=== PATIENT | female | born 1935 | race Hispanic/Latino ===

== ENCOUNTER 2017-04-07 12:11 | Emergency (ER) | payer MEDICARE, OTHER ==
[~2017-04-07] VITALS: Ht 149.9 cm; Wt 95.3 kg
[~2017-04-07 12:11] MED LIST: AMBIEN10 MG PO; ASPIR 8181 MG PO; Bumetanide PO; CALCIUM 500+D1 EACH PO; CATAPRES0.1 MG PO; CETIRIZINE HCL10 M1; CLONIDINE HCL0.1 MG PO; FAMOTIDINE20 MG PO; FEXOFENADINE H180 MG PO; FUROSEMIDE40 MG PO; GABAPENTIN100 MG PO; HYDRALAZINE HCL25 MG PO; LORATADINE10 MG PO; LOSARTAN POTAS100 MG PO; METOPROLOL TART50 MG PO; PANTOPRAZOLE SO40 MG PO; PLAVIX75 MG PO; PREDNISONE10 MG PO; SIMVASTATIN20 MG PO; TRAMADOL-ACETAMI1 EA PO; Torsemide PO; XOPENEX0.63 MG/3 INH
[2017-04-07] MEDS ORDERED: TETANUS/DIPHTHERIA TOX ADULT 0.5 ML SYR IM ONE (12:30)
[2017-04-07] MEDS ORDERED: BACITRACIN ZINC 0.9GM TP ONE (12:45)
== END 2017-04-07 13:05 | disposition home or self-care (01) ==
LOC: ER 12:11
DX: S81.811A Laceration without foreign body, right lower leg, initial encounter (principal); W22.09XA Striking against other stationary object, initial encounter; Y92.008 Other place in unspecified non-institutional (private) residence as the place of occurrence of the external cause; I10 Essential (primary) hypertension; I50.9 Heart failure, unspecified; Z86.73 Personal history of transient ischemic attack (TIA), and cerebral infarction without residual deficits; Z96.653 Presence of artificial knee joint, bilateral
CPT/HCPCS: 90471; 90714; 99283

== ENCOUNTER 2018-01-26 10:45 | Emergency (ER) | payer OTHER, MEDICARE ==
[~2018-01-26] VITALS: Ht 149.9 cm; Wt 78.9 kg
--- NOTE | 2018-01-26 12:06 | Diagnostic Imaging Report ---
EXAMINATION: CHEST SINGLE (PORTABLE) INDICATION: \S\shortness of breath \[id number] \S\1105 \S\Y COMPARISON: CT chest 03/06/2015 FINDINGS: AP view TUBES and LINES: None. LUNGS: Lungs are well inflated. Bilateral interstitial lung disease with worsening groundglass opacities in both lung bases. Unchanged bilateral hilar traction bronchiectasis. Rightward deviation of the trachea likely due to a tortuous thoracic aorta. PLEURA: No pleural effusion or pneumothorax. HEART AND MEDIASTINUM: The cardiac silhouette is within normal limits. Moderate calcifications of the aortic arch.. BONES AND SOFT TISSUES: Partially visualized intramedullary herman in the right humerus. Soft tissues are unremarkable. UPPER ABDOMEN: No free air under the diaphragm. IMPRESSION: Stable bronchiectasis and interstitial lung disease with worsening groundglass opacities in both lung bases may be due to new interstitial edema or atypical infection. Recommend follow-up chest radiograph in 4 weeks if patient becomes ambulatory. Signed by: Dr. Kat Babin M.D. on 01/26/2018 12:03 PM
[2018-01-26 12:13] LABS: INR 0.95; PROTHROMBIN TIME 13.5 seconds (11.9-14.5)
[2018-01-26 12:14] LABS: PARTIAL THROMBOPLASTIN TIME 33.3 seconds (23.8-35.5)
--- NOTE | 2018-01-26 12:19 | Diagnostic Imaging Report ---
EXAMINATION: Head CT HISTORY: Hand numbness COMPARISON: Head CT on 03/16/2015 TECHNIQUE: Multidetector axial images were obtained without contrast from the foramen magnum to the vertex . The images were reconstructed using brain and bone algorithms. Thin section brain images were reformatted into coronal and sagittal planes. Intravenous contrast: None. Image quality: Motion/streaking artifact limits the evaluation of the skull base and posterior cranial fossa. Dose modulation, iterative reconstruction, and/or weight based adjustment of the mA/kV was utilized to reduce the radiation dose to as low as reasonably achievable. FINDINGS: Parenchyma: 1. No mass, hemorrhage or acute cortical vascular insult. 2. 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 4. Hypodensities within the deep but predominantly subcortical white matter are nonspecific but are compatible with chronic small vessel ischemic changes. Subcortical distribution of chronic small vessel ischemic changes, such as that within the anterior temporal poles bilaterally are nonspecific but can be seen in CADASIL (cerebral autosomal dominant arteriopathy with subcortical infarcts and leukoencephalopathy). Extra-axial spaces:No abnormal density. No extra-axial fluid collections Brain volume: Normal for age. Ventricles: No hydrocephalus or displacement. Arteries: No density suggestive of thrombus. Dural sinuses: No abnormal density. Extra-axial spaces: No abnormal density. Foramen magnum: No mass, Chiari malformation, or basilar invagination. Sella: No obvious mass. Paranasal/mastoid sinuses: Imaged portions unremarkable. Skull/Scalp: No lytic or blastic lesions. No fractures. IMPRESSION: 1. No acute intracranial abnormalities. 2. Unchanged moderate nonspecific white matter changes as detailed above. 3. 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 Signed by: Dr. Elaine Parker M.D. on 01/26/2018 12:15 PM
[2018-01-26 12:23] LABS: BASOPHILS % 0.7 % (0.0-1.0); EOSINOPHILS # (AUTO) 0.3 (0.0-0.4); EOSINOPHILS % 5.8 % (0.0-6.0); HEMOGLOBIN 11.5 g/dL (12.0-16.0); LYMPHOCYTES # (AUTO) 2.4 (1.0-3.2); MEAN CORPUSCULAR HEMOGLOBIN 51.3 pg (28-32); MEAN CORPUSCULAR HGB CONC 52.8 g/dL (31-35); MEAN CORPUSCULAR VOLUME 97.3 fL (81-99); MONOCYTES # (AUTO) 0.7 (0.2-0.8); MONOCYTES % 11.6 % (4.4-11.3); NEUTROPHILS # (AUTO) 2.5 (2.1-6.9); NEUTROPHILS % 41.7 % (38.7-80.0); PLATELET COUNT 149 x10e3/uL (140-360); RED BLOOD COUNT 2.24 x10e6/uL (3.6-5.1); RED CELL DISTRIBUTION WIDTH 13.4 % (11.7-14.4)
[2018-01-26 12:39] LABS: CLARITY,URINE CLEAR (CLEAR); COLOR,URINE STRAW (YELLOW); LEUKOCYTE ESTERASE ,URINE NEGATIVE (NEGATIVE)
[2018-01-26 12:40] LABS: BILIRUBIN,URINE NEGATIVE (NEGATIVE); HEMATOCRIT 21.8 % (34.2-44.1); KETONES,URINE NEGATIVE (NEGATIVE); NITRITE,URINE NEGATIVE (NEGATIVE); PROTEIN,URINE DIPSTICK NEGATIVE (NEGATIVE); URINE UROBILINOGEN 0.2 mg/dL (0.2 - 1)
[2018-01-26 12:43] LABS: EPITHELIAL CELLS,URINE RARE /LPF
[2018-01-26 12:52] LABS: CREATINE KINASE MB 1.2 ng/mL (0-5.0)
[2018-01-26 14:32] LABS: ALBUMIN/GLOBULIN RATIO 1.4 (0.8-2.0); ANION GAP 17.4 mmol/L (8-16); CALCIUM 9.7 mg/dL (8.4-10.2); CREATININE, SERUM 1.07 mg/dL (0.57-1.11); MAGNESIUM 1.8 MG/DL (1.3-2.1); POTASSIUM 4.4 mmol/L (3.5-5.1)
[2018-01-26 14:42] LABS: B-TYPE NATRIURETIC PEPTIDE2 68.5 pg/mL (0-100)
[2018-01-26 17:25] VITALS: BP 161/68
== END 2018-01-26 16:55 | disposition home or self-care (01) ==
LOC: ER 10:45
DX: G62.9 Polyneuropathy, unspecified (principal); Z86.73 Personal history of transient ischemic attack (TIA), and cerebral infarction without residual deficits; M19.90 Unspecified osteoarthritis, unspecified site; I10 Essential (primary) hypertension; J84.10 Pulmonary fibrosis, unspecified; Z96.653 Presence of artificial knee joint, bilateral; Z96.622 Presence of left artificial elbow joint; Z96.621 Presence of right artificial elbow joint
CPT/HCPCS: 36415; 70450; 71045; 80053; 81001; 82550; 82553; 83605; 83735; 83880; 84484; 85025; 85610; 85730; 93005; 99284

== ENCOUNTER 2018-04-15 08:48 | Outpatient (RCR) | payer MEDICARE, OTHER | END 2018-04-19 | LOC: WCC 08:48 | PROVIDERS: ATTEND Family Medicine | DX: L97.429 Non-pressure chronic ulcer of left heel and midfoot with unspecified severity (principal); R60.9 Edema, unspecified; I87.2 Venous insufficiency (chronic) (peripheral); I63.9 Cerebral infarction, unspecified; I89.0 Lymphedema, not elsewhere classified; D75.82 Heparin induced thrombocytopenia (HIT); N18.3 Chronic kidney disease, stage 3 (moderate); I10 Essential (primary) hypertension; I50.9 Heart failure, unspecified; J44.9 Chronic obstructive pulmonary disease, unspecified; K57.92 Diverticulitis of intestine, part unspecified, without perforation or abscess without bleeding; M06.871 Other specified rheumatoid arthritis, right ankle and foot; M81.0 Age-related osteoporosis without current pathological fracture | CPT/HCPCS: 87071; 87075; 87186; 87205 ==

== ENCOUNTER 2018-04-28 15:12 | Outpatient (RCR) | payer MEDICARE, OTHER ==
[~2018-04-28 15:12] MED LIST changes: +LIDOCAINE VISC 2% SOLN 15 ML UDC ONE; +MUPIROCIN 2% OINT 22 GM TUBE ONE
[2018-05-18] MEDS ORDERED: CLOPIDOGREL75 MG PO (07:08)
[2018-05-18] MEDS ORDERED: RESTASIS1 EACH (07:08)
[2018-05-18] MEDS ORDERED: FIBER-TABS625 MG PO (07:08)
[2018-05-25] MEDS ORDERED: FERROUS SULFAT325 MG PO (09:39)
[2018-05-25] MEDS ORDERED: MELATONIN5 M2 PO (09:39)
== END 2018-05-20 ==
LOC: WCC 15:12
PROVIDERS: ATTEND Family Medicine
DX: L97.429 Non-pressure chronic ulcer of left heel and midfoot with unspecified severity (principal); B96.20 Unspecified Escherichia coli [E. coli] as the cause of diseases classified elsewhere; B96.89 Other specified bacterial agents as the cause of diseases classified elsewhere; R60.9 Edema, unspecified; I89.0 Lymphedema, not elsewhere classified; I87.2 Venous insufficiency (chronic) (peripheral); N18.3 Chronic kidney disease, stage 3 (moderate); I10 Essential (primary) hypertension; I63.9 Cerebral infarction, unspecified; D75.82 Heparin induced thrombocytopenia (HIT); I50.9 Heart failure, unspecified; J44.9 Chronic obstructive pulmonary disease, unspecified; K57.92 Diverticulitis of intestine, part unspecified, without perforation or abscess without bleeding; M06.871 Other specified rheumatoid arthritis, right ankle and foot; M81.0 Age-related osteoporosis without current pathological fracture

== ENCOUNTER 2018-05-17 14:51 | Inpatient (IN) | payer OTHER, MEDICARE ==
[~2018-05-17] VITALS: Ht 144.8 cm; Wt 87.5 kg
[~2018-05-17 14:51] MED LIST changes: -LIDOCAINE VISC 2% SOLN 15 ML UDC ONE; -MUPIROCIN 2% OINT 22 GM TUBE ONE
--- OUTSIDE RECORDS SUMMARY | 2018-05-17 14:54 | XMS REPORT ---
[facility] Address Unknown Phone Unavailable Care Team Providers Care Saw Boss Name Role Phone Shay VANESSA Unavailable Unavailable Problems This patient has no known problems. Allergies, Adverse Reactions, Alerts This patient has no known allergies or adverse reactions. Medications This patient has no known medications. Results Test Description Test Time Test Comments Text Results Atomic Results Result Comments CT BRAIN WO 2018-01-26 12:07:00 [facility] [address] [address] Patient Name: CARLOZ EDOUARD MR #: [id number] : 1935 Age/Sex: 83/F Req #: [id number] Adm Physician: Ordered by: ZULEMA BAÑUELOS SERVER SOFTWARE ENGINEER Report #: [id number] Location: ER Room/Bed: Procedure: [id number] CT/CT BRAIN WO Exam Date: 01/26/18 Exam Time: 1140 REPORT STATUS: Signed EXAMINATION: Head CT HISTORY: Hand numbness COMPARISON: Head CT on 03/16/2015 TECHNIQUE: Multidetector axial images were obtained without contrast from the foramen magnum to the vertex . The images were reconstructed using brain and bone algorithms. Thin section brain images were reformatted into coronal and sagittal planes. Intravenous contrast: None. Image quality: Motion/streaking artifact limits the evaluation of the skull base and posterior cranial fossa. Dose modulation, iterative reconstruction, and/or weight based adjustment of the mA/kV was utilized to reduce the radiation dose to as low as reasonably achievable. FINDINGS: Parenchyma: 1. No mass, hemorrhage or acute cortical vascular insult. 2. 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 4. Hypodensities within the deep but predominantly subcortical white matter are nonspecific but are compatible with chronic small vessel ischemic changes. Subcortical distribution of chronic small vessel ischemic changes, such as that within the anterior temporal poles bilaterally are nonspecific but can be seen in CADASIL (cerebral autosomal dominant arteriopathy with subcortical infarcts and leukoencephalopathy). Extra-axial spaces:No abnormal density. No extra-axial fluid collections Brain volume: Normal for age. Ventricles: No hydrocephalus or displacement. Arteries: No density suggestive of thrombus. Dural sinuses: No abnormal density. Extra-axial spaces: No abnormal density. Foramen magnum: No mass, Chiari malformation, or basilar invagination. Sella: No obvious mass. Paranasal/mastoid sinu ses: Imaged portions unremarkable. Skull/Scalp: No lytic or blastic lesions. No fractures. IMPRESSION: 1. No acute intracranial abnormalities. 2. Unchanged moderate nonspecific white matter changes as detailed above. 3. 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 Signed by: Dr. Gladys Parker M.D. on 01/26/2018 12:15 PM Dictated By: GLADYS PARKER MD 1215 Transcribed By: JAIME on 01/26/18 1215 COPY TO: ZULEMA BAÑUELOS NP CHEST SINGLE (PORTABLE) 2018-01-26 12:00:00 [address] [address] Patient Name: CARLOZ EDOUARD MR #: [id number] : 1935 Age/Sex: 83/F Req #: [id number] Adm Physician: Ordered by: ZULEMA BAÑUELOS NP Report #: [id number] Location: ER Room/Bed: Procedure: [id number] DX/CHEST SINGLE (PORTABLE) Exam Date: 01/26/18 Exam Time: 1105 REPORT STATUS: Signed EXAMINATION: CHEST SINGLE (PORTABLE) INDICATION: COMPARISON: CT chest 03/06/2015 FINDINGS: AP view TUBES and LINES: None. LUNGS: Lungs are well inflated. Bilateral interstitial lung disease with worsening groundglass opacities in both lung bases. Unchanged bilateral hilar traction bronchiectasis. Rightward deviation of the trachea likely due to a tortuous thoracic aorta. PLEURA: No pleural effusion or pneumothorax. HEART AND MEDIASTINUM: The cardiac silhouette is within normal limits. Moderate calcifications of the aortic arch.. BONES AND SOFT TISSUES: Partially visualized intramedullary herman in the right humerus. Soft tissues are unremarkable. UPPER ABDOMEN: No free air under the diaphragm. IMPRESSION: Stable bronchiectasis and interstitial lung disease with worsening groundglass opacities in both lung bases may be due to new interstitial edema or atypical infection. Recommend follow-up chest radiograph in 4 weeks if patient becomes ambulatory. Signed by: Dr. Mk Santos M.D. on 01/26/2018 12:03 PM Dictated By: MK SANTOS MD 1203 Transcribed By: JAIME on 01/26/18 1203 COPY TO: ZULEMA BAÑULEOS NP
--- OUTSIDE RECORDS SUMMARY | 2018-05-17 14:54 | XMS REPORT | Summary of Care ---
Author Author Wendi Muñoz M.A. Organization Unknown Address [facility] Phone Unavailable Care Team Providers Care Lpta Name Role Phone ERIK Turner, JENA Unavailable Unavailable RIA Ferguson, LAMAR Unavailable Unavailable DAVID Ferguson, JAQUELIN Unavailable Unavailable SASHA Ferguson, VALENTINO Unavailable Unavailable RIA CAMARILLO [place], LAMAR [place] Unavailable Unavailable DAVID CAMAR[place]O [place], JAQUELIN Unavailable Unavailable Sasha CAMARILLO, Valentino Unavailable Unavailable Unavailable Unavailable Functional Status Name Dates Details Functional status health issues are not documented Status: Name Dates Details Cognitive status health issues are not documented Status: Problems Name Dates Details Reaction, drug, adverse (E947.9, T50.905A) Status: Active Chronic depression (311, F32.9) Status: Active Urine incontinence (788.30, R32) Status: Active Arteritis (447.6, I77.6) Status: Active Heart failure (428.9, I50.9) Status: Active Chronic left shoulder pain (719.41, M25.512) Status: Active PMR (polymyalgia rheumatica) (725, M35.3) Status: Active On corticosteroid therapy (V58.65, Z79.52) Status: Active Diverticulitis of colon (562.11, K57.32) Status: Active Asymptomatic hyperuricemia (790.6, E79.0) Status: Active Encounter for coordination of complex care (V65.49, Z71.89) Status: Active Poor tolerance for ambulation (V49.89, Z78.9) Status: Active Lichen simplex chronicus (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.3, L28.0) Status: Active Prerenal azotemia (790.6, R79.89) Status: Active Bradycardia (427.89, R00.1) Status: Active Arteriosclerosis of carotid artery (433.10, I65.29) Status: Active Need for pneumococcal vaccine (V03.82, Z23) Status: Active Obesity, Class III, BMI 40-49.9 (morbid obesity) (278.01, E66.01) Status: Active 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, M19.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) Status: Active COPD with acute exacerbation (491.21, J44.1) Status: Active Constipation (564.00, K59.00) Status: Active Allergic rhinitis (477.9, J30.9) Status: Active Traumatic ulcer of right lower extremity, limited to breakdown of skin with infection (707.10, L97.911) Status: Active Glossitis (529.0, K14.0) Status: Active 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, K11.7) Status: Active Adverse drug effect (E947.9, T50.905A) Status: Active Dry eyes, bilateral (375.15, H04.123) Status: Active Nausea and vomiting, intractability of vomiting not specified, unspecified vomiting type (787.01, R11.2) Status: Active Right ankle pain (719.47, M25.571) Status: Active Right ankle swelling (719.07, M25.471) Status: Active Synovitis of right ankle (727.06, M65.9) Status: Active Thrombocytopenia (287.5, D69.6) Status: Active History of stroke (V12.54, Z86.73) Status: Active Chronic pain (338.29, G89.29) Status: Active Olecranon bursitis (726.33, M70.20) Status: Active Edema (782.3, R60.9) Status: Active Dysuria (788.1, R30.0) Status: Active MCI (mild cognitive impairment) (331.83, G31.84) Status: Active GCA (giant cell arteritis) (446.5, M31.6) Status: Active Carotid stenosis (433.10, I65.29) Status: Active NSIP (nonspecific interstitial pneumonia) (516.8, J84.89) Status: Active Flu vaccine need (V04.81, Z23) Status: Active Encounter for Medicare annual wellness exam (V70.0, Z00.00) Status: Active Chronic obstructive pulmonary disease (496, J44.9) Status: Active Lymphedema (457.1, I89.0) Status: Active Congestive heart failure (428.0, I50.9) Status: Active Advance directive discussed with patient (V65.49, Z71.89) Status: Active Acid reflux (530.81, K21.9) Status: Active BMI 39.0-39.9,adult (V85.39, Z68.39) Status: Active Rash of groin (782.1, R21) Status: Active Infection of toe (686.9, L08.9) Status: Active Hypercholesterolemia (272.0, E78.00) Status: Active 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, 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, 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), w CHF (404.11, I13.0) Status: Active Vitamin D deficiency (268.9, E55.9) Status: Active Onychomycosis of toenail (110.1, B35.1) Status: Active 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 (714.0, M05.771) Status: Active Osteoporosis (733.00, M81.0) Status: Active Visit for monitoring Actemra therapy (V58.83, Z51.81) Status: Active Encounter for monitoring denosumab therapy (V58.83, Z51.81) Status: Active Heel ulcer (707.14, L97.409) Status: Active Essential hypertension, benign (401.1, I10) Status: Active Heel ulceration, left, with unspecified severity (707.14, L97.429) Status: Active Counseling regarding advanced directives (V65.49, Z71.89) Status: Active Candidal intertrigo (112.3, B37.2) Status: Active Acute diverticulitis (562.11, K57.92) Status: Active Rheumatoid arthritis (714.0, M06.9) Status: Active Immunosuppressed status (279.9, D89.9) Status: Active Medications Name Dates Details Metoprolol Tartrate 50 MG Oral Tablet TAKE ONE-HALF (1/2) TABLET TWICE A DAY Quantity: 90 LAMAR ROLLINS M.D. * Start : 18-Jan-2018 Active Pantoprazole Sodium 40 MG Oral Tablet Delayed Release TAKE 1 TABLET DAILY * Quantity: 90 Refills: 1 LAMAR ROLLINS M.D. * Start : 05-Apr-2018 Active Tylenol Arthritis Ext Relief 650 MG TBCR take one tablet as needed * Refills: 0 Active HydrALAZINE HCl - 50 MG Oral Tablet TAKE ONE TABLET BY MOUTH THREE TIMES A DAY * Quantity: 90 Refills: 2 LAMAR ROLLINS M.D. * Start : 03-Mar-2018 Active Clopidogrel Bisulfate 75 MG Oral Tablet TAKE ONE TABLET BY MOUTH DAILY * Quantity: 30 Refills: 4 LAMAR ROLLINS M.D. * Start : 16-Apr-2018 Active Losartan Potassium 100 MG Oral Tablet TAKE ONE-HALF (1/2) TABLET DAILY * Quantity: 45 Refills: 1 JENA VALENCIA N.P. * Start : 10-May-2018 Active Bumetanide 1 MG Oral Tablet TAKE ONE TABLET BY MOUTH ON THURSDAY, THURSDAY, AND THURSDAY * Quantity: 15 Refills: 2 LAMAR ROLLINS M.D. * Start : 15-Mar-2018 Active CloNIDine HCl - 0.1 MG Oral Tablet TAKE ONE TABLET BY MOUTH TWICE A DAY * Quantity: 60 Refills: 4 LAMAR ROLLINS M.D. * Start : 15-Mar-2018 Active Actemra 400 MG/20ML Intravenous Solution Infuse 800mg IV monthly for rheumatoid arthritis (pt weight ~80kg, administering max dose) * Quantity: 2 Refills: 6 MIRA HERNANDEZ M.D.NHRachel * Start : 01-Jun-2015 Active 20 ML Vial Prolia 60 MG/ML Subcutaneous Solution INJECT SUBCUTANEOUSLY 60 MG / 1 ML EVERY 6 MONTHS * Quantity: 1 Refills: 4 JAQUELIN HERNANDEZ M.D. * Start : 10-Jul-2015 Active Milliliter Simvastatin 20 MG Oral Tablet TAKE ONE TABLET BY MOUTH EVERY NIGHT AT BEDTIME * Quantity: 30 Refills: 3 VALENTINO BAEZ M.D. * Start : 08-Jan-2018 Active DME [facility] B[facility] * Quantity: 1 Refills: 0 LAMAR ROLLINS M.D. * Start : 28-Sep-2015 Active Famotidine 40 MG Oral Tablet TAKE ONE TABLET BY MOUTH DAILY * Quantity: 30 Refills: 3 LAMAR ROLLINS M.D. * Start : 08-Jan-2018 Active Gelocast Unnas Boot External USE EXTERNALLY DIRECTED * Quantity: 10 Refills: 0 JENA VALENCIA N.P. * Start : 26-Dec-2015 Active Cetirizine HCl - 10 MG Oral Tablet TAKE ONE TABLET BY MOUTH DAILY EVERY NIGHT AT BEDTIME * Quantity: 30 Refills: 2 LAMAR ROLLINS M.D. * Start : 16-Mar-2018 Active Fiber CAPS TAKE 1 CAPSULE DAILY * Refills: 0 Active Multivitamins CAPS TAKE 1 CAPSULE DAILY * Refills: 0 Active Restasis 0.05 % Ophthalmic Emulsion Instill 1 drop into both eyes daily * Refills: 0 Active Vitamin D (Ergocalciferol) 16830 UNIT Oral Capsule TAKE 1 CAPSULE WEEKLY. * Quantity: 12 Refills: 0 JAQUELIN HERNANDEZ M.D. * Start : 18-Dec-2017 Active Mupirocin 2 % External Ointment APPLY A SMALL AMOUNT 3 TIMES DAILYTO ERODED AREAS OF SKIN. * Quantity: 1 Refills: 11 LAMAR ROLLINS M.D. * Start : 06-Apr-2018 End : 29-Jun-2018 Active 22 GM Tube Allergies and Adverse Reactions Name Dates Details Codeine Derivatives (Allergy) Status: Active Gabapentin TABS (Allergy) Reaction: Hallucinations Status: Active Hydrocodone-Acetaminophen TABS (Allergy) Status: Active Morphine Derivatives (Allergy) Status: Active TraMADol HCl TABS (Allergy) Reaction: Hallucinations Status: Active Past Medical History Name Dates Details History of Acute rhinosinusitis (461.9, J01.90) Status: Resolved History of Acute right hip pain (719.45, M25.551) Status: Resolved History of Ankle deformity, right (736.79, M21.961) Status: Resolved History of Arthralgia of left hand (719.44, M25.542) Status: Resolved History of Arthralgia of right hand (719.44, M25.541) Status: Resolved History of Bilateral shoulder pain (719.41, M25.511) Status: Resolved History of blurred vision (V12.49, Z86.69) Status: Resolved History of Bruising (924.9, T14.8XXA) Status: Resolved History of candidiasis (V12.09, Z86.19) Status: Resolved History of candidiasis of mouth (V12.09, Z86.19) Status: Resolved History of cellulitis (V13.3, Z87.2) Status: Resolved History of cerebral atherosclerosis (V12.59, Z86.79) Status: Resolved History of Chronic pain (338.29, G89.29) Status: Resolved History of Coccygeal pain (724.79, M53.3) Status: Resolved History of cough Status: Resolved History of Decubitus ulcer of right buttock, stage 1 (707.05, L89.311) Status: Resolved History of Difficulty eating (783.3, R63.8) Status: Resolved History of dyspnea (V12.69, Z87.09) Status: Resolved History of Elbow pain, chronic, right (719.42, M25.521) Status: Resolved History of Encounter for Medicare annual wellness exam (V70.0, Z00.00) Status: Resolved History of essential hypertension (V12.59, Z86.79) Status: Resolved History of Extremity pain (729.5, M79.609) Status: Resolved History of Fall at home (E888.9, W19.XXXA) Status: Resolved History of fracture of humerus (V15.51, Z87.81) Status: Resolved History of fracture with nonunion (V13.59, Z87.39) Status: Resolved History of History of removal of [place] (V49.89, Z92.89) Status: Resolved History of Iliopsoas bursitis of right hip (726.5, M70.71) Status: Resolved History of Leg pain, lateral, left (729.5, M79.605) Status: Resolved History of Mucous retention cyst of skin (706.2, L72.8) Status: Resolved History of Multiparity (V61.5, Z64.1) Status: Resolved History of Multiple bruises (924.8, T07.XXXA) Status: Resolved History of Olecranon bursitis (726.33, M70.20) Status: Resolved History of Open wound of lower extremity, left, initial encounter (891.0, S81.802A) Status: Resolved History of osteopenia (V13.59, Z87.39) Status: Resolved History of Pain in both feet (729.5, M79.671) Status: Resolved History of Paronychia of toe (681.11, L03.039) Status: Resolved History of peripheral edema (V13.89, Z87.898) Status: Resolved History of pneumococcal vaccination (V49.89, Z92.29) Status: Resolved History of Pneumonia, primary atypical (486, J18.9) Status: Resolved History of Posterior pain of right hip (719.45, M25.551) Status: Resolved History of scabies (V12.09, Z86.19) Status: Resolved History of Scratches (919.0, T14.8XXA) Status: Resolved History of Skin lesion (709.9, L98.9) Status: Resolved History of Tenderness of hip, left (719.45, M25.552) Status: Resolved History of Tightness in chest (786.59, R07.89) Status: Resolved History of Upper respiratory infection, acute (465.9, J06.9) Status: Resolved Personal history of urinary tract infection (V13.02, Z87.440) Status: Resolved Procedures Procedure Dates Details History of Hysterectomy Completed History of Knee Replacement Completed History of Elbow Arthroplasty Total Elbow Replacement Completed Immunization Name Dates Details Pneumococcal polysaccharide vaccine, 23 valent on: 19-Aug-2008 Influenza on: 06-Jan-2012 Fluzone INJ Lot #: [id number] on: 04-Mar-2013 Influenza Lot #: [id number] on: 24-Mar-2014 Fluvirin INJ Lot #: [id number] on: 29-Dec-2014 Prevnar 13 Intramuscular Suspension Lot #: [id number] on: 26-Jan-2015 PPD on: 30-Apr-2015 Fluzone INJ Lot #: [id number] on: 18-Jan-2016 PPD, tuberculin skin test; purified protein derivative solution, intradermal on: 13-Jun-2016 Pneumovax 23 25 MCG/0.5ML Injection Injectable Lot #: [id number] on: 13-Nov-2016 Fluzone High-Dose 0.5 ML Intramuscular Suspension Prefilled Syringe Lot #: [id number] on: 12-Jan-2017 Fluzone High-Dose 0.5 ML Intramuscular Suspension Prefilled Syringe Lot #: [id number] on: 23-Dec-2017 PPD, tuberculin skin test; purified protein derivative solution, intradermal on: 18-Mar-2018 Family History Name Dates Details Family history of Hypertension (V17.49) Status: Active Family history of Rheumatoid Arthritis Status: Active Family history of Coronary artery disease (414.00, I25.10) Status: Active Name Dates Details Family history of Ischemic Stroke (V17.1) Status: Active Family history of Rheumatoid Arthritis Status: Active Social History Name Dates Details - Status: Name Dates Details Former smoker Vital Signs Date Test Result Details [id number] BP Systolic 143 mm[Hg] Status: Comments: Location: LUE; Position: Sitting BP Diastolic 87 mm[Hg] Status: Comments: Location: LUE; Position: Sitting Physical Findings 10 Status: Comments: Pain Scale Height 56 in Status: Temperature 98.2 f Status: Comments: Method: Oral Heart Rate 76 /min Status: Respiration Rate 16 /min Status: Results Date Description Value Details Results not documented Plan of Care Name Dates Details Planned Observations Planned Goals not documented Planned Encounters Appointment; TRUDY TORRES On: 18-May-2018 11:00 Appointment; VALENTINO BAEZ M.D. On: 18-May-2018 12:00 Appointment; LAMAR ROLLINS M.D. On: 25-May-2018 13:30 Appointment; JAQUELIN HERNANDEZ M.D. On: 17-Jun-2018 10:30 Interventions Provided Plan* Needs evaluation of possible acute abdomen. Refer to ED at [facility]. Instructions Name Dates Details Instructions not documented Encounters Appointment; JAQUELIN HERNANDEZ M.D. Encounter Diagnosis: Problem not documented On: 23-May-2016 10:30 Appointment; LAMAR ROLLINS M.D. Encounter Diagnosis: Problem not documented On: 30-Jun-2016 13:30 Appointment; LAMAR ROLLINS M.D. Encounter Diagnosis: Problem not documented On: 15-Jul-2016 14:45 Appointment; VALENTINO BAEZ M.D. Encounter Diagnosis: Problem not documented On: 06-Aug-2016 18:40 Appointment; JAQUELIN HERNANDEZ M.D. Encounter Diagnosis: Problem not documented On: 22-Aug-2016 10:00 Appointment; LAMAR ROLLINS M.D. Encounter Diagnosis: Problem not documented On: 26-Aug-2016 15:00 Appointment; LAMAR ROLLINS M.D. Encounter Diagnosis: Problem not documented On: 05-Sep-2016 15:00 Appointment; LAMAR ROLLINS M.D. Encounter Diagnosis: Problem not documented On: 30-Sep-2016 13:30 Appointment; KENZIE ORNELAS P.A. Encounter Diagnosis: Problem not documented On: 14-Oct-2016 9:00 Appointment; LAMAR ROLLINS M.D. Encounter Diagnosis: Problem not documented On: 28-Oct-2016 14:15 Appointment; LAMAR ROLLINS M.D. Encounter Diagnosis: Problem not documented On: 11-Nov-2016 14:15 Appointment; JENA VALENCIA NP Encounter Diagnosis: Problem not documented On: 13-Nov-2016 9:30 Appointment; JAQUELIN HERNANDEZ M.D. Encounter Diagnosis: Problem not documented On: 25-Nov-2016 10:30 Appointment; JAQUELIN HERNANDEZ M.D. Encounter Diagnosis: Problem not documented On: 04-Dec-2016 11:00 Appointment; LAMAR ROLLINS M.D. Encounter Diagnosis: Problem not documented On: 30-Dec-2016 15:15 Appointment; LAMAR ROLLINS M.D. Encounter Diagnosis: Problem not documented On: 12-Jan-2017 13:15 Appointment; TRUDY TORRES Encounter Diagnosis: Problem not documented On: 05-Feb-2017 14:00 Appointment; VALENTINO BAEZ M.D. Encounter Diagnosis: Problem not documented On: 10-Feb-2017 14:00 Appointment; JAQUELIN HERNANDEZ M.D. Encounter Diagnosis: Problem not documented On: 10-Mar-2017 14:00 Appointment; LAMAR ROLLINS M.D. Encounter Diagnosis: Problem not documented On: 17-Mar-2017 13:15 Appointment; LAMAR ROLLINS M.D. Encounter Diagnosis: Problem not documented On: 14-Apr-2017 11:15 Appointment; LAMAR ROLLINS M.D. Encounter Diagnosis: Problem not documented On: 19-May-2017 14:15 Appointment; LAMAR ROLLINS M.D. Encounter Diagnosis: Problem not documented On: 26-May-2017 15:15 Appointment; LAMAR ROLLINS M.D. Encounter Diagnosis: Problem not documented On: 05-Jun-2017 13:30 Appointment; JAQUELIN HERNANDEZ M.D. Encounter Diagnosis: Problem not documented On: 11-Jun-2017 10:30 Appointment; JAQUELIN HERNANDEZ M.D. Encounter Diagnosis: Problem not documented On: 15-Jun-2017 10:30 Appointment; LAMAR ROLLINS M.D. Encounter Diagnosis: Problem not documented On: 19-Jun-2017 13:30 Appointment; JAQUELIN HERNANDEZ M.D. Encounter Diagnosis: Problem not documented On: 29-Jun-2017 15:00 Appointment; LAMAR ROLLINS M.D. Encounter Diagnosis: Problem not documented On: 20-Jul-2017 14:15 Appointment; JAQUELIN HERNANDEZ M.D. Encounter Diagnosis: Problem not documented On: 10-Aug-2017 14:30 Appointment; LAMAR ROLLINS M.D. Encounter Diagnosis: Problem not documented On: 24-Aug-2017 14:15 Appointment; JAQUELIN HERNANDEZ M.D. Encounter Diagnosis: Problem not documented On: 08-Sep-2017 11:00 Appointment; JAQUELIN HERNANDEZ M.D. Encounter Diagnosis: Problem not documented On: 15-Sep-2017 9:30 Appointment; CAM LLANOS M.D. Encounter Diagnosis: Problem not documented On: 18-Sep-2017 8:30 Appointment; LAMAR ROLLINS M.D. Encounter Diagnosis: Problem not documented On: 07-Oct-2017 13:30 Appointment; LAMAR ROLLINS M.D. Encounter Diagnosis: Problem not documented On: 19-Oct-2017 13:45 Appointment; LAMAR ROLLINS M.D. Encounter Diagnosis: Problem not documented On: 10-Nov-2017 11:00 Appointment; VALENTINO BAEZ M.D. Encounter Diagnosis: Problem not documented On: 15-Dec-2017 14:00 Appointment; JAQUELIN HERNANDEZ M.D. Encounter Diagnosis: Problem not documented On: 17-Dec-2017 10:00 Appointment; LAMAR ROLLINS M.D. Encounter Diagnosis: Problem not documented On: 23-Dec-2017 13:15 Appointment; JENA VALENCIA NP Encounter Diagnosis: Problem not documented On: 31-Dec-2017 13:00 Appointment; KOLE BARRETO M.D. Encounter Diagnosis: Problem not documented On: 08-Jan-2018 9:15 Appointment; LAMAR ROLLINS M.D. Encounter Diagnosis: Problem not documented On: 02-Feb-2018 13:45 Appointment; LAMAR ROLLINS M.D. Encounter Diagnosis: Problem not documented On: 23-Feb-2018 13:15 Appointment; JAQUELIN HERNANDEZ M.D. Encounter Diagnosis: Problem not documented On: 18-Mar-2018 10:30 Appointment; LAMAR ROLLINS M.D. Encounter Diagnosis: Problem not documented On: 06-Apr-2018 14:00 Appointment; VALENTINO BAEZ M.D. Encounter Diagnosis: Problem not documented On: 09-Apr-2018 14:00 Appointment; LAMAR ROLLINS M.D. Encounter Diagnosis: Problem not documented On: 17-May-2018 13:30
[2018-05-17] MEDS ORDERED: DIATRIZOATE MEGL/DIATRIZOA SOD 30 ML BTL PO ONE (15:32)
[2018-05-17 16:03] LABS: BASOPHILS # (AUTO) 0.1 (0.0-0.1); BASOPHILS % 0.9 % (0.0-1.0); EOSINOPHILS # (AUTO) 0.2 (0.0-0.4); EOSINOPHILS % 3.5 % (0.0-6.0); HEMATOCRIT 24.1 % (34.2-44.1); HEMOGLOBIN 8.7 g/dL (12.0-16.0); LYMPHOCYTES # (AUTO) 2.2 (1.0-3.2); LYMPHOCYTES % 38.7 % (18.0-39.1); MEAN CORPUSCULAR HEMOGLOBIN 36.4 pg (28-32); MEAN CORPUSCULAR HGB CONC 36.1 g/dL (31-35); MEAN CORPUSCULAR VOLUME 100.8 fL (81-99); MONOCYTES # (AUTO) 0.8 (0.2-0.8); MONOCYTES % 13.7 % (4.4-11.3); NEUTROPHILS # (AUTO) 2.5 (2.1-6.9); PLATELET COUNT 156 x10e3/uL (140-360); RED BLOOD COUNT 2.39 x10e6/uL (3.6-5.1); RED CELL DISTRIBUTION WIDTH 13.2 % (11.7-14.4)
[2018-05-17 16:20] LABS: ALBUMIN 3.9 g/dL (3.5-5.0); ALBUMIN/GLOBULIN RATIO 1.6 (0.8-2.0); ANION GAP 14.8 mmol/L (8-16); CALCIUM 8.7 mg/dL (8.4-10.2); CREATININE, SERUM 1.6 mg/dL (0.57-1.11); POTASSIUM 4.8 mmol/L (3.5-5.1)
--- NOTE | 2018-05-17 16:35 | NUR ---
AT BEDSIDE TO PLACE PUREWICK EXTERNAL URINARY CATHETER FOR PT AT THIS TIME; PT STATES TO HAVE HAD EPISODES OF INCONTINENCE; DIAPER CHANGED, WOLF CARE PROVIDED, SHEETS CHANGED AND ADJUSTED WITH INCONTINENCE PAD AND DIAPER, PT REPOSITIONED IN BED AT THIS TIME; PUREWICK EXTERNAL URINARY CATH PLACED @40 mmHg TO CONTINUOUS WALL SUCTION; PT AND DAUGHTER INSTRUCTED ON PURPOSE OF INTERVENTION, VERBALIZED UNDERSTANDING AND TOLERATING WELL AT THIS TIME.
[2018-05-17] MEDS: ACETAMINOPHEN 325 MG TAB PO PRN (17:12)
[2018-05-17] MEDS ORDERED: SODIUM CHLORIDE 0.9% 1000ML 1,000 ML IV ONE (18:00)
--- NOTE | 2018-05-17 18:40 | NUR ---
Pt noted to have large liquid brown malodorous stool. Marj-care performed, new linens & diaper applied. Repositioned to comfort.
--- NOTE | 2018-05-17 19:00 | NUR ---
Report to Luis Fernando Flores RN.
[2018-05-17 19:03] LABS: BILIRUBIN,URINE NEGATIVE (NEGATIVE); CLARITY,URINE CLEAR (CLEAR); COLOR,URINE YELLOW (YELLOW); KETONES,URINE NEGATIVE (NEGATIVE); LEUKOCYTE ESTERASE ,URINE NEGATIVE (NEGATIVE); NITRITE,URINE NEGATIVE (NEGATIVE); PROTEIN,URINE DIPSTICK NEGATIVE (NEGATIVE); URINE UROBILINOGEN 0.2 mg/dL (0.2 - 1)
[2018-05-17 19:15] LABS: RBC,URINE 0-5 /HPF (0-5); WBC,URINE (MAN) 0-5 /HPF (0-5)
[2018-05-17 19:16] LABS: BACTERIA,URINE RARE /HPF; EPITHELIAL CELLS,URINE FEW /LPF
[2018-05-17 19:54] LABS: OCCULT BLOOD STOOL NEGATIVE (NEGATIVE)
--- NOTE | 2018-05-17 20:02 | Diagnostic Imaging Report ---
EXAM: CT Abdomen and Pelvis WITHOUT contrast INDICATION: pain COMPARISON: 03/06/2015 CT, no report available TECHNIQUE: Abdomen and Pelvis was scanned utilizing a multidetector helical scanner without the use of IV contrast. Coronal and sagittal reformations were obtained. IV CONTRAST: None COMPLICATIONS: None RADIATION DOSE: Total DLP: 693 mGy*cm Estimated effective dose: (DLP x 0.015 x size factor) mSv CTDIvol has been reviewed. It is below the limits set by the Radiation Protocol Committee (RPC). Appropriate CT dose reduction techniques were utilized. FINDINGS: Abdomen: Lung Bases: Patchy basilar opacities. Solid Organs: Cholecystectomy clips. Nonenhanced images liver, adrenals, spleen, and pancreas unremarkable. Mildly atrophic kidneys, stable. Upper GI Tract: No small bowel obstructive changes. Oral contrast present in the colon. Vascularity: Moderate aortic vascular calcifications with no aneurysm. Lymph Nodes: No suspicious adenopathy. Other: Postsurgical changes along the ventral abdominal wall asymmetric to the right with small fat-containing umbilical hernia. There is asymmetry of the inferior left rectus musculature with subcutaneous stranding. Ill-defined soft tissue density and stranding extends into the left paracolic gutter. Pelvis: Bladder: Poorly evaluated due to spray artifact from bilateral hip postsurgical changes. Other: Patulous left inguinal canal. Ill-defined stranding/soft tissue density in the perirectal region poorly evaluated due to spray artifact. Colon: Enteric contrast. No acute colonic findings. Bones: Severe degenerative changes with S-shaped curvature and areas of height loss, unchanged. IMPRESSION: 1. Asymmetric thickening of the left rectus musculature, subcutaneous stranding on the left, ill-defined stranding and soft tissue densities extending into the left paracolic gutter and perirectal regions. Findings likely represent blood products/hematoma. Infectious process not excluded. Correlation with history. 2. Patchy opacities lung bases could represent atelectasis or pneumonia. 3. No distinct diverticulitis. Ill-defined stranding about the sigmoid colon and rectum likely related to above described process. Signed by: Dr. Singh Snow MD on 05/17/2018 7:58 PM
[2018-05-17] MEDS ORDERED: LEVOFLOXACIN 500MG/D5W 100ML IV SCH (20:30)
[2018-05-17] MEDS ORDERED: METRONIDAZOLE 500MG/NS 100ML IV SCH (20:30)
[2018-05-17] MEDS ORDERED: HYDROMORPHONE 1MG/1ML INJ IV PRN (20:30)
[2018-05-17] MEDS ORDERED: LEVOFLOXACIN 500MG/D5W 100ML 100 ML IV SCH (20:45)
[2018-05-17] MEDS: SODIUM CHLORIDE 0.9% 1000ML 1,000 ML IV SCH (21:14)
--- NOTE | 2018-05-17 21:25 | NUR ---
Received report from ER nurse. Nurse states Pt BP at 153/104. Requested treatment of high blood pressure. Nurse states will get meds ordered from ER MD.
[2018-05-17] MEDS: METRONIDAZOLE 500MG/NS 100ML 100 ML IV SCH (21:30)
--- NOTE | 2018-05-17 21:30 | NUR ---
ER nurse states patient BP at 160/76. Will f/u on elevated BP.
[2018-05-17 21:51] VITALS: BP 192/86
--- NOTE | 2018-05-17 21:52 | NUR ---
Patient arrived to floor via stretcher from ER.
[2018-05-18] VITALS (8 sets, daily range): BP systolic 134–190; BP diastolic 62–79
--- NOTE | 2018-05-18 01:00 | NUR ---
Patient Admit and assessment completed. Patient c/o pain to left lower abd. Patient given meds as ordered by MD. Bp elevated due to increase pain. Continue monitor. Patient positioned in bed for comfort. Patient weeping from lower extremities. Dressing intake to legs. Per patient left heel debrided 2weeks ago. Right heel dark.
[2018-05-18] MEDS: METRONIDAZOLE 500MG/NS 100ML 100 ML IV SCH ×4 (03:00→20:28)
[2018-05-18] MEDS: HYDRALAZINE HCL 20 MG/ML VIAL IV PRN (03:59)
[2018-05-18] MEDS: HYDROMORPHONE 2MG/ML 2 MG/ML ML IV PRN ×3 (03:59→17:05)
[2018-05-18] MEDS: ONDANSETRON HCL INJ 2MG/ML 2ML 2 MG/ML VIAL IV PRN (04:00)
[2018-05-18 05:37] LABS: BASOPHILS % 0.5 % (0.0-1.0); EOSINOPHILS # (AUTO) 0.2 (0.0-0.4); EOSINOPHILS % 3.3 % (0.0-6.0); HEMATOCRIT 23.2 % (34.2-44.1); HEMOGLOBIN 9.1 g/dL (12.0-16.0); LYMPHOCYTES # (AUTO) 2.4 (1.0-3.2); MEAN CORPUSCULAR HEMOGLOBIN 38.4 pg (28-32); MEAN CORPUSCULAR HGB CONC 39.2 g/dL (31-35); MEAN CORPUSCULAR VOLUME 97.9 fL (81-99); MONOCYTES # (AUTO) 0.8 (0.2-0.8); MONOCYTES % 12.7 % (4.4-11.3); NEUTROPHILS # (AUTO) 2.9 (2.1-6.9); NEUTROPHILS % 45.2 % (38.7-80.0); PLATELET COUNT 169 x10e3/uL (140-360); RED BLOOD COUNT 2.37 x10e6/uL (3.6-5.1); RED CELL DISTRIBUTION WIDTH 12.8 % (11.7-14.4)
[2018-05-18 05:42] LABS: ALBUMIN 3.6 g/dL (3.5-5.0); ALBUMIN/GLOBULIN RATIO 1.7 (0.8-2.0); ANION GAP 14.9 mmol/L (8-16); CALCIUM 8.3 mg/dL (8.4-10.2); CREATININE, SERUM 1.18 mg/dL (0.57-1.11); POTASSIUM 3.9 mmol/L (3.5-5.1)
--- NOTE | 2018-05-18 06:08 | NUR ---
Patient BP elevate at 190/79. Meds given for BP. Patient also has pain. Recheck BP.
[2018-05-18] MEDS ORDERED: CLOPIDOGREL75 MG PO (07:08)
[2018-05-18] MEDS ORDERED: FIBER-TABS625 MG PO (07:08)
[2018-05-18] MEDS ORDERED: RESTASIS1 EACH (07:08)
[2018-05-18 07:28] LABS: ANISOCYTOSIS SLIGHT; HYPOCHROMASIA SLIGHT; PLATELET ESTIMATE ADEQUATE; PLATELET MORPHOLOGY COMMENT NORMAL; RBC MORPHOLOGY COMMENT NORMAL
--- NOTE | 2018-05-18 09:10 | NUR ---
Pt received resting in bed with daughter at bedside. Alert and oriented x2 but forgetful. Pt with IV infusing via right AC. Pt is NPO due to diagnosis of diverticulitis. Pt with skin tear to right upper arm, and lymphedema to both lower extremities. Lower extremities wrapped in [employer]. Oriented to staff and surroundings. Encouraged to press call ken if help needed. All meds given as ordered. Emotional support given. Will monitor
[2018-05-18 10:16] LABS: C DIFFICILE TOXIN A&B AMP PROB NEGATIVE (NEGATIVE)
[2018-05-18] MEDS ORDERED: CEFEPIME HCL 1 GM VIAL IV SCH (12:15)
[2018-05-18] MEDS: SODIUM CHLORIDE 0.9% 1000ML 1,000 ML IV SCH ×2 (12:41→21:00)
[2018-05-18] MEDS: VANCOMYCIN 1GM/NS 250 ML 250 ML IV SCH ×2 (13:09→23:55)
[2018-05-18] MEDS: CEFEPIME 1GM/NS 0.9% 50 ML 50 ML IV SCH (14:18)
--- NOTE | 2018-05-18 15:20 | NUR ---
Visit made by the Spiritual Care Department Pastoral Visitor, Roya Yu. PV provided pastoral presence, prayer, hospitality, and supportive listening. Pastoral Visitor informed pt/family of the scope of [employer] and availability. CHINMAY THURMAN Harness Worker Spiritual Care Department O: [phone] Pager: [phone] ([phone] number calling from)
--- NOTE | 2018-05-18 15:20 | NUR ---
Nutrition Screen Note RD Recommendation for Physician: -Advance to GI soft diet as medically appropriate Plan of Care: RD following, monitoring for tolerance and adequacy Nutrition reason for involvement: Nutrition Risk Trigger MST Primary Diagnose(s): abdominal pain PMH: no H&P in chart Ht: 59in Wt: 198lb BMI: 40kg/m2 IBW:95lb RD Assessment: (05/18) Chart reviewed. Labs and meds reviewed. 83yo F, who is admitted for LLQ abdominal pain. Currently on IV abx, IVF, and pain meds. CT abd/pel showed possible blood products/hematoma in rectum; patchy opacities lung bases could represent atelectasis or pneumonia. Visited pt in the room. Pt reports poor appetite with decreased food intake x 5 days due to the pain. Pain persisted but pt denied nausea or vomiting. No chewing or swallowing difficulty noted. LBM 05/14. Pt reported of UBW at ~185lbs. Currently NPO. Will continue to monitor and follow. Consult as needed. Current Diet: NPO Malnutrition Evaluation (05/18/18) The patient does not meet criteria for a specified degree of malnutrition at this time. Will re-evaluate at follow-up as appropriate. Energy intake: <50% of estimated energy requirements for >5 days Weight loss: None No fat or muscle loss noted. Diet Education Needs Assessment: Diet education not indicated. Nutrition Care Level: low Signed: Rebekah Bloom, MS, RD, LD
--- NOTE | 2018-05-18 15:24 | Consultation ---
DATE OF CONSULTATION: May 18, 2018 INFECTIOUS DISEASE CONSULTATION This is a patient of Dr. Kim, currently at [facility] in [place]. This dictation is done for Dr. Jersey Cardona of infectious disease. Ms. Gege Bueno is a pleasant, 83-year-old lady who came to the hospital with complaint of left lower quadrant abdominal pain. She has not had a bowel movement for 3 days per my discussion with the patient. C. diff came back negative. She has no nausea, vomiting, fever or chills. White blood cells were 6.32, hemoglobin 9.1, platelet count 169. Imaging suggested asymmetric thickening of the left rectus musculature, subcutaneous stranding on the left, ill-defined stranding and soft-tissue densities extending into the left paracolic gutter and perirectal region. Findings likely represent blood products/hematoma, infectious process not excluded. Also, she had patchy opacities of the lung bases which could be atelectasis versus pneumonia. The patient is asymptomatic currently. Also, on the CAT scan, it was not indicative of a distinct diverticulitis. However, there is ill-defined stranding of bladder, sigmoid colon and rectum likely related to what was described above on the CAT scan. The patient has been afebrile, and pain remains the main complaint. PAST MEDICAL HISTORY: Includes superobesity and hypertension. ALLERGIES: ALLERGIC TO CORTISONE, HYDROCODONE, CODEINE AND MORPHINE. REVIEW OF SYSTEMS: Left lower quadrant abdominal pain and no bowel movement. LABORATORY STUDIES: CBC and BMP as mentioned above. C. diff came back negative. Urine culture was sent which showed white count 0-5 with no nitrites and no leukocyte esterase. PHYSICAL EXAMINATION GENERAL: Alert and oriented in bed. VITALS: Temperature is 97.6, pulse 97, respirations 18, blood pressure 136/62 CVS: S1 and S2. CHEST: Equal expansion and clear to auscultation. No acute distress. ABDOMEN: Superobese. Left lower quadrant tenderness, mostly discomfort towards tenderness. No open wounds noted. Patient was seen with staff assistance. No opening through the cutaneous was noted through the left groin or around the rectum or buttock area. No erythema. EXTREMITIES: Bilateral lower extremity lymphedema, currently dressed with Bakari wraps. No acute distress. ASSESSMENT AND PLAN: This is an 83-year-old lady with left lower quadrant abdominal discomfort. CAT scan is as above. General surgery input is pending. Antibiotics noted. Patient currently on Levaquin and Flagyl. We will change the antibiotics to vancomycin, cefepime and Flagyl. Wait for surgical evaluation and recommendation. Case was discussed with Dr. Cardona in detail. I want to thank you for this kind consult. Dictated by TEREZA Jacinto JERSEY CARDONA MD Job#: [id number]
--- NOTE | 2018-05-18 16:58 | Consultation ---
DATE OF CONSULTATION: May 18, 2018 SURGICAL CONSULTATION REFERRING PHYSICIAN: Dr. Cristino Kim. HISTORY OF PRESENT ILLNESS: Patient is an 83-year-old female with history of rheumatoid arthritis, who says she had constipation a few days ago with straining. She had a bowel movement which she says was black and she also developed left lower quadrant abdominal pain. This persisted and she came to the emergency room where she was evaluated with a CT scan of the abdomen and pelvis, which revealed an area of inflammation in the abdominal wall which was involving the left rectus abdominis muscle as well as the left flank and paracolic gutter. The evaluation with the CT scan suggests this may be blood. The patient has not had any fever. She says her pain has persisted unchanged. She denies any nausea or vomiting, still has some constipation. PAST MEDICAL HISTORY: Significant for rheumatoid arthritis, hypertension, chronic kidney disease. She has had previous hip replacement surgery and knee replacement surgery. ALLERGIES: SHE HAS AN ALLERGY TO CODEINE, CORTISONE, HYDROCODONE AND MORPHINE. MEDICATIONS PRIOR TO ADMISSION: Aspirin, calcium, Zyrtec, clonidine, Plavix, cyclosporin for her eyes, Pepcid, gabapentin, hydralazine, Xopenex, losartan, metoprolol, pantoprazole, simvastatin, Ultracet and bumetanide. FAMILY HISTORY: Noncontributory. SOCIAL HISTORY: The patient does not smoke cigarettes or drink alcohol. REVIEW OF SYSTEMS: There has been a feeling of malaise. She has not had any fever. No weight loss. PHYSICAL EXAMINATION: GENERAL: The patient is awake and alert. VITALS: Normal. She is afebrile. Heart rate is in the 90s. HEENT: There is no scleral icterus. NECK: Has no masses. LUNGS: Equal breath sounds are clear bilaterally. CARDIAC: Regular rate and rhythm with no murmur. ABDOMEN: Soft. There is mild left flank, left abdominal tenderness. There are no signs of peritonitis. There is no mass. There was no organomegaly. EXTREMITIES: There is slight ecchymosis in the left upper thigh. There is deformity of the fingers. There is no edema. NEUROLOGIC: Grossly intact. LABORATORY DATA: White blood cell count is normal with a normal differential. Hemoglobin today is 9.1, hematocrit 23.2. Chemistries revealed bicarbonate level of 17, otherwise essentially normal. ASSESSMENT: This is an 83-year-old female with left-sided abdominal pain. This may be primarily a problem with the abdominal wall with a rectus hematoma, possibly related to straining with her on Plavix. There are no signs of an acute surgical abdomen that requires surgical intervention at this time. Plan to monitor hemoglobin and hematocrit. Clinically does not appear to be an abscess. She has not had any fever. Her white blood cell count is normal, and there is at this time no significant tenderness, no signs of peritonitis. Thank you for asking me to see Ms. Bueno. Job#: [id number] EV
[2018-05-18] MEDS: CLONIDINE HCL 0.1 MG TAB PO SCH (17:06)
[2018-05-18] MEDS: METOPROLOL TARTRATE 50 MG TAB PO SCH (17:07)
--- NOTE | 2018-05-18 19:00 | NUR ---
patient recieved awake, alert, lying quietly in bed. vss. no c/o pain noted. ivf continue to infuse without difficulty. pm assessment complete. family noted at he bedside. patient/family instructed to call for assistance when needed.
[2018-05-18] MEDS: MELATONIN 5 MG TABLET PO SCH (20:28)
[2018-05-18] MEDS: HYDRALAZINE HCL 25 MG TAB PO SCH (20:29)
[2018-05-19] VITALS (8 sets, daily range): BP systolic 129–188; BP diastolic 59–79
[2018-05-19] MEDS: CEFEPIME 1GM/NS 0.9% 50 ML 50 ML IV SCH ×2 (02:00→15:00)
[2018-05-19] MEDS: METRONIDAZOLE 500MG/NS 100ML 100 ML IV SCH ×4 (03:00→20:35)
[2018-05-19 05:50] LABS: BASOPHILS % 0.6 % (0.0-1.0); EOSINOPHILS # (AUTO) 0.2 (0.0-0.4); EOSINOPHILS % 2.5 % (0.0-6.0); HEMATOCRIT 26.3 % (34.2-44.1); HEMOGLOBIN 8.2 g/dL (12.0-16.0); LYMPHOCYTES # (AUTO) 1.5 (1.0-3.2); LYMPHOCYTES % 23.3 % (18.0-39.1); MEAN CORPUSCULAR HEMOGLOBIN 30.9 pg (28-32); MEAN CORPUSCULAR HGB CONC 31.2 g/dL (31-35); MEAN CORPUSCULAR VOLUME 99.2 fL (81-99); MONOCYTES # (AUTO) 0.9 (0.2-0.8); NEUTROPHILS # (AUTO) 3.8 (2.1-6.9); NEUTROPHILS % 58.8 % (38.7-80.0); PLATELET COUNT 146 x10e3/uL (140-360); RED BLOOD COUNT 2.65 x10e6/uL (3.6-5.1); RED CELL DISTRIBUTION WIDTH 13.3 % (11.7-14.4)
[2018-05-19] MEDS: SODIUM CHLORIDE 0.9% 1000ML 1,000 ML IV SCH (06:00)
[2018-05-19 06:09] LABS: ANION GAP 12.2 mmol/L (8-16); CALCIUM 7.7 mg/dL (8.4-10.2); CREATININE, SERUM 0.89 mg/dL (0.57-1.11); POTASSIUM 4.2 mmol/L (3.5-5.1)
--- NOTE | 2018-05-19 07:20 | NUR ---
PATIENT IN BED RESTING WITH NO RESPIRATORY DISTRESS. ASSISTED WITH DIAPER CHANGE AND REPOSITIONING. COBAN INTACT TO LOWER EXTREMITIES WITH HEEL PROTECTORS IN PLACE. BED IN LOWER POSITION, CALL LIGHT AT REACH.
[2018-05-19] MEDS: PANTOPRAZOLE SOD 40 MG TABEC PO SCH (07:30)
[2018-05-19] MEDS: FAMOTIDINE 20 MG TAB PO SCH (07:30)
[2018-05-19] MEDS: HYDRALAZINE HCL 25 MG TAB PO SCH ×3 (09:00→20:35)
[2018-05-19] MEDS: METOPROLOL TARTRATE 50 MG TAB PO SCH ×2 (09:00→17:16)
[2018-05-19] MEDS: CLONIDINE HCL 0.1 MG TAB PO SCH ×2 (09:00→17:16)
--- NOTE | 2018-05-19 12:02 | NUR ---
PATIENT ASSISTED WITH DIAPER CHANGE. ALL PERSONAL ITEMS CLOSE TO PATIENT. BED IN LOWER POSITION, CALL LIGHT AT REACH.
[2018-05-19] MEDS: VANCOMYCIN 1GM/NS 250 ML 250 ML IV SCH (13:45)
--- NOTE | 2018-05-19 14:00 | NUR ---
IN TO SEE PATIENT. ON FULL LIQUID DIET AT THIS TIME. ICE WATER PROVIDED. IN BED WITH CALL LIGHT AT REACH.
--- NOTE | 2018-05-19 14:45 | NUR ---
CASE MANAGEMENT INITIAL ASSESSMENT Internal Recruiter to bedside to discuss plan of care with patient/family. CM/SW role and care transitions discussed. Anticipated discharge plan discussed along with duration of care. CM/SW discussed patients right to make decisions in care. CM/SW work hours given. Patient lives: DAUGHTER MARCIAL [place] Admit/Transfer: ER Hospital/ER visits since last admit:NONE POA/Emergency contact: MARCIAL [place] DTR [phone] Current/Previous Home Health: [facility] PCP/Follow-up Care: DR LAMAR ROLLINS Current/Previous DME: [facility]CHAIR, WALKER, HOSPITAL BED, NEBULIZER, 3 IN 1 AND HOME OXYGEN Medications (referring to index hospitalization or the first time you were in the hospital) a. Were changes made in your medications when you were in the hospital on [date of index hospitalization]? NO Note: If no or not sure, please skip to question d b. Did you understand the changes? Yes No Explain: c. Were you able to obtain your new medications right away? Yes No n/a SNF only Explain: d. Were you able to take your medications like the doctor wanted you to? Yes No Explain: e. Did the hospital give you an accurate, easy to understand list of medications when you left? Yes No n/a SNF only Explain: Scale of 1-10 how comfortable does patient feel with disease management in outpatient settin Other Services: PROVIDER 5 HRS A DAY 7 DAYS A WEEK Employment Status: RETIRED Areas of Concerns: NONE Referral Needs: NONE Education Needs: TO BE DETERMINED IMM/MOHR given and signed (if applicable): N/A Goal for discharge:TO RETURN HOME WITH DTR MARCIAL CM/SW left business card at the bedside with contact information. Name and number was also written on the patients whiteboard. Patient verbalized understanding of discussion. CM will follow-up with ongoing discharge and transition of care needs.
[2018-05-19] MEDS: HYDROMORPHONE 2MG/ML 2 MG/ML ML IV PRN (17:10)
--- NOTE | 2018-05-19 18:29 | NUR ---
B/P IS 140/64 AT THIS TIME. DIAPER CHANGED, IN BED WITH CALL LIGHT AT REACH.
[2018-05-19] MEDS: MELATONIN 5 MG TABLET PO SCH (20:35)
[2018-05-20] VITALS (8 sets, daily range): BP systolic 137–161; BP diastolic 62–68
[2018-05-20] MEDS: VANCOMYCIN 1GM/NS 250 ML 250 ML IV SCH (00:15)
[2018-05-20] MEDS: ONDANSETRON HCL INJ 2MG/ML 2ML 2 MG/ML VIAL IV PRN (00:22)
[2018-05-20] MEDS: HYDROMORPHONE 2MG/ML 2 MG/ML ML IV PRN (00:22)
[2018-05-20] MEDS: SODIUM CHLORIDE 0.9% 1000ML 1,000 ML IV SCH ×3 (02:47→19:46)
[2018-05-20] MEDS: CEFEPIME 1GM/NS 0.9% 50 ML 50 ML IV SCH (02:47)
[2018-05-20] MEDS: METRONIDAZOLE 500MG/NS 100ML 100 ML IV SCH ×2 (04:20→08:04)
[2018-05-20 05:21] LABS: BASOPHILS % 0.4 % (0.0-1.0); EOSINOPHILS # (AUTO) 0.4 (0.0-0.4); EOSINOPHILS % 5.3 % (0.0-6.0); HEMATOCRIT 25.8 % (34.2-44.1); HEMOGLOBIN 8.5 g/dL (12.0-16.0); LYMPHOCYTES # (AUTO) 1.8 (1.0-3.2); LYMPHOCYTES % 26.6 % (18.0-39.1); MEAN CORPUSCULAR HEMOGLOBIN 32.7 pg (28-32); MEAN CORPUSCULAR HGB CONC 32.9 g/dL (31-35); MEAN CORPUSCULAR VOLUME 99.2 fL (81-99); MONOCYTES # (AUTO) 0.9 (0.2-0.8); MONOCYTES % 13.5 % (4.4-11.3); NEUTROPHILS # (AUTO) 3.6 (2.1-6.9); NEUTROPHILS % 53.5 % (38.7-80.0); PLATELET COUNT 149 x10e3/uL (140-360); RED CELL DISTRIBUTION WIDTH 13.3 % (11.7-14.4)
[2018-05-20 05:41] LABS: ANION GAP 12.4 mmol/L (8-16); BLOOD UREA NITROGEN 11 mg/dL (7-26); BUN/CREATININE RATIO 14 (6-25); CALCIUM 7.6 mg/dL (8.4-10.2); CARBON DIOXIDE 18 mmol/L (22-29); CHLORIDE 114 mmol/L (98-107); CREATININE, SERUM 0.79 mg/dL (0.57-1.11); EST GLOMERULAR FILTRATION RATE > 60 ML/MIN (60-); GLUCOSE 92 mg/dL (74-118); POTASSIUM 4.4 mmol/L (3.5-5.1); SODIUM 140 mmol/L (136-145)
[2018-05-20] MEDS: FAMOTIDINE 20 MG TAB PO SCH (07:39)
[2018-05-20] MEDS: PANTOPRAZOLE SOD 40 MG TABEC PO SCH (07:39)
[2018-05-20] MEDS: CLONIDINE HCL 0.1 MG TAB PO SCH ×2 (08:04→16:40)
[2018-05-20] MEDS: HYDRALAZINE HCL 25 MG TAB PO SCH ×3 (08:04→20:55)
[2018-05-20] MEDS: METOPROLOL TARTRATE 50 MG TAB PO SCH ×2 (08:04→16:40)
--- NOTE | 2018-05-20 12:26 | NUR ---
ROUNDS WITH I.D. TODAY CUTTING BACK ON IV ABX PROBABLE RECTUS HEMATOMA ADVANCE DIET TODAY PLAN DC HOME TOMORROW
[2018-05-20] MEDS ORDERED: CEFAZOLIN SOD 1 GM VIAL IV SCH (14:00)
[2018-05-20] MEDS ORDERED: CEFAZOLIN SOD 2 GM in SODIUM CHLORIDE 0.9% 100 ML 100 ML IV SCH (14:00)
[2018-05-20] MEDS: CEFAZOLIN SOD 2 GM/D5W 50ML 50 ML IV SCH ×2 (15:04→21:38)
[2018-05-20] MEDS: MELATONIN 5 MG TABLET PO SCH (20:55)
[2018-05-21] VITALS (8 sets, daily range): BP systolic 118–189; BP diastolic 47–83
[2018-05-21] MEDS: CEFAZOLIN SOD 2 GM/D5W 50ML 50 ML IV SCH ×3 (05:35→22:46)
[2018-05-21] MEDS: HYDRALAZINE HCL 20 MG/ML VIAL IV PRN (05:35)
[2018-05-21 06:19] LABS: BASOPHILS % 0.7 % (0.0-1.0); EOSINOPHILS # (AUTO) 0.3 (0.0-0.4); HEMATOCRIT 25.9 % (34.2-44.1); HEMOGLOBIN 8.6 g/dL (12.0-16.0); LYMPHOCYTES # (AUTO) 1.4 (1.0-3.2); MEAN CORPUSCULAR HEMOGLOBIN 31.4 pg (28-32); MEAN CORPUSCULAR HGB CONC 33.2 g/dL (31-35); MEAN CORPUSCULAR VOLUME 94.5 fL (81-99); MONOCYTES # (AUTO) 0.8 (0.2-0.8); MONOCYTES % 14.4 % (4.4-11.3); NEUTROPHILS # (AUTO) 2.9 (2.1-6.9); NEUTROPHILS % 54.2 % (38.7-80.0); PLATELET COUNT 140 x10e3/uL (140-360); RED BLOOD COUNT 2.74 x10e6/uL (3.6-5.1); RED CELL DISTRIBUTION WIDTH 13.4 % (11.7-14.4)
[2018-05-21 06:41] LABS: ANION GAP 14.4 mmol/L (8-16); BLOOD UREA NITROGEN 8 mg/dL (7-26); BUN/CREATININE RATIO 10 (6-25); CALCIUM 7.6 mg/dL (8.4-10.2); CARBON DIOXIDE 16 mmol/L (22-29); CHLORIDE 114 mmol/L (98-107); EST GLOMERULAR FILTRATION RATE > 60 ML/MIN (60-); GLUCOSE 96 mg/dL (74-118); POTASSIUM 4.4 mmol/L (3.5-5.1); SODIUM 140 mmol/L (136-145)
[2018-05-21] MEDS: PANTOPRAZOLE SOD 40 MG TABEC PO SCH (09:20)
[2018-05-21] MEDS: FAMOTIDINE 20 MG TAB PO SCH (09:20)
[2018-05-21] MEDS: LOSARTAN POTASSIUM 100 MG TAB PO SCH (09:35)
[2018-05-21] MEDS: CLONIDINE HCL 0.1 MG TAB PO SCH ×2 (09:35→16:54)
[2018-05-21] MEDS: METOPROLOL TARTRATE 50 MG TAB PO SCH ×2 (09:35→16:54)
[2018-05-21] MEDS: HYDRALAZINE HCL 25 MG TAB PO SCH ×3 (09:35→21:00)
[2018-05-21] MEDS: FERROUS SULFATE 325 MG TAB PO SCH (10:45)
--- NOTE | 2018-05-21 19:00 | NUR ---
Patient visited in room during nursing rounds. Patient alert and oriented x3. Wrap of kerlix and iftikhar bandage on both legs taken off to help with circulation. Daughter (Jocelyn) at bedside visiting. IVF running (NS @75ml/hr). BLE edema (2+). Heel support in place. Bed alarm active. Call ken within reach.
[2018-05-21] MEDS: MELATONIN 5 MG TABLET PO SCH (21:00)
[2018-05-21] MEDS: SODIUM CHLORIDE 0.9% 1000ML 1,000 ML IV SCH (21:00)
[2018-05-22] VITALS (10 sets, daily range): BP systolic 117–199; BP diastolic 64–88
[2018-05-22] MEDS: HYDRALAZINE HCL 20 MG/ML VIAL IV PRN (04:40)
[2018-05-22] MEDS: SODIUM CHLORIDE 0.9% 1000ML 1,000 ML IV SCH ×2 (04:43→20:00)
[2018-05-22] MEDS: CEFAZOLIN SOD 2 GM/D5W 50ML 50 ML IV SCH ×2 (06:10→17:07)
[2018-05-22] MEDS: FAMOTIDINE 20 MG TAB PO SCH (06:11)
[2018-05-22] MEDS: PANTOPRAZOLE SOD 40 MG TABEC PO SCH (08:49)
[2018-05-22] MEDS: HYDRALAZINE HCL 25 MG TAB PO SCH ×3 (08:49→20:38)
[2018-05-22] MEDS: FERROUS SULFATE 325 MG TAB PO SCH (08:50)
[2018-05-22] MEDS: METOPROLOL TARTRATE 50 MG TAB PO SCH ×2 (08:50→17:09)
[2018-05-22] MEDS: LOSARTAN POTASSIUM 100 MG TAB PO SCH (08:50)
[2018-05-22] MEDS: CLONIDINE HCL 0.1 MG TAB PO SCH ×2 (08:50→17:00)
--- NOTE | 2018-05-22 15:12 | Progress Note ---
DATE: SUBJECTIVE: Ms. Bueno is doing better, no new complaints. PHYSICAL EXAMINATION GENERAL: She is currently alert and oriented, does not seem to be in acute distress. VITAL SIGNS: Stable, afebrile. HEENT: She does not appear icteric. NECK: Supple. CHEST: Clear. HEART: S1 and S2. No S3, S4 or murmurs. ABDOMEN: Soft. IMPRESSION AND PLAN: Left-sided abdominal pain, rectus muscle hematoma related probably to being on Plavix. Doing better from infectious disease point of view, can switch to oral Keflex. Job#: [id number] PRABHA
[2018-05-22] MEDS: LORATADINE 10 MG TAB PO SCH (17:01)
--- NOTE | 2018-05-22 19:00 | NUR ---
Patient visited in room during nursing rounds. Patient alert and oriented x3. Patient resting in bed with HOB elevated 45 degrees. IVF running (NS @75ml/hr). BLE edema (2+). Heel support in place. Bed alarm active. Call ken within reach.
[2018-05-22] MEDS: MELATONIN 5 MG TABLET PO SCH (20:38)
[2018-05-23] VITALS (8 sets, daily range): BP systolic 115–204; BP diastolic 69–98
[2018-05-23] MEDS: CEFAZOLIN SOD 2 GM/D5W 50ML 50 ML IV SCH ×3 (01:43→17:14)
[2018-05-23] MEDS: HYDRALAZINE HCL 20 MG/ML VIAL IV PRN ×2 (06:05→15:30)
[2018-05-23] MEDS: FAMOTIDINE 20 MG TAB PO SCH (08:02)
[2018-05-23] MEDS: CLONIDINE HCL 0.1 MG TAB PO SCH ×2 (08:03→17:14)
[2018-05-23] MEDS: LOSARTAN POTASSIUM 100 MG TAB PO SCH (08:03)
[2018-05-23] MEDS: LORATADINE 10 MG TAB PO SCH (08:03)
[2018-05-23] MEDS: PANTOPRAZOLE SOD 40 MG TABEC PO SCH (08:03)
[2018-05-23] MEDS: HYDRALAZINE HCL 25 MG TAB PO SCH ×3 (08:03→21:34)
[2018-05-23] MEDS: FERROUS SULFATE 325 MG TAB PO SCH (08:04)
[2018-05-23] MEDS: ACETAMINOPHEN 325 MG TAB PO PRN (08:04)
[2018-05-23] MEDS: METOPROLOL TARTRATE 50 MG TAB PO SCH ×2 (08:04→17:14)
[2018-05-23] MEDS: SODIUM CHLORIDE 0.9% 1000ML 1,000 ML IV SCH ×2 (10:00→23:21)
--- NOTE | 2018-05-23 14:42 | Progress Note ---
DATE: SUBJECTIVE: Ms. Bueno is doing well. REVIEW OF SYSTEMS: Negative. PHYSICAL EXAMINATION GENERAL: She is currently alert and oriented, does not seem to be in acute distress. VITAL SIGNS: Stable, afebrile. HEENT: Normocephalic. NECK: Supple. CHEST: Clear bilateral. HEART: S1 and S2. No murmur. ABDOMEN: Soft. IMPRESSION AND PLAN: From infectious disease point of view, patient is stable. Discharge planning per internal medicine. Left-sided abdominal pain, rectus muscle hematoma slowly getting better. Stable from infectious disease point of view. Job#: [id number] BIB
--- NOTE | 2018-05-23 16:20 | NUR ---
Visit made by the Spiritual Care Department Pastoral Visitor, Imelda Sweet. PV provided pastoral presence, hospitality, communion, and supportive listening. Pastoral Visitor informed pt/family of the scope of Director [place] [employer] and availability. CHINMAY THURMAN Interventionist Spiritual Care Department O: [phone] Pager: [phone] ([phone] number calling from)
[2018-05-23] MEDS: MELATONIN 5 MG TABLET PO SCH (21:34)
[2018-05-24] VITALS (9 sets, daily range): BP systolic 139–178; BP diastolic 62–94
[2018-05-24] MEDS: CEFAZOLIN SOD 2 GM/D5W 50ML 50 ML IV SCH ×3 (02:12→17:35)
--- NOTE | 2018-05-24 07:00 | NUR ---
PATIENT IS ALERT AND IN STABLE CONDITION WITH NO S/S OF RESPIRATORY DISTRESS. PATIENT DENIES ANY PAIN. IV FLUIDS INFUSING. BILATERAL LOWER EXTREMITIES HAVE PITTING EDEMA +1. BED ALARM ON; DAUGHTER PRESENT IN ROOM. CALL LIGHT IS WITHIN REACH, PATIENT INSTRUCTED TO CALL FOR ASSISTANCE NEEDED.
[2018-05-24] MEDS: PANTOPRAZOLE SOD 40 MG TABEC PO SCH (08:44)
[2018-05-24] MEDS: HYDRALAZINE HCL 25 MG TAB PO SCH ×3 (08:44→21:11)
[2018-05-24] MEDS: FAMOTIDINE 20 MG TAB PO SCH (08:44)
[2018-05-24] MEDS: LORATADINE 10 MG TAB PO SCH (08:45)
[2018-05-24] MEDS: METOPROLOL TARTRATE 50 MG TAB PO SCH ×2 (08:45→17:37)
[2018-05-24] MEDS: LOSARTAN POTASSIUM 100 MG TAB PO SCH (08:45)
[2018-05-24] MEDS: FERROUS SULFATE 325 MG TAB PO SCH (08:45)
[2018-05-24] MEDS: CLONIDINE HCL 0.1 MG TAB PO SCH ×2 (08:45→17:36)
[2018-05-24] MEDS ORDERED: SODIUM CHLORIDE FLUSH 10 ML SYR INJ PRN (09:45)
[2018-05-24] MEDS ORDERED: FUROSEMIDE INJ 10 MG/ML 4 ML VIAL IV ONE ×2 (09:45→10:00)
--- NOTE | 2018-05-24 09:56 | NUR ---
DR. ROLLINS ON THE UNIT- ORDER RECEIVED FOR ONE TIME IV LASIX 40MG, TO D/C FLUIDS, AND ADD GLUCERNA BID TO PATIENT'S MEALS.
[2018-05-24] MEDS: HYDRALAZINE HCL 20 MG/ML VIAL IV PRN (12:32)
--- NOTE | 2018-05-24 19:39 | NUR ---
PATIENT IS RESTING IN BED- IN STABLE CONDITION WITH NO S/S OF RESPIRATORY DISTRESS. NO PAIN VOICED. HEEL PROTECTORS APPLIED. BED ALARM ON. CALL LIGHT IS WITHIN REACH, INSTRUCTED TO CALL FOR ASSISTANCE NEEDED. REPORT GIVEN TO ONCOMING NURSE.
[2018-05-24] MEDS: MELATONIN 5 MG TABLET PO SCH (21:11)
[2018-05-25] VITALS: BP 161/68
[2018-05-25] MEDS: CEFAZOLIN SOD 2 GM/D5W 50ML 50 ML IV SCH ×2 (02:04→09:32)
[2018-05-25 04:35] VITALS: BP 170/76
[2018-05-25 06:26] LABS: BASOPHILS % 0.9 % (0.0-1.0); EOSINOPHILS # (AUTO) 0.2 (0.0-0.4); EOSINOPHILS % 4.4 % (0.0-6.0); HEMATOCRIT 26.1 % (34.2-44.1); HEMOGLOBIN 8.9 g/dL (12.0-16.0); LYMPHOCYTES # (AUTO) 1.2 (1.0-3.2); LYMPHOCYTES % 27.9 % (18.0-39.1); MEAN CORPUSCULAR HEMOGLOBIN 32.8 pg (28-32); MEAN CORPUSCULAR HGB CONC 34.1 g/dL (31-35); MEAN CORPUSCULAR VOLUME 96.3 fL (81-99); MONOCYTES # (AUTO) 0.8 (0.2-0.8); MONOCYTES % 18.8 % (4.4-11.3); NEUTROPHILS % 47.5 % (38.7-80.0); PLATELET COUNT 149 x10e3/uL (140-360); RED BLOOD COUNT 2.71 x10e6/uL (3.6-5.1); RED CELL DISTRIBUTION WIDTH 15.1 % (11.7-14.4)
[2018-05-25 06:38] LABS: ANION GAP 13.3 mmol/L (8-16); BLOOD UREA NITROGEN 9 mg/dL (7-26); BUN/CREATININE RATIO 12 (6-25); CALCIUM 7.7 mg/dL (8.4-10.2); CARBON DIOXIDE 21 mmol/L (22-29); CHLORIDE 111 mmol/L (98-107); CREATININE, SERUM 0.78 mg/dL (0.57-1.11); EST GLOMERULAR FILTRATION RATE > 60 ML/MIN (60-); GLUCOSE 93 mg/dL (74-118); POTASSIUM 3.3 mmol/L (3.5-5.1); SODIUM 142 mmol/L (136-145)
[2018-05-25 07:49] VITALS: BP 136/66
[2018-05-25] MEDS ORDERED: LOSARTAN POTASSIUM 100 MG TAB PO SCH (09:00)
[2018-05-25] MEDS: METOPROLOL TARTRATE 50 MG TAB PO SCH (09:28)
[2018-05-25] MEDS: LORATADINE 10 MG TAB PO SCH (09:28)
[2018-05-25] MEDS: FAMOTIDINE 20 MG TAB PO SCH (09:28)
[2018-05-25] MEDS: FERROUS SULFATE 325 MG TAB PO SCH (09:28)
[2018-05-25] MEDS: HYDRALAZINE HCL 25 MG TAB PO SCH (09:28)
[2018-05-25] MEDS: PANTOPRAZOLE SOD 40 MG TABEC PO SCH (09:28)
[2018-05-25] MEDS: CLONIDINE HCL 0.1 MG TAB PO SCH (09:28)
[2018-05-25] MEDS ORDERED: POTASSIUM CHLORIDE 20 MEQ TAB CR PO STA (09:37)
[2018-05-25] MEDS ORDERED: FERROUS SULFAT325 MG PO (09:39)
[2018-05-25] MEDS ORDERED: MELATONIN5 M2 PO (09:39)
[2018-05-25 11:52] VITALS: BP 184/70
[2018-05-25] MEDS: HYDRALAZINE HCL 20 MG/ML VIAL IV PRN (12:54)
[2018-05-25 14:12] VITALS: BP 184/70
[2018-05-25 14:19] VITALS: BP 159/70
--- NOTE | 2018-05-25 15:07 | NUR ---
HOME HEALTH DISCHARGE NOTE PATIENT ADDRESS WHERE SERVICE WILL BE RECEIVED: [facility] [place] [address] PATIENT CONTACT NUMBER: [phone] NAME OF HOME HEALTH COMPANY: [employer] TELEPHONE/FAX NUMBER OF [employer]: OFF: [phone] . FAXl [phone] ADDRESS OF COMPANY: SERVICES TO RECEIVE: SN RESUMPTION ANTICIPATED DATE SERVICES WILL BEGIN: 05/26/2018 Please call the company above if you have not received a call to schedule a home visit within 24 hours of discharge.
--- NOTE | 2018-05-25 17:10 | NUR ---
PATIENT DISCHARGE HOME WITH HOME HEALTH. PATIENT OFF THE UNIT AT 1518 PER WHEELCHAIR ACCOMPANIED BY RN TO THE FRONT LOBBY. PATIENT IS IN STABLE CONDITION WITH NO S/S OF RESPIRATORY DISTRESS. NO PAIN VOICED. PATIENT'S IV REMOVED WITH TIP INTACT. DISCHARGE TEACHING, INSTRUCTIONS, AND MEDICATIONS WERE GIVEN TO THE PATIENT AND HER DAUGHTER. ALL PERSONAL ITEMS WERE TAKEN WITH THE PATIENT AND HER DAUGHTER.
== END 2018-05-25 15:37 | disposition home health service (06) | DRG 394 ==
LOC: ER 14:51 → ERHOLD 20:47 → MED/SURG3 21:35
PROVIDERS: ADMIT Internal Medicine; ATTEND Internal Medicine
DX: S36.62XA Contusion of rectum, initial encounter (principal); Z68.41 Body mass index [BMI] 40.0-44.9, adult; S39.011A Strain of muscle, fascia and tendon of abdomen, initial encounter; T45.525A Adverse effect of antithrombotic drugs, initial encounter; K57.90 Diverticulosis of intestine, part unspecified, without perforation or abscess without bleeding; D64.9 Anemia, unspecified; E66.01 Morbid (severe) obesity due to excess calories; K59.00 Constipation, unspecified; X50.0XXA Overexertion from strenuous movement or load, initial encounter
CPT/HCPCS: 36415; 74176; 80048; 80053; 80202; 81001; 82270; 85025; 87493; 96361; 99284; J0360; J0690; J0692; J1940; J1956; J2405; J3370; J7030

== ENCOUNTER 2018-07-22 17:15 | Inpatient (IN) | payer MEDICARE, OTHER ==
[~2018-07-22] VITALS: Ht 162.6 cm; Wt 76.2 kg
[~2018-07-22 17:15] MED LIST changes: +CLOPIDOGREL75 MG PO; +FERROUS SULFAT325 MG PO; +FIBER-TABS625 MG PO; +MELATONIN5 M2 PO; +RESTASIS1 EACH
--- OUTSIDE RECORDS SUMMARY | 2018-07-22 17:19 | XMS REPORT | Summary of Care ---
Author Author Mundo ALEJANDRO, Rayna Perez Unknown Address Unknown Phone Unavailable Care Team Providers Care Posting Clerk Name Role Phone ERIK N.P., JENA Unavailable Unavailable RIA Ferguson, LAMAR Unavailable Unavailable DAVID Ferguson, JAQUELIN Unavailable Unavailable RIA CAMARILLO ID, LAMAR [place] Unavailable Unavailable DAVID CAMARILLO ID, JAQUELIN Unavailable Unavailable Valentino Potter MD Unavailable Unavailable Unavailable Unavailable Functional Status Name Dates Details Functional status health issues are not documented Status: Name Dates Details Cognitive status health issues are not documented Status: Problems Name Dates Details Heart failure (428.9, I50.9) Status: Active Heel ulceration, left, with unspecified severity (707.14, L97.429) Status: Active Nausea and vomiting, intractability of vomiting not specified, unspecified vomiting type (787.01, R11.2) Status: Active Hypercholesterolemia (272.0, E78.00) Status: Active Lichen simplex chronicus (698.3, 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.0) Status: Active Constipation (564.00, K59.00) Status: Active Chronic depression (311, F32.9) Status: Active Dry eyes, bilateral (375.15, H04.123) Status: Active Carotid stenosis (433.10, I65.29) Status: Active PMR (polymyalgia rheumatica) (725, M35.3) Status: Active History of stroke (V12.54, Z86.73) Status: Active Infection of toe (686.9, L08.9) Status: Active Counseling regarding advanced directives (V65.49, Z71.89) Status: Active Chronic obstructive pulmonary disease (496, J44.9) Status: Active Encounter for coordination of complex care (V65.49, Z71.89) Status: Active Poor tolerance for ambulation (V49.89, Z78.9) Status: Active Obesity, Class III, BMI 40-49.9 (morbid obesity) (278.01, E66.01) Status: Active Advance directive discussed with patient (V65.49, Z71.89) Status: Active Encounter for Medicare annual wellness exam (V70.0, Z00.00) Status: Active Arteriosclerosis of carotid artery (433.10, I65.29) Status: Active Acid reflux (530.81, K21.9) Status: Active Rash of groin (782.1, R21) Status: Active Congestive heart failure (428.0, I50.9) Status: Active Lymphedema (457.1, I89.0) Status: Active BMI 39.0-39.9,adult (V85.39, Z68.39) Status: Active Urine incontinence (788.30, R32) Status: Active Need for pneumococcal vaccine (V03.82, Z23) Status: Active GCA (giant cell arteritis) (446.5, M31.6) Status: Active MCI (mild cognitive impairment) (331.83, G31.84) Status: Active Bradycardia (427.89, R00.1) Status: Active Heel ulcer (707.14, L97.409) Status: Active Dysuria (788.1, R30.0) Status: Active Edema (782.3, R60.9) Status: Active Glossitis (529.0, K14.0) Status: Active Vitamin D deficiency (268.9, E55.9) Status: Active Reaction, drug, adverse (E947.9, T50.905A) Status: Active COPD with acute exacerbation (491.21, J44.1) Status: Active Chronic pain (338.29, G89.29) Status: Active 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, 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 Adverse drug effect (E947.9, T50.905A) Status: Active Benign hypertensive heart and CKD, 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), w CHF (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.11, I13.0) Status: Active Olecranon bursitis (726.33, M70.20) Status: Active Immunosuppressed status (279.9, D89.9) Status: Active Rheumatoid arthritis (714.0, M06.9) Status: Active Onychomycosis of toenail (110.1, B35.1) Status: Active Asymptomatic hyperuricemia (790.6, E79.0) Status: Active Flu vaccine need (V04.81, Z23) Status: Active Essential hypertension, benign (401.1, I10) Status: Active Allergic rhinitis (477.9, J30.9) Status: Active Diverticulitis of colon (562.11, K57.32) Status: Active Acute diverticulitis (562.11, K57.92) Status: Active Candidal intertrigo (112.3, B37.2) Status: Active Anemia of chronic disease (285.29, D63.8) Status: Active Pressure injury of left foot, stage 1 (707.09, L89.891) Status: Active 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, 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) Status: Active Prerenal azotemia (790.6, R79.89) Status: Active On corticosteroid therapy (V58.65, Z79.52) Status: Active 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 (714.0, M05.771) Status: Active 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, 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) Status: Active Traumatic ulcer of right lower extremity, limited to breakdown of skin with infection (707.10, L97.911) Status: Active Right ankle pain (719.47, M25.571) Status: Active Chronic left shoulder pain (719.41, M25.512) Status: Active Encounter for monitoring denosumab therapy (V58.83, Z51.81) Status: Active Arteritis (447.6, I77.6) Status: Active Visit for monitoring Actemra therapy (V58.83, Z51.81) Status: Active Osteoporosis (733.00, M81.0) Status: Active NSIP (nonspecific interstitial pneumonia) (516.8, J84.89) Status: Active Thrombocytopenia (287.5, D69.6) Status: Active Right ankle swelling (719.07, M25.471) Status: Active Synovitis of right ankle (727.06, M65.9) Status: Active Medications Name Dates Details Metoprolol Tartrate 50 MG Oral Tablet TAKE ONE-HALF (1/2) TABLET TWICE A DAY Quantity: 90 ROLLINS M.D., LAMAR * Start : 19-Jul-2018 Active Pantoprazole Sodium 40 MG Oral Tablet Delayed Release TAKE 1 TABLET DAILY * Quantity: 90 Refills: 1 LAMAR ROLLINS M.D. * Start : 05-Apr-2018 Active Tylenol Arthritis Ext Relief 650 MG TBCR take one tablet as needed * Refills: 0 Active hydrALAZINE HCl - 50 MG Oral Tablet TAKE ONE TABLET BY MOUTH THREE TIMES A DAY * Quantity: 90 Refills: 4 LAMAR ROLLINS M.D. * Start : 20-May-2018 Active Losartan Potassium 100 MG Oral Tablet TAKE ONE-HALF (1/2) TABLET DAILY * Quantity: 45 Refills: 1 JENA VALENCIA N.P. * Start : 10-May-2018 Active Bumetanide 1 MG Oral Tablet TAKE 1 TABLET DAILY ON THURSDAY, THURSDAY, AND THURSDAY. * Quantity: 15 Refills: 1 LAMAR ROLLINS M.D. * Start : 13-Jul-2018 Active cloNIDine HCl - 0.1 MG Oral Tablet TAKE ONE TABLET BY MOUTH TWICE A DAY * Quantity: 180 Refills: 1 LAMAR ROLLINS M.D. * Start : 27-Aug-2015 Active Actemra 400 MG/20ML Intravenous Solution Infuse 800mg IV monthly for rheumatoid arthritis (pt weight ~80kg, administering max dose) * Quantity: 2 Refills: 6 JAQUELIN HERNANDEZ M.D. * Start : 01-Jun-2015 Active 20 ML Vial Prolia 60 MG/ML Subcutaneous Solution INJECT SUBCUTANEOUSLY 60 MG / 1 ML EVERY 6 MONTHS * Quantity: 1 Refills: 4 JAQUELIN HERNANDEZ M.D. * Start : 10-Jul-2015 Active Milliliter Ergocalciferol 01144 UNIT Oral Capsule TAKE 1 CAPSULE WEEKLY. * Quantity: 12 Refills: 0 JAQUELIN HERNANDEZ M.D. * Start : 11-Jul-2015 Active Simvastatin 20 MG Oral Tablet TAKE ONE TABLET BY MOUTH ONCE DAILY * Quantity: 90 Refills: 1 LAMAR ROLLINS M.D. * Start : 25-Jul-2015 Active DME [facility]QU[facility] BED [facility] * Quantity: 1 Refills: 0 LAMAR ROLLINS M.D. * Start : 28-Sep-2015 Active Famotidine 40 MG Oral Tablet TAKE ONE TABLET BY MOUTH DAILY * Quantity: 30 Refills: 5 LAMAR ROLLINS M.D. * Start : 20-May-2018 Active Gelocast Unnas Boot External USE EXTERNALLY DIRECTED * Quantity: 10 Refills: 0 JENA VALENCIA N.P. * Start : 26-Dec-2015 Active Cetirizine HCl - 10 MG Oral Tablet TAKE ONE TABLET BY MOUTH EVERY NIGHT AT BEDTIME * Quantity: 30 Refills: 2 LAMAR ROLLINS M.D. * Start : 17-Jun-2018 Active Fiber CAPS TAKE 1 CAPSULE DAILY * Refills: 0 Active Multivitamins CAPS TAKE 1 CAPSULE DAILY * Refills: 0 Active Restasis 0.05 % Ophthalmic Emulsion Instill 1 drop into both eyes daily * Refills: 0 Active Clotrimazole 10 MG Mouth/Throat Lozenge ALLOW 1 TO DISSOLVE SLOWLY IN MOUTH 5 TIMES DAILY DIRECTED. * Quantity: 70 Refills: 0 LAMAR ROLLINS M.D. Active Ferrous Sulfate 325 (65 Fe) MG Oral Tablet TAKE 1 TABLET DAILY WITH FOOD. * Quantity: 90 Refills: 1 LAMAR ROLLINS M.D. Active Melatonin 5 MG Oral Tablet TAKE 1 TABLET AT BEDTIME * Refills: 0 Active Nebulizer Air Tube/Plugs NEBULIZER TUBING AND FACE MASK * Quantity: 1 Refills: 0 LAMAR ROLLINS M.D. * Start : 28-May-2018 Active Allergies and Adverse Reactions Name Dates Details Codeine Derivatives (Allergy) Status: Active Gabapentin TABS (Allergy) Reaction: Hallucinations Status: Active HYDROcodone-Acetaminophen TABS (Allergy) Status: Active Morphine Derivatives (Allergy) Status: Active traMADol HCl TABS (Allergy) Reaction: Hallucinations Status: Active [...] Resolved Procedures Procedure Dates Details History of Knee Replacement Completed History of Hysterectomy Completed History of Elbow Arthroplasty Total Elbow Replacement Completed Immunization Name Dates Details Pneumococcal polysaccharide vaccine, 23 valent on: 19-Aug-2008 Influenza on: 06-Jan-2012 Fluzone INJ Lot #: [id number] on: 04-Mar-2013 Influenza Lot #: [id number] on: 24-Mar-2014 Fluvirin INJ Lot #: [id number] on: 29-Dec-2014 Prevnar 13 Intramuscular Suspension Lot #: [id number] on: 26-Jan-2015 PPD on: 30-Apr-2015 Fluzone INJ Lot #: [id number] on: 18-Jan-2016 PPD, tuberculin skin test; purified protein derivative solution, intradermal on: 13-Jun-2016 Pneumovax 23 25 MCG/0.5ML Injection Injectable Lot #: [id number] on: 13-Nov-2016 Fluzone High-Dose 0.5 ML Intramuscular Suspension Prefilled Syringe Lot #: [id number] on: 12-Jan-2017 Fluzone High-Dose 0.5 ML Intramuscular Suspension Prefilled Syringe Lot #: [id number] on: 23-Dec-2017 PPD, tuberculin skin test; purified protein derivative solution, intradermal on: 18-Mar-2018 Family History Name Dates Details Family history of Hypertension (V17.49) Status: Active Family history of Rheumatoid Arthritis Status: Active Family history of Coronary artery disease (414.00, I25.10) Status: Active Name Dates Details Family history of Rheumatoid Arthritis Status: Active Family history of Ischemic Stroke (V17.1) Status: Active Social History Name Dates Details - Status: Name Dates Details Former smoker Vital Signs Date Test Result Details :44 BP Systolic 142 mm[Hg] Status: Comments: Location: LUE; Position: Sitting BP Diastolic 73 mm[Hg] Status: Comments: Location: LUE; Position: Sitting Heart Rate 62 /min Status: :42 BP Systolic 160 mm[Hg] Status: Comments: Location: LUE; Position: Sitting BP Diastolic 83 mm[Hg] Status: Comments: Location: LUE; Position: Sitting Heart Rate 64 /min Status: Height 56 in Status: Weight 173 lb Status: Body Mass Index Calculated 38.79 kg/m2 Status: Body Surface Area Calculated 1.67 m2 Status: Temperature 98.1 f Status: Comments: Method: Oral Respiration Rate 16 /min Status: Results Date Description Value Details [id number] MA Bone Density DXA Dual Energy 72158 Bone Density DXA Dual Energy MA SEE NOTES Comments: BONE DENSITY ASSESSMENT: 07/13/2018CLINICAL DATA: Post menopausal. Age-Related Osteoporosis Without CurrentPathological Fracture, Encounter For Therapeutic Drug Level Monitoring, Rheumatoid Arthritis With Rheumatoid Factor Of Right Ankle And Foot WithoutOrgan Or Systems Involvement, [employer] (Current) U, Z51.8/FINDINGS:Bone density evaluation was performed 07/13/2018 on the left ultra distalradius and ulna using a Hologic unit. The BMD average for the exam is 0.318 g/cm2. The T-score is -6.30. This matches the World Health Organization'scriteria for osteoporosis and places the patient at a high risk for fracture. An additional bone density evaluation was performed 07/13/2018 on the AP L2-F3vobuwn of spine using a Hologic unit. The BMD average for the exam is 1.386 g/cm2. The T-score is 3.00. This matches the World Health Organization'scriteria for normal bone density and places the patient within normal limits offracture risk. This scan was performed on a Holo[employer] Discovery W scanner. IMPRESSION: OSTEOPOROSISPatient is at high risk for fracture. Sclerosis and scoliosis is noted in thelumbar spine which may falsely elevate results. Due to this, the forearm wasperformed. Patient consult w/primary care provider is recommended. This examwas interpreted at [id number] at [facility]. Mag Saldivar M.D. ak/penrad:07/14/2018 09:12:54 Attending Technologist(s): Shae Michelle RT(R)(M), [facility] Technologist(s): Jina Bauman RT(R)(M), [facility]--Read by: Mag Saldivar MDDictated Date/time: 07/14/18 09:12Electronically Signed by: Mag Saldivar MD 07/14/1908:12FINAL REPORT Plan of Care Name Dates Details Planned Observations Planned Goals not documented Planned Encounters Appointment; LAMAR ROLLINS M.D. On: 03-Aug-2018 14:00 Appointment; JAQUELIN HERNANDEZ M.D. On: 14-Sep-2018 14:30 Interventions Provided Medication Changes* Metoprolol Tartrate 50 MG Oral Tablet - Renew Instructions Name Dates Details Instructions not documented Encounters Appointment; VALENTINO POTTER M.D. Encounter Diagnosis: Problem not documented On: [...] Problem not documented On: 12-Jan-2017 13:15 [facility] En[facility] Diagnosis: Problem not documented On: 05-Feb-2017 14:00 Appointment; VALENTINO POTTER M.D. Encounter Diagnosis: Problem not documented On: [...] not documented On: 10-Nov-2017 11:00 Appointment; VALENTINO POTTER M.D. Encounter Diagnosis: Problem not documented On: [...] not documented On: 06-Apr-2018 14:00 Appointment; VALENTINO POTTER M.D. Encounter Diagnosis: Problem not documented On: 09-Apr-2018 14:00 Appointment; LAMAR ROLLINS M.D. Encounter Diagnosis: Problem not documented On: 17-May-2018 13:30 Appointment; LAMAR ROLILNS M.D. Encounter Diagnosis: Problem not documented On: 28-May-2018 13:15 Appointment; JAQUELIN HERNANDEZ M.D. Encounter Diagnosis: Problem not documented On: 17-Jun-2018 10:30 Appointment; LAMAR ROLLINS M.D. Encounter Diagnosis: Problem not documented On: 23-Jun-2018 14:45
--- NOTE | 2018-07-22 17:53 | NUR ---
PATIENT TO ROOM 10
[2018-07-22] MEDS ORDERED: ERGOCALCIFEROL PO (18:31)
[2018-07-22] MEDS ORDERED: MUCINEX DM ER1 EAC1 PO (18:31)
[2018-07-22] MEDS ORDERED: ACTEMRA400 MG/20 IV (18:31)
[2018-07-22] MEDS ORDERED: TYLENOL ARTHRITIS PO (18:31)
[2018-07-22] MEDS ORDERED: PROLIA60 MG/1 ML SQ (18:31)
[2018-07-22] MEDS ORDERED: MULTI-VITAMIN1 EACH PO (18:31)
[2018-07-22] MEDS ORDERED: CLOTRIMAZOLE PO (18:31)
[2018-07-22] MEDS ORDERED: ACETAMINOPHEN 325 MG TAB PO ONE (21:00)
[2018-07-22 22:10] LABS: BASOPHILS % 0.9 % (0.0-1.0); EOSINOPHILS # (AUTO) 0.2 (0.0-0.4); HEMATOCRIT 26.1 % (34.2-44.1); HEMOGLOBIN 10.9 g/dL (12.0-16.0); LYMPHOCYTES # (AUTO) 1.9 (1.0-3.2); LYMPHOCYTES % 41.9 % (18.0-39.1); MEAN CORPUSCULAR HEMOGLOBIN 41.6 pg (28-32); MEAN CORPUSCULAR HGB CONC 41.8 g/dL (31-35); MEAN CORPUSCULAR VOLUME 99.6 fL (81-99); MONOCYTES # (AUTO) 0.7 (0.2-0.8); MONOCYTES % 14.7 % (4.4-11.3); NEUTROPHILS # (AUTO) 1.7 (2.1-6.9); NEUTROPHILS % 37.1 % (38.7-80.0); PLATELET COUNT 164 x10e3/uL (140-360); RED BLOOD COUNT 2.62 x10e6/uL (3.6-5.1); RED CELL DISTRIBUTION WIDTH 12.5 % (11.7-14.4)
[2018-07-22 22:25] LABS: ALANINE AMINOTRANSFERASE 15 IU/L (0-55); ALBUMIN 3.2 g/dL (3.5-5.0); ALBUMIN/GLOBULIN RATIO 1.1 (0.8-2.0); ALKALINE PHOSPHATASE 32 IU/L (40-150); ANION GAP 11.1 mmol/L (8-16); BLOOD UREA NITROGEN 15 mg/dL (7-26); BUN/CREATININE RATIO 19 (6-25); CALCIUM 10.4 mg/dL (8.4-10.2); CARBON DIOXIDE 24 mmol/L (22-29); CHLORIDE 107 mmol/L (98-107); CREATININE, SERUM 0.78 mg/dL (0.57-1.11); EST GLOMERULAR FILTRATION RATE > 60 ML/MIN (60-); GLUCOSE 95 mg/dL (74-118); POTASSIUM 4.1 mmol/L (3.5-5.1); SODIUM 138 mmol/L (136-145)
[2018-07-22 23:30] VITALS: BP_SYST 180
[2018-07-22 23:33] LABS: CLARITY,URINE HAZY (CLEAR); COLOR,URINE YELLOW (YELLOW)
[2018-07-22 23:34] LABS: BILIRUBIN,URINE NEGATIVE (NEGATIVE); KETONES,URINE NEGATIVE (NEGATIVE); LEUKOCYTE ESTERASE ,URINE NEGATIVE (NEGATIVE); NITRITE,URINE POSITIVE (NEGATIVE); PROTEIN,URINE DIPSTICK NEGATIVE (NEGATIVE); URINE UROBILINOGEN 0.2 mg/dL (0.2 - 1)
[2018-07-22 23:35] LABS: BACTERIA,URINE MANY /HPF; EPITHELIAL CELLS,URINE FEW /LPF; RBC,URINE 0-5 /HPF (0-5)
[2018-07-22] MEDS ORDERED: HYDRALAZINE HCL 20 MG/ML VIAL IV PRN (23:45)
--- OUTSIDE RECORDS SUMMARY | 2018-07-22 23:55 | XMS REPORT | Summary of Care ---
Author Author Wendi Muñoz M.A. Organization Unknown Address [facility] Phone Unavailable Care Team Providers Care Stacking Machine Operator Name Role Phone JENA VALENCIA N.P. Unavailable Unavailable RIA Ferguson, LAMAR Unavailable Unavailable DAVID Ferguson, JAQUELIN Unavailable Unavailable RIA CAMARILLO [place], LAMAR [place] Unavailable Unavailable DAVID CAMARILLO [place], JAQUELIN Unavailable Unavailable Abbey CAMARILLO, Valentino Unavailable Unavailable Unavailable Unavailable Functional [...] of right ankle (715.27, M19.271) Status: Active Constipation (564.00, K59.00) Status: Active [...] Onychomycosis of toenail (110.1, B35.1) Status: Active Heel ulcer (707.14, L97.409) Status: Active Heel ulceration, left, with unspecified severity (707.14, L97.429) Status: Active Counseling regarding advanced directives (V65.49, Z71.89) Status: Active Candidal intertrigo (112.3, B37.2) Status: Active Acute diverticulitis (562.11, K57.92) Status: Active Immunosuppressed status (279.9, D89.9) Status: Active COPD with acute exacerbation (491.21, J44.1) Status: Active Encounter for monitoring denosumab therapy (V58.83, Z51.81) Status: Active 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 (714.0, M05.771) Status: Active Visit for monitoring Actemra therapy (V58.83, Z51.81) Status: Active Osteoporosis (733.00, M81.0) Status: Active Essential hypertension, benign (401.1, I10) Status: Active Rheumatoid arthritis (714.0, M06.9) Status: Active Pressure injury of left foot, stage 1 (707.09, L89.891) Status: Active Anemia of chronic disease (285.29, D63.8) Status: Active Insomnia (780.52, G47.00) Status: Active Cellulitis of right lower extremity (682.6, L03.115) Status: Active Medications Name Dates Details Metoprolol Tartrate 50 MG Oral Tablet TAKE ONE-HALF (1/2) TABLET TWICE A DAY Quantity: 90 LAMAR ROLLINS M.D. * Start : 19-Jul-2018 Active Pantoprazole Sodium [...] * Start : 10-Jul-2015 Active Milliliter Ergocalciferol 56048 UNIT Oral Capsule TAKE 1 CAPSULE WEEKLY. [...] ROLLINS M.D. * Start : 17-Jun-2018 Active Multivitamins CAPS TAKE 1 CAPSULE DAILY [...] ROLLINS M.D. * Start : 28-May-2018 Active Mucinex DM TB12 TAKE 1 TO 2 TABLETS EVERY 12 HOURS NEEDED. * Refills: 0 Active Ipratropium-Albuterol 0.5-2.5 (3) MG/3ML Inhalation Solution ADMINISTER ONE 3 ML VIAL TWICE DAILY VIA NEBULIZATION. * Quantity: 1 Refills: 3 Active 30 x 3 ML Plas Cont Allergies and Adverse Reactions Name Dates Details [...] Influenza on: 06-Jan-2012 Fluzone INJ Lot #: [id number] on: 04-Mar-2013 Influenza Lot #: [id number] on: 24-Mar-2014 Fluvirin INJ Lot #: [id number] on: 29-Dec-2014 Prevnar 13 Intramuscular Suspension Lot #: [id number] on: 26-Jan-2015 PPD on: 30-Apr-2015 Fluzone INJ Lot #: [id number] on: 18-Jan-2016 PPD, tuberculin skin test; purified protein derivative solution, intradermal on: 13-Jun-2016 Pneumovax 23 25 MCG/0.5ML Injection Injectable Lot #: [id number] on: 13-Nov-2016 Fluzone High-Dose 0.5 ML Intramuscular Suspension Prefilled Syringe Lot #: [id number] on: 12-Jan-2017 Fluzone High-Dose 0.5 ML Intramuscular Suspension Prefilled Syringe Lot #: [id number] on: 23-Dec-2017 PPD, tuberculin skin test; purified [...] smoker Vital Signs Date Test Result Details :18 BP Systolic 204 mm[Hg] Status: Comments: [place] [facility] [place] Position: Sitting BP Diastolic 82 mm[Hg] Status: Comments: [place] [facility] [place] Position: Sitting Heart Rate 71 /min Status: :17 BP Systolic 217 mm[Hg] Status: Comments: [place] [facility] [place] Position: Sitting BP Diastolic 73 mm[Hg] Status: Comments: Location: LUE; Position: Sitting Heart Rate 67 /min Status: Height 56 in Status: Weight 176 lb Status: Body Mass Index Calculated 39.46 kg/m2 Status: Body Surface Area Calculated 1.68 m2 Status: Temperature 97.7 f Status: Comments: Method: Oral Respiration Rate 16 /min Status: O2 SAT 96 % Status: Comments: Source: :44 BP Systolic 142 mm[Hg] Status: Comments: Location: E; Position: Sitting BP Diastolic 73 mm[Hg] Status: Comments: [place] [facility] [place] Position: Sitting Heart Rate 62 /min Status: [...] /min Status: Results Date Description Value Details [id number] MA Bone Density DXA Dual Energy 74823 Bone Density DXA Dual Energy MA SEE NOTES Comments: BONE DENSITY ASSESSMENT: 07/13/2018CLINICAL DATA: Post menopausal. Age-Related Osteoporosis Without CurrentPathological Fracture, Encounter For Therapeutic Drug Level Monitoring, Rheumatoid Arthritis With Rheumatoid Factor Of Right Ankle And Foot WithoutOrgan Or Systems Involvement, Gold [employer]er (Current) U, Z51.8/FINDINGS:Bone density evaluation was performed 07/13/2018 on the left ultra distalradius and ulna using a Hologic unit. The BMD average for the exam is 0.318 g/cm2. The T-score is -6.30. This matches the World Health Organization'scriteria for osteoporosis and places the patient at a high risk for fracture. An additional bone density evaluation was performed 07/13/2018 on the AP L2-T3zhibgn of spine using a Hologic unit. The BMD average for the exam is 1.386 g/cm2. The T-score is 3.00. This matches the World Health Organization'scriteria for normal bone density and places the patient within normal limits offracture risk. This scan was performed on a [employer] Discovery W scanner. IMPRESSION: OSTEOPOROSISPatient is at high risk for fracture. Sclerosis and scoliosis is noted in thelumbar spine which may falsely elevate results. Due to this, the forearm wasperformed. Patient consult w/primary care provider is recommended. This examwas interpreted at [id number] at [facility]. Mag saldana/milady:07/14/2018 09:12:54 Attending Technologist(s): Shae Michelle RT(R)(M), [facility] Technologist(s): Jina Bauman RT(R)(M), [facility]--Read by: Mag Saldivar MDDictated Date/time: 07/14/18 09:12Electronically Signed by: Mag Saldivar MD 07/14/1908:12FINAL REPORT Plan of Care Name Dates Details Planned Observations Planned Goals not documented Planned Encounters Appointment; LAMAR ROLLINS M.D. On: 03-Aug-2018 14:00 Appointment; JAQUELIN HERNANDEZ M.D. On: 14-Sep-2018 14:30 Interventions Provided Medications/Immunizations Administered* cloNIDine HCl - 0.1 MG Oral Tablet Plan* To patient's [facility] for admission. Instructions Name Dates Details Instructions not documented Encounters Appointment; VALENTINO BAEZ M.D. Encounter Diagnosis: Problem [...] Problem not documented On: 12-Jan-2017 13:15 Appointment; [facility] Encounter Diagnosis: Problem not documented On: 05-Feb-2017 [...] not documented On: 05-Jun-2017 13:30 Appointment; JAQUELIN HERANNDEZ M.D. Encounter Diagnosis: Problem not documented On: [...] not documented On: 17-May-2018 13:30 Appointment; LAMAR ROLLINS M.D. Encounter Diagnosis: Problem not documented On: 28-May-2018 13:15 Appointment; JAQUELIN HERNANDEZ M.D. Encounter Diagnosis: Problem not documented On: 17-Jun-2018 10:30 Appointment; LAMAR ROLLINS M.D. Encounter Diagnosis: Problem not documented On: 23-Jun-2018 14:45 Appointment; LAMAR ROLLINS M.D. Encounter Diagnosis: Problem not documented On: 22-Jul-2018 14:15
--- NOTE | 2018-07-22 23:57 | NUR ---
Received report from ER nurse. Patient into room 284.
[2018-07-23] VITALS (8 sets, daily range): BP systolic 121–203; BP diastolic 56–88
[2018-07-23] MEDS: PIPER-TAZ 3.375 GM 50 ML IV SCH ×4 (01:12→18:21)
--- NOTE | 2018-07-23 06:11 | NUR ---
Patient resting quitly at this time, Continue monitor.
--- NOTE | 2018-07-23 06:13 | NUR ---
Patient resting quitly at this time, Continue monitor. Addendum: 07/23/18 at 0615 by Bhargavi Lovell RN duplicate.
--- NOTE | 2018-07-23 07:20 | NUR ---
PATIENT IN BED RESTING WITH EYES CLOSED, NO RESPIRATORY DISTRESS OBSERVED. REDNESS AND SWELLING TO RIGHT FOOT. BED IN LOWER POSITION, CALL LIGHT AT REACH.
[2018-07-23 08:12] LABS: BASOPHILS % 0.9 % (0.0-1.0); EOSINOPHILS # (AUTO) 0.2 (0.0-0.4); EOSINOPHILS % 3.9 % (0.0-6.0); HEMOGLOBIN 11.6 g/dL (12.0-16.0); LYMPHOCYTES # (AUTO) 1.9 (1.0-3.2); LYMPHOCYTES % 42.9 % (18.0-39.1); MEAN CORPUSCULAR HEMOGLOBIN 36.3 pg (28-32); MEAN CORPUSCULAR HGB CONC 37.4 g/dL (31-35); MEAN CORPUSCULAR VOLUME 96.9 fL (81-99); MONOCYTES # (AUTO) 0.5 (0.2-0.8); MONOCYTES % 12.3 % (4.4-11.3); NEUTROPHILS # (AUTO) 1.7 (2.1-6.9); NEUTROPHILS % 39.8 % (38.7-80.0); PLATELET COUNT 167 x10e3/uL (140-360); RED CELL DISTRIBUTION WIDTH 12.2 % (11.7-14.4)
[2018-07-23 08:33] LABS: ALANINE AMINOTRANSFERASE 21 IU/L (0-55); ALBUMIN 3.3 g/dL (3.5-5.0); ALBUMIN/GLOBULIN RATIO 1.2 (0.8-2.0); ALKALINE PHOSPHATASE 28 IU/L (40-150); BLOOD UREA NITROGEN 13 mg/dL (7-26); BUN/CREATININE RATIO 16 (6-25); CALCIUM 9.5 mg/dL (8.4-10.2); CARBON DIOXIDE 23 mmol/L (22-29); CHLORIDE 110 mmol/L (98-107); CREATININE, SERUM 0.83 mg/dL (0.57-1.11); EST GLOMERULAR FILTRATION RATE > 60 ML/MIN (60-); GLUCOSE 97 mg/dL (74-118); SODIUM 141 mmol/L (136-145)
[2018-07-23] MEDS ORDERED: SODIUM CHLORIDE 0.9% 250ML 250 ML ONE (09:51)
[2018-07-23] MEDS: LEVALBUTEROL HCL SOLN NEBU 0.63 MG/3 ML NEB INH SCH ×3 (10:00→19:30)
[2018-07-23] MEDS: VANCOMYCIN 1GM/NS 250 ML 250 ML IV SCH (10:01)
[2018-07-23] MEDS: HYDRALAZINE HCL 25 MG TAB PO SCH ×3 (10:01→20:41)
[2018-07-23] MEDS: CLONIDINE HCL 0.1 MG TAB PO SCH ×2 (10:01→17:21)
[2018-07-23] MEDS: LORATADINE 10 MG TAB PO SCH (10:02)
[2018-07-23] MEDS: METOPROLOL TARTRATE 50 MG TAB PO SCH ×2 (10:02→17:21)
[2018-07-23] MEDS: LOSARTAN POTASSIUM 100 MG TAB PO SCH (10:02)
[2018-07-23] MEDS: FUROSEMIDE 40 MG TAB PO SCH (10:02)
[2018-07-23] MEDS: FERROUS SULFATE 325 MG TAB PO SCH (10:02)
[2018-07-23] MEDS: FAMOTIDINE 20 MG TAB PO SCH (10:03)
[2018-07-23] MEDS ORDERED: ACETAMINOPHEN 325 MG TAB PO SCH (10:30)
--- NOTE | 2018-07-23 11:29 | NUR ---
PATIENT ASSISTED WITH DIAPER CHANGE, IN BED RESTING WITH NO S/S DISCOMFORT. CALL LIGHT AT REACH.
[2018-07-23] MEDS: PANTOPRAZOLE SOD 40 MG TABEC PO SCH (12:00)
--- NOTE | 2018-07-23 16:34 | NUR ---
PATIENT RESTING WITH NO S/S OF DISCOMFORT.
--- NOTE | 2018-07-23 20:04 | NUR ---
PATIENT RESTING IN THE BED, ROUNDS DONE WITH AM NURSE, NO DISTRESS NOTED. CALL LIGHT IN REACH. WILL CONTINUE TO MONITOR.
[2018-07-23] MEDS: MELATONIN 5 MG TABLET PO SCH (20:41)
[2018-07-24] MEDS: PIPER-TAZ 3.375 GM 50 ML IV SCH ×4 (00:04→18:03)
[2018-07-24] MEDS: LEVALBUTEROL HCL SOLN NEBU 0.63 MG/3 ML NEB INH SCH ×4 (00:15→19:05)
[2018-07-24 01:51] VITALS: BP 145/74
[2018-07-24 05:00] VITALS: BP 163/74
[2018-07-24] MEDS: ACETAMINOPHEN 325 MG TAB PO PRN (05:50)
[2018-07-24] MEDS: HYDRALAZINE HCL 25 MG TAB PO SCH ×3 (05:51→21:00)
--- NOTE | 2018-07-24 06:17 | Diagnostic Imaging Report ---
Examination: Single AP view of the chest. COMPARISON: February 05, 2019 INDICATION: Cellulitis DISCUSSION: Lines/tubes: None. Lungs: Low lung volume on the right. No focal pneumonia. Pleura: There is no pleural effusion or pneumothorax. Heart and mediastinum: The heart and the mediastinum are unremarkable. Bones and soft tissues: No acute bony abnormalities. IMPRESSION: 1. No consolidative pneumonia. Signed by: Dr. Parish Rudolph M.D. on 07/24/2018 6:14 AM
--- NOTE | 2018-07-24 07:12 | NUR ---
PATIENT IN BED RESTING WITH NO S/S OF DISTRESS, DENIED PAIN. BED IN LOWER POSITION, CALL LIGHT AT REACH.
--- NOTE | 2018-07-24 07:15 | NUR ---
REPORT GIVEN TO AM NURSE, ROUNDS DONE.
[2018-07-24] MEDS: PANTOPRAZOLE SOD 40 MG TABEC PO SCH (07:59)
[2018-07-24] MEDS: FAMOTIDINE 20 MG TAB PO SCH (07:59)
[2018-07-24 08:00] VITALS: BP 144/63
[2018-07-24] MEDS ORDERED: NON-FORMULARY MEDICATION (Cetirizine Hcl 10 MG) SCH (09:00)
[2018-07-24] MEDS: TYLENOL ARTHRITIS PO SCH (09:00)
[2018-07-24] MEDS: VANCOMYCIN 1GM/NS 250 ML 250 ML IV SCH (09:36)
[2018-07-24] MEDS: LORATADINE 10 MG TAB PO SCH (09:37)
[2018-07-24] MEDS: FUROSEMIDE 40 MG TAB PO SCH (09:37)
[2018-07-24] MEDS: LOSARTAN POTASSIUM 100 MG TAB PO SCH (09:37)
[2018-07-24] MEDS: FERROUS SULFATE 325 MG TAB PO SCH (09:37)
[2018-07-24] MEDS: METOPROLOL TARTRATE 50 MG TAB PO SCH ×2 (09:37→17:26)
[2018-07-24] MEDS: CLONIDINE HCL 0.1 MG TAB PO SCH ×2 (09:37→17:26)
[2018-07-24] MEDS: POLYETHYLENE GLYCOL 3350 17 GM PACK PO SCH (09:37)
[2018-07-24] MEDS: MULTIVITAMINS/MINERALS TAB PO SCH (09:38)
--- NOTE | 2018-07-24 11:31 | NUR ---
MD IN TO SEE PATIENT, NEW ORDERS RECEIVED.
--- NOTE | 2018-07-24 12:10 | NUR ---
SOCIAL WORK INITIAL ASSESSMENT Inventory Control Specialist to bedside to discuss plan of care with patient/family. CM/SW role and care transitions discussed. Anticipated discharge plan discussed along with duration of care. CM/SW discussed patients right to make decisions in care. CM/SW work hours given. Patient lives: IN HOUSE WITH DAUGHTER AND FAMILY Admit/Transfer: VIA ED POA/Emergency contact: DAUGHTER MARCIAL [phone] OR [phone] OR JANEY [phone] Current/Previous Home Health: NONE PCP/Follow-up Care: RIA Current/Previous DME: MALATHI Other Services: NONE Employment Status: RETIRED Areas of Concerns: NONE Referral Needs: NONE Education Needs: NONE IMM/MOHR given and signed (if applicable): Goal for discharge: RETURN HOME CM/SW left business card at the bedside with contact information. Name and number was also written on the patients whiteboard. Patient verbalized understanding of discussion. CM will follow-up with ongoing discharge and transition of care needs.
[2018-07-24 12:30] VITALS: BP 136/63
--- NOTE | 2018-07-24 16:10 | NUR ---
PATIENT ASSISTED WITH DIAPER CHANGE, HAD LA MODERATE BM. REPOSITIONED IN BED, CALL LIGHT AT REACH, FAMILY AT BED SIDE.
[2018-07-24 16:18] VITALS: BP 116/51
[2018-07-24 19:25] VITALS: BP 155/67
[2018-07-25] VITALS (8 sets, daily range): BP systolic 124–154; BP diastolic 6–68
[2018-07-25] MEDS: MELATONIN 5 MG TABLET PO SCH ×2 (00:02→20:15)
[2018-07-25] MEDS: LEVALBUTEROL HCL SOLN NEBU 0.63 MG/3 ML NEB INH SCH ×4 (00:20→20:15)
--- NOTE | 2018-07-25 04:44 | NUR ---
Patient laying in bed with HOB slightly elevated. AAO x 4. No sob noted. No acute distress noted. Patient reports of no pain at this time. Patient in stable condition at this time and will continue to monitor.
[2018-07-25] MEDS: PIPER-TAZ 3.375 GM 50 ML IV SCH ×4 (05:59→18:01)
--- NOTE | 2018-07-25 07:05 | NUR ---
PATIENT REPOSITIONED IN BED BY 2 STAFFS, DIAPER CHECKED. REDNESS AND SWELLING DECREASING TO RIGHT FOOT. DENIED PAIN AT THIS TIME. BED IN LOWER POSITION, CALL LIGHT AT REACH.
[2018-07-25] MEDS: FAMOTIDINE 20 MG TAB PO SCH (07:52)
[2018-07-25] MEDS: PANTOPRAZOLE SOD 40 MG TABEC PO SCH (07:52)
[2018-07-25] MEDS: TYLENOL ARTHRITIS PO SCH (09:00)
[2018-07-25] MEDS: CLONIDINE HCL 0.1 MG TAB PO SCH ×2 (09:20→17:43)
[2018-07-25] MEDS: LORATADINE 10 MG TAB PO SCH (09:20)
[2018-07-25] MEDS: VANCOMYCIN 1GM/NS 250 ML 250 ML IV SCH (09:20)
[2018-07-25] MEDS: HYDRALAZINE HCL 25 MG TAB PO SCH ×3 (09:20→20:14)
[2018-07-25] MEDS: POLYETHYLENE GLYCOL 3350 17 GM PACK PO SCH (09:21)
[2018-07-25] MEDS: MULTIVITAMINS/MINERALS TAB PO SCH (09:21)
[2018-07-25] MEDS: LOSARTAN POTASSIUM 100 MG TAB PO SCH (09:21)
[2018-07-25] MEDS: FERROUS SULFATE 325 MG TAB PO SCH (09:21)
[2018-07-25] MEDS: FUROSEMIDE 40 MG TAB PO SCH (09:21)
[2018-07-25] MEDS: METOPROLOL TARTRATE 50 MG TAB PO SCH ×2 (09:21→17:44)
--- NOTE | 2018-07-25 14:19 | NUR ---
PATIENT ASSISTED WITH DIAPER CHANGE. HAD 2 LARGE BM. IN BED TALKING TO FAMILY MEMBER VISITING. CALL LIGHT AT REACH.
--- NOTE | 2018-07-25 16:45 | NUR ---
Visit made by the Spiritual Care Department Pastoral Visitor, Elia Woodruff. PV provided pastoral presence, prayer, hospitality, communion, and supportive listening. Pastoral Visitor informed pt/family of the scope of [employer] and availability. CHINMAY THURMAN Director [facility] Spiritual Care Department O: [phone] Pager: [phone] ([phone] number calling from)
--- NOTE | 2018-07-25 19:16 | NUR ---
PT IS RESTING IN BED. NO RESPIRATORY DISTRESS NOTED. BED IN THE LOWEST POSITION, LOCKED, BED ALARM ON, AND CALL LIGHT WITHIN REACH. WILL CONTINUE TO MONITOR.
[2018-07-26] VITALS (7 sets, daily range): BP systolic 129–155; BP diastolic 52–65
[2018-07-26] MEDS: PIPER-TAZ 3.375 GM 50 ML IV SCH ×4 (00:19→18:32)
[2018-07-26] MEDS: LEVALBUTEROL HCL SOLN NEBU 0.63 MG/3 ML NEB INH SCH ×4 (01:10→20:00)
--- NOTE | 2018-07-26 07:30 | NUR ---
REC'D PT AAOX3, PT NOT EXPERIENCING S/S OF DISTRESS, PT REPOSITIONED IN BED, CHANGED PT BRIEF, SIDE RAILS UP X2, BED IN LOWEST POSITION.
[2018-07-26] MEDS: POLYETHYLENE GLYCOL 3350 17 GM PACK PO SCH (08:11)
[2018-07-26] MEDS: FAMOTIDINE 20 MG TAB PO SCH (08:12)
[2018-07-26] MEDS: PANTOPRAZOLE SOD 40 MG TABEC PO SCH (08:13)
[2018-07-26] MEDS: HYDRALAZINE HCL 25 MG TAB PO SCH ×3 (08:15→21:03)
[2018-07-26] MEDS: CLONIDINE HCL 0.1 MG TAB PO SCH ×2 (08:15→18:32)
[2018-07-26] MEDS: FERROUS SULFATE 325 MG TAB PO SCH (08:16)
[2018-07-26] MEDS: LORATADINE 10 MG TAB PO SCH (08:16)
[2018-07-26] MEDS: LOSARTAN POTASSIUM 100 MG TAB PO SCH (08:16)
[2018-07-26] MEDS: FUROSEMIDE 40 MG TAB PO SCH (08:17)
[2018-07-26] MEDS: MULTIVITAMINS/MINERALS TAB PO SCH (08:18)
[2018-07-26] MEDS: METOPROLOL TARTRATE 50 MG TAB PO SCH ×2 (08:18→18:32)
[2018-07-26] MEDS: TYLENOL ARTHRITIS PO SCH (09:00)
[2018-07-26] MEDS: VANCOMYCIN 1GM/NS 250 ML 250 ML IV SCH (10:00)
--- NOTE | 2018-07-26 11:20 | NUR ---
PT. IN SEMI-FOWLERS POSITION, RESTING QUIETLY WITH EYES OPENED, AND NO S/S OF DISTRESS. BED IN LOWEST POSITION, SIDE RAILS UP X2, AND CALL LIGHT WITHIN REACH.
--- NOTE | 2018-07-26 11:45 | NUR ---
PT O2 SAT AT 92% RA. APPLIED 2L/MIN OF O2 VIA NC WITH HUMIDIFIER PER OXYGEN PROTOCOL.
--- NOTE | 2018-07-26 18:53 | NUR ---
PATIENT RELAXING CALMLY IN BED WITH EYES OPENED. NO S/S OF DISTRESS.
--- NOTE | 2018-07-26 19:00 | NUR ---
BS rounds completed with morning nurse. Pt alert to name. Lying in bed HOB 30 degrees. c/o 5/10 pain right leg. Call ken within reach. Bed low and locked. Will continue to monitor.
[2018-07-26] MEDS: MELATONIN 5 MG TABLET PO SCH (21:03)
[2018-07-27] VITALS (8 sets, daily range): BP systolic 115–142; BP diastolic 53–69
[2018-07-27] MEDS: PIPER-TAZ 3.375 GM 50 ML IV SCH ×5 (00:22→23:39)
[2018-07-27] MEDS: LEVALBUTEROL HCL SOLN NEBU 0.63 MG/3 ML NEB INH SCH ×4 (01:00→19:15)
[2018-07-27 05:35] LABS: BASOPHILS # (AUTO) 0.1 (0.0-0.1); BASOPHILS % 1.3 % (0.0-1.0); EOSINOPHILS # (AUTO) 0.4 (0.0-0.4); EOSINOPHILS % 6.9 % (0.0-6.0); HEMATOCRIT 36.7 % (34.2-44.1); HEMOGLOBIN 11.8 g/dL (12.0-16.0); LYMPHOCYTES # (AUTO) 1.2 (1.0-3.2); LYMPHOCYTES % 22.4 % (18.0-39.1); MEAN CORPUSCULAR HEMOGLOBIN 31.3 pg (28-32); MEAN CORPUSCULAR HGB CONC 32.2 g/dL (31-35); MEAN CORPUSCULAR VOLUME 97.3 fL (81-99); MONOCYTES % 17.3 % (4.4-11.3); NEUTROPHILS # (AUTO) 2.8 (2.1-6.9); NEUTROPHILS % 51.9 % (38.7-80.0); PLATELET COUNT 185 x10e3/uL (140-360); RED BLOOD COUNT 3.77 x10e6/uL (3.6-5.1); RED CELL DISTRIBUTION WIDTH 12.7 % (11.7-14.4)
[2018-07-27 05:50] LABS: ANION GAP 9.3 mmol/L (8-16); CALCIUM 8.8 mg/dL (8.4-10.2); CREATININE, SERUM 1.13 mg/dL (0.57-1.11); POTASSIUM 3.3 mmol/L (3.5-5.1)
--- NOTE | 2018-07-27 07:30 | NUR ---
RECEIVED PT AAOX3, DAUGHTER AT BEDSIDE, NO S/S OF DISTRESS NOTED, SIDE RAILS UP X2, BED IN LOWEST POSITION, AND CALL LIGHT WITHIN REACH.
[2018-07-27] MEDS: FAMOTIDINE 20 MG TAB PO SCH (08:24)
[2018-07-27] MEDS: PANTOPRAZOLE SOD 40 MG TABEC PO SCH (08:24)
[2018-07-27] MEDS: FUROSEMIDE 40 MG TAB PO SCH (08:24)
[2018-07-27] MEDS: LORATADINE 10 MG TAB PO SCH (08:25)
[2018-07-27] MEDS: FERROUS SULFATE 325 MG TAB PO SCH (08:25)
[2018-07-27] MEDS: POLYETHYLENE GLYCOL 3350 17 GM PACK PO SCH (08:26)
[2018-07-27] MEDS: MULTIVITAMINS/MINERALS TAB PO SCH (08:26)
[2018-07-27] MEDS: HYDRALAZINE HCL 25 MG TAB PO SCH ×3 (08:26→21:13)
[2018-07-27] MEDS: CLONIDINE HCL 0.1 MG TAB PO SCH ×2 (08:27→18:21)
[2018-07-27] MEDS: LOSARTAN POTASSIUM 100 MG TAB PO SCH (08:27)
[2018-07-27] MEDS: METOPROLOL TARTRATE 50 MG TAB PO SCH ×2 (08:28→18:22)
[2018-07-27] MEDS: ACETAMINOPHEN 325 MG TAB PO PRN (08:30)
[2018-07-27] MEDS: TYLENOL ARTHRITIS PO SCH (09:00)
[2018-07-27] MEDS ORDERED: SODIUM CHLORIDE 0.9% 250ML 250 ML ONE (09:35)
[2018-07-27] MEDS: VANCOMYCIN 750MG/NS 150ML IVPB 150 ML IV SCH (10:48)
--- NOTE | 2018-07-27 11:25 | NUR ---
PT RESTING QUIETLY WITH EYES CLOSED. NO S/S OF DISTRESS. SIDE RAILS UP X2, BED IN LOWEST POSITION, AND CALL LIGHT WITHIN REACH.
--- NOTE | 2018-07-27 13:45 | NUR ---
PT RESTING QUIETLY WATCHING TV. BED IN LOWEST POSITION, SIDE RAILS UP X2, CALL LIGHT WITHIN REACH.
--- NOTE | 2018-07-27 15:50 | NUR ---
PT SLEEPING RESTFULLY WITH EYES CLOSED. PATIENT SHOWS NO S/S OF DISTRESS. BED AT LOWEST POSITION, SIDE RAILS UP X2, AND CALL LIGHT WITHIN REACH.
--- NOTE | 2018-07-27 18:25 | NUR ---
PATIENT AWAKE AND ALERT. NO S/S OF DISTRESS. BED IN LOWEST POSITION, SIDE RAILS UP X2, AND CALL LIGHT WITHIN REACH.
--- NOTE | 2018-07-27 19:14 | NUR ---
WALKING ROUNDS PERFORMED, RECEIVED PT LAYING SEMI FOWLERS IN BED, AAOX3, RR EVEN AND NON-LABORED, O2 BY NC AT 2L. NO S/SX OF DISTRESS NOTED. LEFT PT LAYING SEMI FOWLERS IN BED, BED IN LOW LOCKED POSITION, SIDE RAILS UPX2, CALL LIGHT AND PHONE WITHIN REACH.
[2018-07-27] MEDS: MELATONIN 5 MG TABLET PO SCH (21:13)
[2018-07-28] VITALS: BP 123/60
[2018-07-28 04:00] VITALS: BP 123/56
[2018-07-28 06:13] LABS: ANION GAP 12.3 mmol/L (8-16); CALCIUM 8.9 mg/dL (8.4-10.2); CREATININE, SERUM 1.02 mg/dL (0.57-1.11); POTASSIUM 3.3 mmol/L (3.5-5.1)
[2018-07-28] MEDS: PIPER-TAZ 3.375 GM 50 ML IV SCH (06:31)
[2018-07-28] MEDS: LEVALBUTEROL HCL SOLN NEBU 0.63 MG/3 ML NEB INH SCH ×3 (07:00→12:30)
--- NOTE | 2018-07-28 07:17 | NUR ---
PATIENT IN BED RESTING WITH NO RESPIRATORY DISTRESS. C/O COLD, WARM BLANKET PROVIDED. BED IN LOWER POSITION, CALL LIGHT AT REACH.
[2018-07-28 07:20] VITALS: BP 154/68
[2018-07-28] MEDS: PANTOPRAZOLE SOD 40 MG TABEC PO SCH (07:45)
[2018-07-28] MEDS: FAMOTIDINE 20 MG TAB PO SCH (07:45)
[2018-07-28] MEDS: ACETAMINOPHEN 325 MG TAB PO PRN (08:05)
[2018-07-28 08:41] VITALS: BP 154/68
[2018-07-28] MEDS: TYLENOL ARTHRITIS PO SCH (09:00)
[2018-07-28] MEDS: POLYETHYLENE GLYCOL 3350 17 GM PACK PO SCH (09:00)
[2018-07-28] MEDS: VANCOMYCIN 750MG/NS 150ML IVPB 150 ML IV SCH (09:00)
[2018-07-28] MEDS: HYDRALAZINE HCL 25 MG TAB PO SCH (09:23)
[2018-07-28] MEDS: CLONIDINE HCL 0.1 MG TAB PO SCH (09:24)
[2018-07-28] MEDS: LORATADINE 10 MG TAB PO SCH (09:24)
[2018-07-28] MEDS: LOSARTAN POTASSIUM 100 MG TAB PO SCH (09:24)
[2018-07-28] MEDS: FERROUS SULFATE 325 MG TAB PO SCH (09:24)
[2018-07-28] MEDS: FUROSEMIDE 40 MG TAB PO SCH (09:25)
[2018-07-28] MEDS: MULTIVITAMINS/MINERALS TAB PO SCH (09:25)
[2018-07-28] MEDS: METOPROLOL TARTRATE 50 MG TAB PO SCH (09:25)
[2018-07-28] MEDS: POTASSIUM CHLORIDE 20 MEQ TAB CR PO SCH ×2 (09:25→11:02)
--- NOTE | 2018-07-28 09:34 | NUR ---
SPOKE WITH MD REGARDING ABNORMAL LAB, NEW ORDER RECEIVED.
[2018-07-28] MEDS ORDERED: POTASSIUM CHLORIDE 10MEQ EA PO ONE (09:45)
[2018-07-28] MEDS ORDERED: POTASSIUM CHLORIDE 10MEQ EA PO NR (11:00)
[2018-07-28] MEDS ORDERED: AUGMENTIN 500-1 EACH PO (11:06)
[2018-07-28 11:55] VITALS: BP 122/76
--- NOTE | 2018-07-28 13:10 | NUR ---
PATIENT DISCHARGED HOME. DISCHARGE INSTRUCTIONS, PRESCRIPTION, AND FOLLOW UP GIVEN TO PATIENT AND DAUGHTER, THEY VERBALIZED UNDERSTANDING. IV TO LEFT HAND REMOVED WITH TIP INTACT. ALL PERSONAL ITEMS TAKEN WITH PATIENT. LEFT UNIT PER WHEEL CHAIR TO FRONT LOBBY IN STABLE CONDITION.
--- NOTE | 2018-07-29 04:28 | Discharge Summary ---
DISCHARGE DIAGNOSES: 1. Cellulitis, right lower extremity, improving. 2. Hypokalemia, now corrected. 3. Hypertension, controlled. 4. Rheumatoid arthritis, on chronic immunosuppressants. HOSPITAL COURSE: Ms. Bueno is a pleasant 83-year-old lady well known to me, who presented to the office with complaints of right leg pain, induration, and increase in erythema that has been going on for about 3 to 4 days. The patient had no fever or chills, but she looked ill and was having generalized malaise. According to the patient, she had a recent wound care procedure for a heel elevation. The symptoms are occurring on a significant backdrop of lymphedema. The patient is on chronic immunosuppression therapy for her rheumatoid arthritis. She was admitted to the hospital. She was started on a combination of vancomycin and Zosyn. Blood cultures were negative. The white cell count remained within normal range and she had no significant evidence of systemic involvement. With the combination of antibiotics, her signs of cellulitis began to improve with a decreased erythema and induration and with bedrest. She had almost complete resolution of the peripheral edema. She is being discharged home in stable condition. She is to continue 12 days of Augmentin 500 mg twice a day and she is to follow up in the office on 08/03/2018. MD CATHY Shine/KD /[id number]
== END 2018-07-28 13:28 | disposition home or self-care (01) | DRG 603 ==
LOC: ER 17:15 → ERHOLD 23:52 → MED/SURG3 07-23 00:41
PROVIDERS: ADMIT Internal Medicine; ATTEND Internal Medicine
DX: L03.115 Cellulitis of right lower limb (principal); N30.00 Acute cystitis without hematuria; I13.0 Hypertensive heart and chronic kidney disease with heart failure and stage 1 through stage 4 chronic kidney disease, or unspecified chronic kidney disease; I50.22 Chronic systolic (congestive) heart failure; Z74.01 Bed confinement status; I25.10 Atherosclerotic heart disease of native coronary artery without angina pectoris; J44.9 Chronic obstructive pulmonary disease, unspecified; E78.5 Hyperlipidemia, unspecified; Z86.73 Personal history of transient ischemic attack (TIA), and cerebral infarction without residual deficits; K21.9 Gastro-esophageal reflux disease without esophagitis; I89.0 Lymphedema, not elsewhere classified; Z88.5 Allergy status to narcotic agent; Z88.8 Allergy status to other drugs, medicaments and biological substances; M06.9 Rheumatoid arthritis, unspecified; Z79.899 Other long term (current) drug therapy; N18.3 Chronic kidney disease, stage 3 (moderate); I27.20 Pulmonary hypertension, unspecified; E87.6 Hypokalemia
CPT/HCPCS: 36415; 71045; 80048; 80053; 80202; 81001; 83605; 85025; 85651; 86140; 87040; 93005; 93306; 93971; 94640; 99284; J2543; J3370; J7050

== ENCOUNTER 2018-08-25 16:48 | Inpatient (IN) | payer MEDICARE, OTHER ==
[~2018-08-25] VITALS: Ht 162.6 cm; Wt 76.7 kg
[2018-08-25 15:10] VITALS: BP 171/84
[~2018-08-25 16:48] MED LIST changes: +ACTEMRA400 MG/20 IV; +AUGMENTIN 500-1 EACH PO; +CLOTRIMAZOLE PO; +ERGOCALCIFEROL PO; +MUCINEX DM ER1 EAC1 PO; +MULTI-VITAMIN1 EACH PO; +PROLIA60 MG/1 ML SQ; +TYLENOL ARTHRITIS PO
--- OUTSIDE RECORDS SUMMARY | 2018-08-25 16:52 | XMS REPORT | Summary of Care ---
Author Author Mundo ALEJANDRO, Rayna [facility] Unknown Address Unknown Phone Unavailable Care Team Providers Care Show Horse Driver Name Role Phone ERIK Turner, JENA Unavailable Unavailable RIA Ferguson, LAMAR Unavailable Unavailable DAVID Ferguson, JAQUELIN Unavailable Unavailable RIA CAMARILLO [place], LAMAR [place] Unavailable Unavailable DAVID CAMARILLO [place], JAQUELIN Unavailable Unavailable Valentino Potter MD Unavailable [...] of cerebrovascular disease (438.9, 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 Vitamin D deficiency (268.9, E55.9) Status: Active Onychomycosis of toenail (110.1, B35.1) Status: Active Heel ulcer (707.14, L97.409) Status: Active Heel ulceration, left, with unspecified severity (707.14, L97.429) Status: Active Candidal intertrigo (112.3, B37.2) Status: Active Counseling regarding advanced directives (V65.49, Z71.89) Status: Active Acute diverticulitis (562.11, K57.92) Status: Active Immunosuppressed status (279.9, D89.9) Status: Active COPD with acute exacerbation (491.21, J44.1) Status: Active Encounter for monitoring denosumab therapy (V58.83, Z51.81) Status: Active 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 (714.0, M05.771) Status: Active Visit for monitoring Actemra therapy (V58.83, Z51.81) Status: Active Osteoporosis (733.00, M81.0) Status: Active Pressure injury of left foot, stage 1 (707.09, L89.891) Status: Active Insomnia (780.52, G47.00) Status: Active Cellulitis of right lower extremity (682.6, L03.115) Status: Active Anemia of chronic disease (285.29, D63.8) Status: Active Benign hypertensive heart and CKD, 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 * Start : 25-Aug-2018 Active cloNIDine HCl - 0.1 MG Oral Tablet TAKE ONE TABLET BY MOUTH TWICE A DAY * Quantity: 180 Refills: 1 LAMAR ROLLINS M.D. * Start : 27-Aug-2015 Active Actemra 400 MG/20ML Intravenous Solution Infuse 800mg IV monthly for rheumatoid arthritis (pt weight ~80kg, administering max dose) * Quantity: 2 Refills: 6 JAMALYARIA Matthew.Toby, MIRAOK * Start : 01-Jun-2015 Active 20 ML Vial Prolia 60 MG/ML Subcutaneous Solution INJECT SUBCUTANEOUSLY 60 MG / 1 ML EVERY 6 MONTHS * Quantity: 1 Refills: 4 JAMALYARIA Matthew.Toby, FAROKH * Start : 10-Jul-2015 Active Milliliter Ergocalciferol 09534 UNIT Oral Capsule TAKE 1 CAPSULE WEEKLY. * Quantity: 12 Refills: 0 MAGGIEARIA JAQUELIN Ferguson * Start : 11-Jul-2015 Active Simvastatin 20 [...] Z87.440) Status: Resolved Procedures Procedure Dates Details [QLH] CBC (INCLUDES DIFF/PLT) Date: 12-Aug-2018 [QLH] SED RATE BY MODIFIED WESTERGREN Date: 12-Aug-2018 History of Hysterectomy Completed History of Knee Replacement Completed History of Elbow Arthroplasty Total Elbow Replacement Completed Immunization Name Dates Details Pneumococcal polysaccharide vaccine, 23 valent on: 19-Aug-2008 Influenza on: 06-Jan-2012 Fluzone INJ Lot #: [id number] on: 04-Mar-2013 Influenza Lot #: [id number] on: 24-Mar-2014 Fluvirin INJ Lot #: [id number] on: 29-Dec-2014 Prevnar 13 Intramuscular Suspension Lot #: [id number] on: 26-Jan-2015 PPD on: 30-Apr-2015 Fluzone INJ Lot #: [id number] on: 18-Jan-2016 PPD, tuberculin skin test; purified protein derivative solution, intradermal on: 13-Jun-2016 Pneumovax 23 25 MCG/0.5ML Injection Injectable Lot #: [id number] on: 13-Nov-2016 Fluzone High-Dose 0.5 ML Intramuscular Suspension Prefilled Syringe Lot #: [id number] on: 12-Jan-2017 Fluzone High-Dose 0.5 ML Intramuscular Suspension Prefilled Syringe Lot #: [id number] on: 23-Dec-2017 PPD, tuberculin skin test; purified [...] smoker Vital Signs Date Test Result Details :20 BP Systolic 133 mm[Hg] Status: Comments: Location: LUE; Position: Sitting BP Diastolic 73 mm[Hg] Status: Comments: Location: LUE; Position: Sitting Height 56 in Status: Weight 168 lb Status: Body Mass Index Calculated 37.67 kg/m2 Status: Body Surface Area Calculated 1.65 m2 Status: Temperature 98.1 f Status: Comments: Method: Oral Heart Rate 77 /min Status: Respiration Rate 16 /min Status: :10 BP Systolic 145 mm[Hg] Status: Comments: Location: LUE; Position: Sitting BP Diastolic 69 mm[Hg] Status: Comments: Location: LUE; Position: Sitting Heart Rate 76 /min Status: [id number]-Sii-[id number]:01 BP Systolic 149 mm[Hg] Status: Comments: Location: LUE; Position: Sitting BP Diastolic 75 mm[Hg] Status: Comments: Location: LUE; Position: Sitting Height 56 in Status: Weight 168.9 lb Status: Body Mass Index Calculated 37.87 kg/m2 Status: Body Surface Area Calculated 1.65 m2 Status: Temperature 98.2 f Status: Comments: Method: Oral Heart Rate 67 /min Status: Respiration Rate 16 /min Status: Results Date Description Value Details :58 [QLH] CBC (INCLUDES DIFF/PLT) WHITE BLOOD CELL COUNT 8.4 {Thousand/u} (Normal) Range: 3.8-10.8 RED BLOOD CELL COUNT 4.27 {Million/uL} (Normal) Range: 3.80-5.10 HEMAGLOBIN 13.5 g/dl (Normal) Range: 11.7-15.5 HEMATOCRIT 40.2 % (Normal) Range: 35.0-45.0 MCV 94.1 fL (Normal) Range: 80.0-100.0 MCH 31.6 pg (Normal) Range: 27.0-33.0 MCHC 33.6 g/dl (Normal) Range: 32.0-36.0 Comments: Specimen was prewarmed to 37 degreesto obtain results.Cold agglutinin/cryoglobulin suspected.Specimen was prewarmed to 37 degreesto obtain results.Cold agglutinin/cryoglobulin suspected. RDW 12.7 % (Normal) Range: 11.0-15.0 PLATELET COUNT 183 {Thousand/u} (Normal) Range: 140-400 MPV 12.4 fL (Normal) Range: 7.5-12.5 ABSOLUTE NEUTROPHILS 4528 {cells/uL} (Normal) Range: 2582-0310 ABSOLUTE LYMPHOCYTES 2503 {cells/uL} (Normal) Range: 850-3900 ABSOLUTE MONOCYTES 1016 {cells/uL} (Above high threshold) Range: 200-950 ABSOLUTE EOSINOPHILS 269 {cells/uL} (Normal) Range: 15-500 ABSOLUTE BASOPHILS 84 {cells/uL} (Normal) Range: 0-200 NEUTROPHILS 53.9 % (Normal) LYMPHOCYTES 29.8 % (Normal) MONOCYTES 12.1 % (Normal) EOSINOPHILS 3.2 % (Normal) BASOPHILS 1.0 % (Normal) :58 [QLH] SED RATE BY MODIFIED WESTERGREN SED RATE BY MODIFIED WESTERGREN 19 mm/h (Normal) Range: < OR=30 [id number] [QL] C-REACTIVE PROTEIN Comments: REPORT COMMENT:FASTING:NO C-REACTIVE PROTEIN 1.8 mg/L (Normal) Range: <8.0 Plan of Care Name Dates Details Planned Observations Planned Goals not documented Planned Encounters Appointment; JAQUELIN HERNANDEZ M.D. On: 14-Sep-2018 14:30 Appointment; LAMAR ROLLINS M.D. On: 21-Sep-2018 11:00 Interventions Provided Medication Changes* Bumetanide 1 MG Oral Tablet - Renew Instructions Name Dates Details Instructions not documented Encounters Appointment; LAMAR ROLLINS M.D. Encounter Diagnosis: Problem not documented On: 26-Aug-2016 15:00 Appointment; LAMAR ROLLINS M.D. Encounter Diagnosis: Problem not documented On: 05-Sep-2016 15:00 Appointment; LAMAR ROLLINS M.D. Encounter Diagnosis: Problem not documented On: 30-Sep-2016 13:30 Appointment; KENZIE ORNELAS P.A. Encounter Diagnosis: Problem not documented On: 14-Oct-2016 9:00 Appointment; LAMRA ROLLINS M.D. Encounter Diagnosis: Problem not documented [...] Problem not documented On: 12-Jan-2017 13:15 [facility] En[facility] Diagnosis: Problem not documented On: 05-Feb-2017 [...] Diagnosis: Problem not documented On: 22-Jul-2018 14:15 Appointment; LAMAR ROLLINS M.D. Encounter Diagnosis: Problem not documented On: 03-Aug-2018 14:00 Appointment; LAMAR ROLLINS M.D. Encounter Diagnosis: Problem not documented On: 12-Aug-2018 13:15
--- NOTE | 2018-08-25 17:48 | NUR ---
Received patient as direct admit, a/ox3, ambulates with assist and no resp distress, BLE with +3 edema, patient will be started on Vancomycin ordered, IV line established to left AC, daughters in the room and will monitor, call light within reach
[2018-08-25] MEDS ORDERED: VANCOMYCIN 750MG/NS 150ML IVPB 150 ML IV SCH ×2 (18:00→21:00)
[2018-08-25 18:17] VITALS: BP 150/88
[2018-08-25] MEDS ORDERED: PIPER-TAZ 3.375 GM 50 ML IV SCH (18:30)
[2018-08-25] MEDS ORDERED: IPRATROPIU0.2 MG/1 M NEB (19:24)
[2018-08-25] MEDS ORDERED: PROLIA60 MG/1 ML SC (19:24)
[2018-08-25] MEDS ORDERED: MELATONIN3 MG PO (19:24)
--- NOTE | 2018-08-25 19:24 | NUR ---
Home medication entered in computer and reviewed
[2018-08-25 19:30] LABS: BASOPHILS # (AUTO) 0.1 (0.0-0.1); BASOPHILS % 0.6 % (0.0-1.0); EOSINOPHILS # (AUTO) 0.5 (0.0-0.4); EOSINOPHILS % 5.6 % (0.0-6.0); HEMATOCRIT 36.2 % (34.2-44.1); HEMOGLOBIN 11.9 g/dL (12.0-16.0); LYMPHOCYTES # (AUTO) 2.7 (1.0-3.2); LYMPHOCYTES % 30.6 % (18.0-39.1); MEAN CORPUSCULAR HEMOGLOBIN 30.9 pg (28-32); MEAN CORPUSCULAR HGB CONC 32.9 g/dL (31-35); MONOCYTES % 11.3 % (4.4-11.3); NEUTROPHILS # (AUTO) 4.6 (2.1-6.9); NEUTROPHILS % 51.7 % (38.7-80.0); PLATELET COUNT 191 x10e3/uL (140-360); RED BLOOD COUNT 3.85 x10e6/uL (3.6-5.1); RED CELL DISTRIBUTION WIDTH 12.3 % (11.7-14.4)
[2018-08-25 19:33] LABS: ALBUMIN 3.5 g/dL (3.5-5.0); ANION GAP 14.7 mmol/L (8-16); CALCIUM 10.8 mg/dL (8.4-10.2); CREATININE, SERUM 1.14 mg/dL (0.57-1.11); POTASSIUM 4.7 mmol/L (3.5-5.1)
[2018-08-25] MEDS: SODIUM CHLORIDE 0.9% 1000ML 1,000 ML IV SCH (20:00)
[2018-08-25 20:11] VITALS: BP 146/70
[2018-08-25] MEDS: VANCOMYCIN 750MG/NS 150ML IVPB 150 ML IV SCH (20:50)
[2018-08-25 20:57] VITALS: BP 146/70
[2018-08-25 22:18] LABS: BILIRUBIN,URINE NEGATIVE (NEGATIVE); CLARITY,URINE CLEAR (CLEAR); COLOR,URINE COLORLESS (YELLOW); KETONES,URINE NEGATIVE (NEGATIVE); LEUKOCYTE ESTERASE ,URINE 1+ (NEGATIVE); NITRITE,URINE POSITIVE (NEGATIVE); PROTEIN,URINE DIPSTICK NEGATIVE (NEGATIVE); URINE UROBILINOGEN 0.2 mg/dL (0.2 - 1)
[2018-08-25 22:40] LABS: BACTERIA,URINE FEW /HPF; EPITHELIAL CELLS,URINE FEW /LPF; RBC,URINE 0-5 /HPF (0-5)
[2018-08-26 00:08] VITALS: BP 169/73
[2018-08-26] MEDS: PIPER-TAZ 3.375 GM 50 ML IV SCH ×3 (04:21→20:15)
[2018-08-26 05:58] VITALS: BP 175/79
--- NOTE | 2018-08-26 08:25 | NUR ---
Patient with elevated BP and call to Dr. Kim for orders to resume home medications and waiting for call back
[2018-08-26 09:24] VITALS: BP 176/77
[2018-08-26] MEDS ORDERED: ACETAMINOPHEN 325 MG TAB PO PRN (09:45)
[2018-08-26] MEDS: METOPROLOL TARTRATE 25 MG TAB PO SCH ×2 (10:00→17:26)
[2018-08-26] MEDS: TERBINAFINE 30 GM CR TP SCH (10:00)
[2018-08-26] MEDS ORDERED: PSYLLIUM 6GM PACKET PO PRN (10:00)
[2018-08-26] MEDS: LORATADINE 10 MG TAB PO SCH (10:18)
[2018-08-26] MEDS: BUMETANIDE 1 MG TAB PO SCH (10:30)
--- NOTE | 2018-08-26 10:54 | NUR ---
Rounds by attending and renewed home medications, notified of constipation and orders in place and executed. Call to wound care and notified of consult and PT orders in place to eval.
--- NOTE | 2018-08-26 12:34 | NUR ---
WOUND CARE CONSULTATION- INITIAL EVALUATION Patient admitted for cellulitis of BLE. LABS: WBC8.94 HGB11.9 HCT36.2 NEUT%51.7 WC Consulted for BLE Redness Evaluation and Recommendation PATIENT VISIT: Tre Score 11 Moderate PUP Protocol Active Pleasant 83 year old female. Calm Cooperative and in good spirits. Alternating Pressure Air Mattress in place and set to patient current weight Presents with BLE redness with edema. No open skin identified. Dry Scaly Skin noted. Edema +3 Pitting. Denies pain or discomfort. States she feels better today compared to when she admitted. On IV ABX IMPRESSION: BLE Cellulitis without ulceration. Dry Scaly Skin. RECOMMENDATION: 1. BLE Dry Scaly Skin - Wash BLE with Mild Soap and Water then Towel Dry. - Apply Lac-Hydrin Lotion / AmLactin lotion Daily. Thank you for consulting with Wound Care. Addendum: 08/26/18 at 1256 by Larry Diego RN Amended: Links added. Addendum: 08/26/18 at 1257 by Larry Diego RN ADDITIONAL RECOMMENDATIONS: 2. Strict PUP Protocol 3. Bilateral Heel Protectors / Offload Heels with pillows while in bed. 4. Turn and repostion patient every 2 hours using turning schedule clock using wedges/ pillow support. 5. Continue Alternating Pressure Air Mattress
[2018-08-26 12:51] VITALS: BP 147/99
--- NOTE | 2018-08-26 14:22 | NUR ---
Patient alert and responsive, OOB to commode and has has 2 soft/liquid stools after administration of miralax. Will monitor.
[2018-08-26] MEDS: HYDRALAZINE HCL 25 MG TAB PO SCH ×2 (15:34→20:57)
[2018-08-26] MEDS: POLYETHYLENE GLYCOL 3350 17 GM PACK PO SCH (15:38)
[2018-08-26] MEDS: SODIUM CHLORIDE 0.9% 1000ML 1,000 ML IV SCH (15:38)
[2018-08-26 16:12] VITALS: BP 165/70
[2018-08-26] MEDS ORDERED: METOPROLOL TARTRATE 50 MG TAB PO SCH (17:00)
[2018-08-26] MEDS: CLONIDINE HCL 0.1 MG TAB PO SCH (17:26)
[2018-08-26 20:00] VITALS: BP 166/73
[2018-08-26] MEDS: VANCOMYCIN 750MG/NS 150ML IVPB 150 ML IV SCH (20:57)
[2018-08-26] MEDS: MELATONIN 5 MG TABLET PO SCH (20:57)
[2018-08-26] MEDS: SIMVASTATIN 20 MG TAB PO SCH (20:58)
[2018-08-26] MEDS ORDERED: MELATONIN 3 MG TAB PO SCH (21:00)
[2018-08-27] VITALS (8 sets, daily range): BP systolic 125–178; BP diastolic 60–81
[2018-08-27] MEDS: PIPER-TAZ 3.375 GM 50 ML IV SCH ×3 (04:00→19:50)
--- NOTE | 2018-08-27 07:02 | NUR ---
Received patient mid fowlers position, side rails upx2, call light within reach. Resting with eyes closed. Arousable to verbal stimuli. Respirations even and unlabored. Will continue to monitor.
[2018-08-27] MEDS: BUMETANIDE 1 MG TAB PO SCH (08:33)
[2018-08-27] MEDS: HYDRALAZINE HCL 25 MG TAB PO SCH ×3 (08:33→20:10)
[2018-08-27] MEDS: CLONIDINE HCL 0.1 MG TAB PO SCH ×2 (08:33→16:00)
[2018-08-27] MEDS: LORATADINE 10 MG TAB PO SCH (08:33)
[2018-08-27] MEDS: AMMONIUM LACTATE 12% LOTION 225GM BTL TOP SCH (08:34)
[2018-08-27] MEDS: FERROUS SULFATE 325 MG TAB PO SCH (08:34)
[2018-08-27] MEDS: TERBINAFINE 30 GM CR TP SCH (08:34)
[2018-08-27] MEDS: PANTOPRAZOLE SOD 40 MG TABEC PO SCH (08:34)
[2018-08-27] MEDS: POLYETHYLENE GLYCOL 3350 17 GM PACK PO SCH ×2 (08:34→16:18)
[2018-08-27] MEDS: MULTIVITAMINS/MINERALS TAB PO SCH (08:34)
[2018-08-27] MEDS: LOSARTAN POTASSIUM 100 MG TAB PO SCH (08:34)
[2018-08-27] MEDS: FAMOTIDINE 20 MG TAB PO SCH (08:34)
[2018-08-27] MEDS: METOPROLOL TARTRATE 25 MG TAB PO SCH ×2 (08:34→16:00)
[2018-08-27] MEDS ORDERED: BUMETANIDE 1 MG PO SCH (09:00)
[2018-08-27] MEDS ORDERED: NON-FORMULARY MEDICATION (Cetirizine Hcl 10 MG) SCH (09:00)
[2018-08-27] MEDS: SODIUM CHLORIDE 0.9% 1000ML 1,000 ML IV SCH (10:15)
[2018-08-27] MEDS: VANCOMYCIN 750MG/NS 150ML IVPB 150 ML IV SCH ×2 (10:25→21:45)
--- NOTE | 2018-08-27 12:00 | NUR ---
aware of low grade fever.
--- NOTE | 2018-08-27 13:00 | NUR ---
Visit made by the Spiritual Care Department Pastoral Visitor, Oracio Alicea. PV provided pastoral presence, hospitality, and supportive listening. Pastoral Visitor informed pt/family of the scope of [employer] and availability. CHINMAY THURMAN Set Designer Spiritual Care Department O: [phone] Pager: [phone] ([phone] number calling from)
--- NOTE | 2018-08-27 19:00 | NUR ---
RECEIVED BEDSIDE SHIFT REPORT FROM ANKITA SALAZAR. BECCAOX 4. BED ALARM IS ON. PATIENT IS SITTING ON THE CHAIR WITH RELATIVE NEXT TO HER. CALL LIGHT WITHIN REACH. PT DENIES NEEDS AT THIS TIME
--- NOTE | 2018-08-27 19:17 | NUR ---
Report given to oncoming nurse of patient's status. NO s/s of acute distress noted.
[2018-08-27] MEDS: SIMVASTATIN 20 MG TAB PO SCH (20:10)
--- NOTE | 2018-08-27 21:46 | NUR ---
LAB REPORTED VANCO TROUGH AT 13.[address] ROLLINS REGARDING THE RESULT AND WILL HOLD THE THE CURRENT DOSE AND GIVE THE NEXT DOSE IN THE MORNING SCHEDULED.
[2018-08-27] MEDS: MELATONIN 5 MG TABLET PO SCH (22:20)
[2018-08-28] VITALS (8 sets, daily range): BP systolic 134–174; BP diastolic 62–83
[2018-08-28] MEDS: SODIUM CHLORIDE 0.9% 1000ML 1,000 ML IV SCH (04:23)
[2018-08-28] MEDS: PIPER-TAZ 3.375 GM 50 ML IV SCH ×3 (04:23→20:24)
--- NOTE | 2018-08-28 05:08 | NUR ---
During assessment, the patient was breathing with CTA. Now patient is wheezing bilaterally. RN called RT to provide neb treatment to help patient with breathing. Monitor patient's airway/breathing.
[2018-08-28 05:47] LABS: ANION GAP 11.5 mmol/L (8-16); CALCIUM 8.8 mg/dL (8.4-10.2); CREATININE, SERUM 0.89 mg/dL (0.57-1.11); POTASSIUM 3.5 mmol/L (3.5-5.1)
[2018-08-28 06:09] LABS: BASOPHILS % 0.3 % (0.0-1.0); EOSINOPHILS # (AUTO) 0.4 (0.0-0.4); EOSINOPHILS % 5.2 % (0.0-6.0); HEMATOCRIT 33.2 % (34.2-44.1); HEMOGLOBIN 10.7 g/dL (12.0-16.0); LYMPHOCYTES # (AUTO) 0.9 (1.0-3.2); LYMPHOCYTES % 12.6 % (18.0-39.1); MEAN CORPUSCULAR HEMOGLOBIN 30.5 pg (28-32); MEAN CORPUSCULAR HGB CONC 32.2 g/dL (31-35); MEAN CORPUSCULAR VOLUME 94.6 fL (81-99); MONOCYTES # (AUTO) 0.8 (0.2-0.8); MONOCYTES % 10.9 % (4.4-11.3); NEUTROPHILS # (AUTO) 4.9 (2.1-6.9); NEUTROPHILS % 70.7 % (38.7-80.0); PLATELET COUNT 187 x10e3/uL (140-360); RED BLOOD COUNT 3.51 x10e6/uL (3.6-5.1); RED CELL DISTRIBUTION WIDTH 12.4 % (11.7-14.4)
--- NOTE | 2018-08-28 07:15 | NUR ---
PT AWAKE RESP EVEN AND UNLABORED, NO C/O PAIN WHEN ASKED, PT ABLE TO MAKE NEEDS KNOWN, CALL LIGHT IN REACH.
[2018-08-28] MEDS: BUMETANIDE 1 MG TAB PO SCH (09:10)
[2018-08-28] MEDS: HYDRALAZINE HCL 25 MG TAB PO SCH ×3 (09:10→20:24)
[2018-08-28] MEDS: POLYETHYLENE GLYCOL 3350 17 GM PACK PO SCH ×2 (09:11→16:44)
[2018-08-28] MEDS: FAMOTIDINE 20 MG TAB PO SCH (09:11)
[2018-08-28] MEDS: FERROUS SULFATE 325 MG TAB PO SCH (09:11)
[2018-08-28] MEDS: PANTOPRAZOLE SOD 40 MG TABEC PO SCH (09:11)
[2018-08-28] MEDS: MULTIVITAMINS/MINERALS TAB PO SCH (09:11)
[2018-08-28] MEDS: LOSARTAN POTASSIUM 100 MG TAB PO SCH (09:11)
[2018-08-28] MEDS: CLONIDINE HCL 0.1 MG TAB PO SCH ×2 (09:11→16:44)
[2018-08-28] MEDS: LORATADINE 10 MG TAB PO SCH (09:11)
[2018-08-28] MEDS: METOPROLOL TARTRATE 25 MG TAB PO SCH ×2 (09:11→16:44)
[2018-08-28] MEDS: VANCOMYCIN 750MG/NS 150ML IVPB 150 ML IV SCH ×2 (10:00→22:01)
[2018-08-28] MEDS: IPRATROPIUM BROMIDE 0.02% 2.5 ML NEB NEB PRN ×2 (11:56→19:40)
[2018-08-28] MEDS ORDERED: ACETAMINOPHEN 325 MG TAB PO PRN (13:15)
[2018-08-28] MEDS ORDERED: DIPHENHYDRAMINE HCL 25 MG CAP PO PRN (13:15)
[2018-08-28] MEDS ORDERED: KETOROLAC TROMETHAMINE 10 MG TAB PO PRN (13:15)
[2018-08-28] MEDS ORDERED: MAGNESIUM HYDROXIDE 30 ML UDC PO PRN (13:15)
[2018-08-28] MEDS: AMMONIUM LACTATE 12% LOTION 225GM BTL TOP SCH (16:44)
[2018-08-28] MEDS: TERBINAFINE 30 GM CR TP SCH (16:44)
--- NOTE | 2018-08-28 19:05 | NUR ---
WALKING ROUNDS PERFORMED, RECEIVED PT LAYING SEMI FOWLERS IN BED, AAOX3, RR EVEN AND NON-LABORED, O2 BY NC AT 2L. NO S/SX OF DISTRESS NOTED. LEFT PT LAYING SEMI FOWLERS IN BED, BED IN LOW LOCKED POSITION, SIDE RAILS UPX2, CALL LIGHT AND PHONE WITHIN REACH. ALTERNATING PRESSURE PUMP ATTACHED TO AIR MATTRESS.
--- NOTE | 2018-08-28 19:08 | NUR ---
report given to oncoming nurse, for continued care.
[2018-08-28] MEDS: MELATONIN 5 MG TABLET PO SCH (20:24)
[2018-08-28] MEDS: SIMVASTATIN 20 MG TAB PO SCH (20:24)
[2018-08-29] VITALS (8 sets, daily range): BP systolic 122–182; BP diastolic 65–97
[2018-08-29] MEDS: SODIUM CHLORIDE 0.9% 1000ML 1,000 ML IV SCH ×2 (01:58→23:36)
[2018-08-29] MEDS: PIPER-TAZ 3.375 GM 50 ML IV SCH ×3 (04:40→20:54)
[2018-08-29] MEDS: IPRATROPIUM BROMIDE 0.02% 2.5 ML NEB NEB PRN (07:38)
[2018-08-29] MEDS: FERROUS SULFATE 325 MG TAB PO SCH (08:38)
[2018-08-29] MEDS: BUMETANIDE 1 MG TAB PO SCH (08:38)
[2018-08-29] MEDS: LORATADINE 10 MG TAB PO SCH (08:38)
[2018-08-29] MEDS: LOSARTAN POTASSIUM 100 MG TAB PO SCH (08:38)
[2018-08-29] MEDS: CLONIDINE HCL 0.1 MG TAB PO SCH ×2 (08:38→15:33)
[2018-08-29] MEDS: HYDRALAZINE HCL 25 MG TAB PO SCH ×3 (08:38→20:54)
[2018-08-29] MEDS: FAMOTIDINE 20 MG TAB PO SCH (08:39)
[2018-08-29] MEDS: METOPROLOL TARTRATE 25 MG TAB PO SCH ×2 (08:39→15:33)
[2018-08-29] MEDS: TERBINAFINE 30 GM CR TP SCH (08:39)
[2018-08-29] MEDS: AMMONIUM LACTATE 12% LOTION 225GM BTL TOP SCH (08:39)
[2018-08-29] MEDS: PANTOPRAZOLE SOD 40 MG TABEC PO SCH (08:39)
[2018-08-29] MEDS: MULTIVITAMINS/MINERALS TAB PO SCH (08:39)
[2018-08-29] MEDS: POLYETHYLENE GLYCOL 3350 17 GM PACK PO SCH ×2 (08:39→15:33)
[2018-08-29] MEDS: VANCOMYCIN 750MG/NS 150ML IVPB 150 ML IV SCH (09:45)
--- NOTE | 2018-08-29 09:55 | NUR ---
aware of vancomycin trough 13.8. Per "hold vancomycin"
--- NOTE | 2018-08-29 18:57 | NUR ---
WALKING ROUNDS PERFORMED, RECEIVED PT LAYING SEMI FOWLERS IN BED, AAOX3, RR EVEN AND NON-LABORED, ON RA. NO S/SX OF DISTRESS NOTED. PUREWICK IN PLACE FOR URINE COLLECTION. PT ALSO WEARING DIAPER. LEFT PT LAYING SEMI FOWLERS IN BED, BED IN LOW LOCKED POSITION, SIDE RAILS UPX2, CALL LIGHT AND PHONE WITHIN REACH.
--- NOTE | 2018-08-29 19:05 | NUR ---
Report given to oncoming nurse of patient's status. No s/s of acute distress noted.
[2018-08-29] MEDS: SIMVASTATIN 20 MG TAB PO SCH (20:54)
[2018-08-29] MEDS: MELATONIN 5 MG TABLET PO SCH (20:54)
[2018-08-30] VITALS (7 sets, daily range): BP systolic 161–188; BP diastolic 67–93
[2018-08-30] MEDS: PIPER-TAZ 3.375 GM 50 ML IV SCH ×3 (03:45→20:18)
--- NOTE | 2018-08-30 07:00 | NUR ---
RECEIVED BEDSIDE SHIFT CHANGE REPORT FROM REAGAN SALAZAR. PT DENIES NEEDS AT THIS TIME.
--- NOTE | 2018-08-30 07:02 | NUR ---
PT IS AAOX3, RR EVEN AND NON-LABORED. NO S/SX OF DISTRESS NOTED. LEFT PT LAYING SEMI FOWLERS IN BED, BED IN LOW LOCKED POSITION, SIDE RAILS UPX2, CALL LIGHT AND PHONE WITHIN REACH.
[2018-08-30] MEDS: BUMETANIDE 1 MG TAB PO SCH (08:34)
[2018-08-30] MEDS: MULTIVITAMINS/MINERALS TAB PO SCH (08:35)
[2018-08-30] MEDS: HYDRALAZINE HCL 25 MG TAB PO SCH ×3 (08:36→20:18)
[2018-08-30] MEDS: PANTOPRAZOLE SOD 40 MG TABEC PO SCH (08:36)
[2018-08-30] MEDS: LOSARTAN POTASSIUM 100 MG TAB PO SCH (08:37)
[2018-08-30] MEDS: FAMOTIDINE 20 MG TAB PO SCH (08:38)
[2018-08-30] MEDS: FERROUS SULFATE 325 MG TAB PO SCH (08:38)
[2018-08-30] MEDS: LORATADINE 10 MG TAB PO SCH (08:39)
[2018-08-30] MEDS: METOPROLOL TARTRATE 25 MG TAB PO SCH ×2 (08:40→16:02)
[2018-08-30] MEDS: CLONIDINE HCL 0.1 MG TAB PO SCH ×2 (08:41→16:02)
[2018-08-30] MEDS: AMMONIUM LACTATE 12% LOTION 225GM BTL TOP SCH (09:45)
[2018-08-30] MEDS: TERBINAFINE 30 GM CR TP SCH (09:45)
[2018-08-30] MEDS: POLYETHYLENE GLYCOL 3350 17 GM PACK PO SCH ×2 (10:09→16:02)
--- NOTE | 2018-08-30 12:00 | NUR ---
SPOKE TO DIANE AT DR. ROLLINS'S OFFICE REGARDING SNF EVALUATION.
--- NOTE | 2018-08-30 14:32 | NUR ---
Nutrition Screen Note RD Recommendation for Physician: - Continue current diet Plan of Care: RD following, monitoring for tolerance and adequacy Nutrition reason for involvement: Early LOS Primary Diagnose(s): Bilateral LE cellulitis PMH: No H&P per chart Ht: 64 in Wt: 174 lb BMI: 29.9kg/m2 IBW: [address] Assessment: (08/30) 83 YOF admitted for BLE cellulitis, seen today for early LOS. Pt discussed during am rounds, pt being evaluated for SNF currently. Pt reports good appetite and po intake SPEECH LANG PATH, noted fluctuating po intake currently of 25-100% of meals. Pt states "I'm not a big breakfast eater". Pt denies any difficulty chewing or swallowing and denies any GI distress. Pt can not recall UBW, reports that she has lost wt, but doesn't know how much. No physical signs of malnutrition upon exam. Chart reviewed. Labs and meds reviewed. Current Diet: Cardiac Malnutrition Evaluation (08/30/18) The patient does not meet criteria for a specified degree of malnutrition at this time. Will re-evaluate at follow-up as appropriate. Diet Education Needs Assessment: Diet education not indicated. Nutrition Care Level: Low Signed: Naima Muñoz RD, LD, [facility]
[2018-08-30] MEDS: SODIUM CHLORIDE 0.9% 1000ML 1,000 ML IV SCH (17:45)
--- NOTE | 2018-08-30 19:00 | NUR ---
BEDSIDE SHIFT REPORT GIVEN TO FUNERAL DIRECTOR'S ASSISTANT RN. PT DENIES NEEDS AT THIS TIME.
[2018-08-30] MEDS: MELATONIN 5 MG TABLET PO SCH (20:18)
[2018-08-30] MEDS: SIMVASTATIN 20 MG TAB PO SCH (20:18)
[2018-08-31] VITALS: BP 141/75
[2018-08-31] MEDS: PIPER-TAZ 3.375 GM 50 ML IV SCH (03:50)
[2018-08-31 04:00] VITALS: BP 140/89
--- NOTE | 2018-08-31 07:00 | NUR ---
RECEIVED BEDSIDE SHIFT CHANGE REPORT FROM JEWELL RN. PT DENIES NEEDS AT THIS TIME.
[2018-08-31] MEDS: FAMOTIDINE 20 MG TAB PO SCH (07:55)
[2018-08-31] MEDS: BUMETANIDE 1 MG TAB PO SCH (07:55)
[2018-08-31] MEDS: FERROUS SULFATE 325 MG TAB PO SCH (07:55)
[2018-08-31] MEDS: MULTIVITAMINS/MINERALS TAB PO SCH (07:57)
[2018-08-31] MEDS: METOPROLOL TARTRATE 25 MG TAB PO SCH (07:57)
[2018-08-31] MEDS: CLONIDINE HCL 0.1 MG TAB PO SCH (07:58)
[2018-08-31] MEDS: LOSARTAN POTASSIUM 100 MG TAB PO SCH (07:58)
[2018-08-31] MEDS: PANTOPRAZOLE SOD 40 MG TABEC PO SCH (07:58)
[2018-08-31] MEDS: LORATADINE 10 MG TAB PO SCH (07:58)
[2018-08-31] MEDS: HYDRALAZINE HCL 25 MG TAB PO SCH (08:01)
[2018-08-31] MEDS: TERBINAFINE 30 GM CR TP SCH (08:01)
[2018-08-31] MEDS: POLYETHYLENE GLYCOL 3350 17 GM PACK PO SCH (08:01)
[2018-08-31] MEDS: AMMONIUM LACTATE 12% LOTION 225GM BTL TOP SCH (08:01)
[2018-08-31 08:39] VITALS: BP 205/93
--- NOTE | 2018-08-31 08:41 | NUR ---
PT RECOMMENDS HOME WITH HOME HEALTH, NOT A SNF CANDIDATE
[2018-08-31 09:00] VITALS: BP 205/93
[2018-08-31 11:17] VITALS: BP 155/82
--- NOTE | 2018-09-01 06:22 | Discharge Summary ---
DISCHARGE DIAGNOSES: 1. Bilateral leg cellulitis, improving. 2. Lymphedema. 3. Rheumatoid arthritis. 4. Chronic use of immunosuppressants. HOSPITAL COURSE: Ms. Rice is an unfortunate, but very pleasant 83-year-old lady, well known to me. She has multiple prior admissions to this hospital, the most recent being July 28, 2018, for cellulitis. She has been to the office for followup and she was back to her baseline, but then presented with a sudden onset of increased redness, pain, and low-grade temperature coming from evident cellulitis of both lower extremities. She was admitted to the hospital. She was treated with a combination of Zosyn and vancomycin and bed rest. Her peripheral edema progressively resolved as has her erythema. The white cell count has remained normal. There was no open wounds. There was significant presence of fungal infection in the bilateral lower extremities and feet. This has been treated with topical Azole. She is being discharged home in stable condition. She was given a prescription for Augmentin 500 mg twice a day. She is to follow up in the office in 1 week's time. MD CATHY Shine/KD /[id number]
== END 2018-08-31 11:36 | disposition home or self-care (01) | DRG 603 ==
LOC: MED/SURG2 16:48
PROVIDERS: ADMIT Internal Medicine; ATTEND Internal Medicine
DX: L03.116 Cellulitis of left lower limb (principal); B48.8 Other specified mycoses; L03.115 Cellulitis of right lower limb; M06.9 Rheumatoid arthritis, unspecified; I89.0 Lymphedema, not elsewhere classified; I12.9 Hypertensive chronic kidney disease with stage 1 through stage 4 chronic kidney disease, or unspecified chronic kidney disease; N18.3 Chronic kidney disease, stage 3 (moderate); J44.9 Chronic obstructive pulmonary disease, unspecified; Z96.659 Presence of unspecified artificial knee joint; Z96.649 Presence of unspecified artificial hip joint; M81.0 Age-related osteoporosis without current pathological fracture; Z79.899 Other long term (current) drug therapy; Z88.5 Allergy status to narcotic agent; Z88.8 Allergy status to other drugs, medicaments and biological substances
CPT/HCPCS: 36415; 80048; 80053; 80202; 81001; 85025; 87086; 87186; 94640; 97139; J2543; J7030

== ENCOUNTER 2018-10-02 12:33 | Inpatient (IN) | payer OTHER, MEDICARE ==
[~2018-10-02] VITALS: Ht 142.2 cm; Wt 75.7 kg
[~2018-10-02 12:33] MED LIST changes: +IPRATROPIU0.2 MG/1 M NEB; +MELATONIN3 MG PO; +PROLIA60 MG/1 ML SC
--- OUTSIDE RECORDS SUMMARY | 2018-10-02 12:36 | XMS REPORT | Summary of Care ---
Author Author Wendi Muñoz M.A. Organization Unknown Address [facility] Phone Unavailable Care Team Providers Care Supervisor Cd Area Name Role Phone ERIK Turner, JENA Unavailable Unavailable RIA Ferguson, LAMAR Hathaway Unavailable Wendi Muñoz M.A. Unavailable Unavailable DAVID Ferguson, JAQUELIN Unavailable Unavailable RIA CAMARILLO [place], LAMAR [place] Unavailable Unavailable Abbey CAMARILLO, Ric Unavailable Unavailable DAVID CAMARILLO [place], JAQUELIN Unavailable Unavailable Unavailable Unavailable Functional Status Name [...] with acute exacerbation (491.21, J44.1) Status: Active Pressure injury of left foot, stage 1 (707.09, L89.891) Status: Active Insomnia (780.52, G47.00) Status: Active Anemia of chronic disease (285.29, D63.8) Status: Active Visual disturbance (368.9, H53.9) Status: Active Cloudy vision (368.8, H53.8) Status: Active Hematochezia (578.1, K92.1) Status: Active Cellulitis of right lower extremity (682.6, L03.115) Status: Active Osteoporosis (733.00, M81.0) Status: Active 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 (714.0, M05.771) Status: Active Visit for monitoring Actemra therapy (V58.83, Z51.81) Status: Active Encounter for monitoring denosumab therapy (V58.83, Z51.81) Status: Active Leg cramps (729.82, R25.2) Status: Active 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 * Start : 20-Aug-2015 Active cloNIDine HCl - 0.1 MG Oral Tablet TAKE ONE TABLET BY MOUTH TWICE A DAY * Quantity: 60 Refills: 4 LAMAR ROLLINS M.D. * Start : 27-Aug-2015 Active Actemra 400 MG/20ML Intravenous Solution Infuse 800mg IV monthly for rheumatoid arthritis (pt weight ~74kg, administering max dose) * Quantity: 2 Refills: 6 JAQUELIN HERNANDEZ M.D. * Start : 01-Jun-2015 Active 20 ML Vial Ergocalciferol 41770 UNIT Oral Capsule TAKE 1 CAPSULE WEEKLY. [...] ROLLINS M.D. * Start : 17-Jun-2018 Active Clotrimazole 10 MG Mouth/Throat Tasha DISSOLVE ONE TABLET IN MOUTH FIVE TIMES A DAY DIRECTED * Quantity: 45 Refills: 0 LAMAR ROLLINS M.D. * Start : 14-Sep-2018 Active Multivitamins CAPS TAKE 1 CAPSULE DAILY * Refills: 0 Active Restasis 0.05 % Ophthalmic Emulsion Instill 1 drop into both eyes daily * Refills: 0 Active Ferrous Sulfate 325 (65 Fe) MG Oral Tablet TAKE 1 TABLET DAILY WITH FOOD. * Quantity: 90 Refills: 1 LAMAR ROLLINS M.D. Active Nebulizer Air Tube/Plugs NEBULIZER TUBING AND FACE MASK * Quantity: 1 Refills: 0 LAMAR ROLLINS M.D. * Start : 28-May-2018 Active Ipratropium-Albuterol 0.5-2.5 (3) MG/3ML Inhalation Solution ADMINISTER ONE 3 ML VIAL TWICE DAILY VIA NEBULIZATION. * Quantity: 1 Refills: 3 Active 30 x 3 ML Plas Cont Prolia 60 MG/ML Subcutaneous Solution Prefilled Syringe Inject 60mg SC once every 6 months. * Quantity: 1 Refills: 4 JAQUELIN HERNANDEZ M.D. * Start : 15-Sep-2018 Active Milliliter PreserVision AREDS Oral Capsule TAKE 1 CAPSULE DAILY * Refills: 0 Active Allergies and Adverse Reactions Name Dates [...] SED RATE BY MODIFIED WESTERGREN Date: 12-Aug-2018 [QLH] LIPID PANEL Date: 14-Sep-2018 [QLH] CBC (INCLUDES DIFF/PLT) Date: 14-Sep-2018 [QLH] CMP W/EGFR Date: 14-Sep-2018 [QLH] C-REACTIVE PROTEIN Date: 14-Sep-2018 [QLH] SED RATE BY MODIFIED WESTERGREN Date: 14-Sep-2018 [QL] BASIC METABOLIC PANEL W/EGFR Date: 27-Sep-2018 History of Hysterectomy Completed History of Knee Replacement Completed History of Elbow Arthroplasty Total Elbow Replacement Completed Immunization Name Dates Details Pneumococcal polysaccharide vaccine, 23 valent on: 19-Aug-2008 Influenza on: 06-Jan-2012 Fluzone INJ Lot #: [id number] on: 04-Mar-2013 Influenza Lot #: [id number] on: 24-Mar-2014 Fluvirin INJ Lot #: [id number] on: 29-Dec-2014 Prevnar 13 Intramuscular Suspension Lot #: [id number] on: 26-Jan-2015 PPD on: 30-Apr-2015 Fluzone INJ Lot #: [id number] on: 18-Jan-2016 PPD, tuberculin skin test; purified protein derivative solution, intradermal on: 13-Jun-2016 Pneumovax 23 25 MCG/0.5ML Injection Injectable Lot #: [id number] on: 13-Nov-2016 Fluzone High-Dose 0.5 ML Intramuscular Suspension Prefilled Syringe Lot #: [id number] on: 12-Jan-2017 Fluzone High-Dose 0.5 ML Intramuscular Suspension Prefilled Syringe Lot #: [id number] on: 23-Dec-2017 PPD, tuberculin skin test; purified protein derivative solution, intradermal on: 18-Mar-2018 Tdap on: 27-Sep-2018 Shingrix 50 MCG Intramuscular Suspension Reconstituted on: 27-Sep-2018 Family History Name Dates Details Family history [...] smoker Vital Signs Date Test Result Details :25 BP Systolic 148 mm[Hg] Status: Comments: Location: LUE; Position: Sitting BP Diastolic 73 mm[Hg] Status: Comments: Location: LUE; Position: Sitting Height 56 in Status: Weight 166 lb Status: Body Mass Index Calculated 37.22 kg/m2 Status: Body Surface Area Calculated 1.64 m2 Status: Temperature 97.8 f Status: Comments: Method: Oral Respiration Rate 16 /min Status: Heart Rate 71 /min Status: :26 BP Systolic 143 mm[Hg] Status: Comments: Location: LUE; Position: Sitting BP Diastolic 78 mm[Hg] Status: Comments: Location: LUE; Position: Sitting Height 56 in Status: Weight 163 lb Status: Body Mass Index Calculated 36.54 kg/m2 Status: Body Surface Area Calculated 1.63 m2 Status: Temperature 97.5 f Status: Comments: Method: Oral Respiration Rate 16 /min Status: Heart Rate 63 /min Status: :40 BP Systolic 124 mm[Hg] Status: Comments: Location: LUE; Position: Sitting BP Diastolic 50 mm[Hg] Status: Comments: Location: LUE; Position: Sitting Height 56 in Status: Weight 165 lb Status: Body Mass Index Calculated 36.99 kg/m2 Status: Body Surface Area Calculated 1.64 m2 Status: Temperature 98.2 f Status: Comments: Method: Oral Respiration Rate 16 /min Status: Heart Rate 81 /min Status: Physical Findings 0 Status: Comments: Pain Scale Results Date Description Value Details :24 [QLH] CMP W/EGFR Sodium Level 137 {mEq/l} Range: 135-145 Potassium Level 5.2 {mEq/l} (Above high threshold) Range: 3.5-5.1 Chloride Level 102 {mEq/l} Range: 95-109 Carbon Dioxide 24 {mEq/l} Range: 24-32 AGAP 16.2 {mEq/l} Range: 10.0-20.0 Glucose Lvl 96 mg/dl Range: 70-99 Comments: Adult reference range values reflect the clinical guidelinesof the [place] [employer]. Creatinine Lvl 1.00 mg/dl Range: 0.50-1.40 Blood Urea Nitrogen 14 mg/dl Range: 7-22 BUN/Creatinine Ratio 14 Range: 6-25 Total Protein 7.7 g/dl Range: 6.4-8.4 Albumin Lvl 3.4 g/dl (Below low threshold) Range: 3.5-5.0 Globulin 4.3 g/dl (Above high threshold) Range: 2.7-4.2 A/G Ratio 0.8 Range: 0.7-1.6 Calcium Level Total 9.9 mg/dl Range: 8.5-10.5 ALT 19 u/l Range: 0-65 AST 35 u/l Range: 0-37 Bili Total 0.5 mg/dl Range: 0.2-1.3 Alk Phos 53 u/l Range: 39-136 eGFR 52 {ML/MIN/1.7} Comments: The eGFR is calculated using the CKD-EPI formula. In most young, healthyindividuals the eGFR will be >90 mL/min/1.73m2. The eGFR declines with age. AneGFR of 60-89 may be normal in some populations, particularly the elderly, forwhom the CKD-EPI formula has not been extensively validated. Use of the eGFR isnot recommended in the following populations:Individuals with unstable creatinine concentrations, including patients and those with serious co-morbid conditions.Patients with extremes in muscle mass or diet.The data above are obtained from the National Kidney Disease Education Program(NKDEP) which additionally recommends that when the eGFR is used in patientswith extremes of body mass index for purposes of drug dosing, the eGFR shouldbe multiplied by the estimated BMI. [id number]:24 [QL] LIPID PANEL Chol 129 mg/dl Range: <=199 Trig 139 mg/dl Range: <=149 HDL Cholesterol 42 mg/dl (Below low threshold) Range: >=61 CHD Risk 3.07 (Below low threshold) Range: 3.90-5.80 LDL 59 mg/dl Range: <=99 VLDL 28 19-Ata-[id number]:24 [QL] CBC (INCLUDES DIFF/PLT) WBC 7.1 {K/CMM} Range: 3.7-10.4 RBC 4.09 {M/CMM} (Below low threshold) Range: 4.20-5.40 Hgb 12.4 g/dl Range: 12.0-16.0 Hct 38.7 % Range: 36.0-48.0 MCV 94.7 fL Range: 80.0-98.0 MCH 30.4 pg Range: 27.0-31.0 MCHC 32.2 g/dl Range: 32.0-36.0 RDW 13.9 % Range: 11.5-14.5 Platelet 281 {K/CMM} Range: 133-450 Mean Platelet Volume 10.0 fL Range: 7.4-10.4 :24 [[facility]] Differential Segmented Neutrophils 43.4 % (Below low threshold) Range: 45.0-75.0 Monocytes 9.4 % Range: 2.0-12.0 Lymphocytes 42.7 % (Above high threshold) Range: 20.0-40.0 Eosinophils 3.1 % Range: 0.0-4.0 Basophils 1.4 % (Above high threshold) Range: 0.0-1.0 Segs-Bands # 3.1 {K/CMM} Range: 1.5-8.1 Lymphocytes # 3.0 {K/CMM} Range: 1.0-5.5 Monocytes # 0.7 {K/CMM} Range: 0.0-0.8 Eosinophils # 0.2 {K/CMM} Range: 0.0-0.5 Basophils # 0.1 {K/CMM} Range: 0.0-0.2 :24 [[facility]] C-REACTIVE PROTEIN CRP 22.1 mg/L (Above high threshold) Range: <=2.9 :24 [[facility]] SED RATE BY MODIFIED WESTERGREN Sedimentation Rate 60 {mm/hr} (Above high threshold) Range: 0-20 [id number]-[id number] [[facility]] BASIC METABOLIC PANEL W/EGFR Comments: REPORT COMMENT:FASTING:NOAN UPDATE OR CORRECTION HAS BEEN MADE TO NAME GLUCOSE 98 mg/dl (Normal) Range: 65-139 Comments: Non-fasting reference interval UREA NITROGEN (BUN) 34 mg/dl (Above high threshold) Range: 7-25 CREATININE 1.25 mg/dl (Above high threshold) Range: 0.60-0.88 Comments: For patients >49 years of age, the reference limitfor Creatinine is approximately 13% higher for peopleidentified as -Algerian. eGFR NON- 39 {ML/MIN/1.7} (Below low threshold) Range: > OR=60 eGFR 45 {ML/MIN/1.7} (Below low threshold) Range: > OR=60 BUN/CREATININE RATIO 27 {CALC} (Above high threshold) Range: 6-22 SODIUM 135 mmol/L (Normal) Range: 135-146 POTASSIUM 4.7 mmol/L (Normal) Range: 3.5-5.3 CHLORIDE 99 mmol/L (Normal) Range: 98-110 CARBON DIOXIDE 26 mmol/L (Normal) Range: 20-32 CALCIUM 10.0 mg/dl (Normal) Range: 8.6-10.4 Plan of Care Name Dates Details Planned Observations Planned Goals not documented Planned Encounters Appointment; LAMAR ROLLINS M.D. On: 12-Oct-2018 11:30 Appointment; JAQUELIN HERNANDEZ M.D. On: 16-Dec-2018 11:30 Instructions Name Dates Details Instructions not documented Encounters Appointment; KENZIE ORNELAS P.A. Encounter Diagnosis: Problem [...] Problem not documented On: 05-Feb-2017 14:00 Appointment; RIC BAEZ M.D. Encounter Diagnosis: Problem not documented [...] Problem not documented On: 10-Nov-2017 11:00 Appointment; RIC BAEZ M.D. Encounter Diagnosis: Problem not documented [...] Problem not documented On: 06-Apr-2018 14:00 Appointment; RIC BAEZ M.D. Encounter Diagnosis: Problem not documented [...] Diagnosis: Problem not documented On: 12-Aug-2018 13:15 Appointment; LAMAR ROLLINS M.D. Encounter Diagnosis: Problem not documented On: 25-Aug-2018 14:30 Appointment; LAMAR ROLLINS M.D. Encounter Diagnosis: Problem not documented On: 08-Sep-2018 14:30 Appointment; JAQUELIN HERNANDEZ M.D. Encounter Diagnosis: Problem not documented On: 14-Sep-2018 14:30 Appointment; LAMAR ROLLINS M.D. Encounter Diagnosis: Problem not documented On: 27-Sep-2018 15:30
[2018-10-02] MEDS ORDERED: SODIUM CHLORIDE 0.9% 1000ML 1,000 ML IV STA (12:45)
[2018-10-02] MEDS: PIPER-TAZ 3.375 GM 50 ML IV SCH ×2 (13:50→23:42)
[2018-10-02 14:01] LABS: INR 0.92; PROTHROMBIN TIME 12.8 seconds (11.9-14.5)
[2018-10-02 14:02] LABS: PARTIAL THROMBOPLASTIN TIME 35.6 seconds (23.8-35.5)
[2018-10-02 14:11] LABS: ALBUMIN 3.7 g/dL (3.5-5.0); ALBUMIN/GLOBULIN RATIO 0.9 (0.8-2.0); ANION GAP 16.2 mmol/L (8-16); CALCIUM 9.8 mg/dL (8.4-10.2); CREATININE, SERUM 1.18 mg/dL (0.57-1.11); POTASSIUM 4.2 mmol/L (3.5-5.1)
[2018-10-02 14:17] LABS: BASOPHILS % 0.2 % (0.0-1.0); EOSINOPHILS # (AUTO) 0.1 (0.0-0.4); EOSINOPHILS % 0.5 % (0.0-6.0); HEMATOCRIT 38.4 % (34.2-44.1); HEMOGLOBIN 12.6 g/dL (12.0-16.0); LYMPHOCYTES # (AUTO) 1.1 (1.0-3.2); LYMPHOCYTES % 5.3 % (18.0-39.1); MEAN CORPUSCULAR HEMOGLOBIN 30.5 pg (28-32); MEAN CORPUSCULAR HGB CONC 32.8 g/dL (31-35); MONOCYTES # (AUTO) 0.5 (0.2-0.8); MONOCYTES % 2.2 % (4.4-11.3); NEUTROPHILS # (AUTO) 19.2 (2.1-6.9); NEUTROPHILS % 91.5 % (38.7-80.0); PLATELET COUNT 227 x10e3/uL (140-360); RED BLOOD COUNT 4.13 x10e6/uL (3.6-5.1); RED CELL DISTRIBUTION WIDTH 12.9 % (11.7-14.4)
[2018-10-02 14:18] LABS: CREATINE KINASE MB 1.2 ng/mL (0-5.0)
[2018-10-02] MEDS: VANCOMYCIN 1GM/NS 250 ML 250 ML IV SCH (14:33)
[2018-10-02 14:51] LABS: BILIRUBIN,URINE NEGATIVE (NEGATIVE); CLARITY,URINE CLEAR (CLEAR); COLOR,URINE YELLOW (YELLOW); KETONES,URINE NEGATIVE (NEGATIVE); LEUKOCYTE ESTERASE ,URINE SMALL (NEGATIVE); NITRITE,URINE NEGATIVE (NEGATIVE); PROTEIN,URINE DIPSTICK NEGATIVE (NEGATIVE); URINE UROBILINOGEN 0.2 mg/dL (0.2 - 1)
[2018-10-02 15:07] LABS: BACTERIA,URINE MANY /HPF
[2018-10-02 15:08] LABS: EPITHELIAL CELLS,URINE RARE /LPF
--- NOTE | 2018-10-02 15:40 | NUR ---
lab was called to come and draw a lactic acid on this pateint; spoke merced smith
[2018-10-02] MEDS ORDERED: ONDANSETRON HCL INJ 2MG/ML 2ML 2 MG/ML VIAL IV PRN (16:15)
--- OUTSIDE RECORDS SUMMARY | 2018-10-02 16:20 | XMS REPORT | Summary of Care ---
Author Author Moses Reyna, Ese Organization Unknown Address [facility] Phone Unavailable Care Team Providers Care Vtc Technician Name Role Phone ERIK Turner, JENA Unavailable Unavailable RIA Ferguson, LAMAR Unavailable Unavailable DAVID Ferguson, JAQUELIN Unavailable Unavailable Moses Reyna, Ese Unavailable Unavailable RIA CAMAIRLLO [place], LAMAR [place] Unavailable Unavailable Abbey CAMARILLO, Ric Unavailable Unavailable DAVID CAMARILLO [place], JAQUELIN Unavailable Unavailable Unavailable Unavailable Functional Status [...] TABLET TWICE A DAY Quantity: 90 LAMAR KIM M.D. * Start : 19-Jul-2018 Active Pantoprazole Sodium 40 MG Oral Tablet Delayed Release TAKE 1 TABLET DAILY * Quantity: 90 Refills: 1 LAMAR KIM M.D. * Start : 05-Apr-2018 Active Tylenol Arthritis Ext Relief 650 MG TBCR take one tablet as needed * Refills: 0 Active hydrALAZINE HCl - 50 MG Oral Tablet TAKE ONE TABLET BY MOUTH THREE TIMES A DAY * Quantity: 90 Refills: 4 LAMAR KIM M.D. * Start : 20-May-2018 Active Losartan Potassium 100 MG Oral Tablet TAKE ONE-HALF (1/2) TABLET DAILY * Quantity: 45 Refills: 1 JENA VALENCIA N.P. * Start : 10-May-2018 Active Bumetanide 1 MG Oral Tablet TAKE ONE TABLET BY MOUTH DAILY ON Thursday AND THURSDAY * Quantity: 15 Refills: 0 LAMAR KIM M.D. * Start : 20-Aug-2015 Active cloNIDine HCl - 0.1 MG Oral Tablet TAKE ONE TABLET BY MOUTH TWICE A DAY * Quantity: 60 Refills: 4 LAMAR KIM M.D. * Start : 27-Aug-2015 Active Actemra 400 MG/20ML Intravenous Solution Infuse 800mg IV monthly for rheumatoid arthritis (pt weight ~74kg, administering max dose) * Quantity: 2 Refills: 6 JAQUELIN HERNANDEZ M.D. * Start : 01-Jun-2015 Active 20 ML Vial Ergocalciferol 81987 UNIT Oral Capsule TAKE 1 CAPSULE WEEKLY. * Quantity: 12 Refills: 0 JAQUELIN HERNANDEZ M.D. * Start : 11-Jul-2015 Active Simvastatin 20 MG Oral Tablet TAKE ONE TABLET BY MOUTH ONCE DAILY * Quantity: 90 Refills: 1 LAMAR KIM M.D. * Start : 25-Jul-2015 Active [facility] * Quantity: 1 Refills: 0 LAMAR KIM M.D. * Start : 28-Sep-2015 Active Famotidine 40 MG Oral Tablet TAKE ONE TABLET BY MOUTH DAILY * Quantity: 30 Refills: 5 LAMAR KIM M.D. * Start : 20-May-2018 Active Gelocast Unnas Boot External USE EXTERNALLY DIRECTED * Quantity: 10 Refills: 0 JENA VALENCIA N.P. * Start : 26-Dec-2015 Active Cetirizine HCl - 10 MG Oral Tablet TAKE ONE TABLET BY MOUTH EVERY NIGHT AT BEDTIME * Quantity: 30 Refills: 2 LAMAR KIM M.D. * Start : 17-Jun-2018 Active Clotrimazole 10 MG Mouth/Throat Tasha DISSOLVE ONE TABLET IN MOUTH FIVE TIMES A DAY DIRECTED * Quantity: 45 Refills: 0 LAMAR KIM M.D. * Start : 14-Sep-2018 Active Multivitamins CAPS TAKE 1 CAPSULE DAILY * Refills: 0 Active Restasis 0.05 % Ophthalmic Emulsion Instill 1 drop into both eyes daily * Refills: 0 Active Ferrous Sulfate 325 (65 Fe) MG Oral Tablet TAKE 1 TABLET DAILY WITH FOOD. * Quantity: 90 Refills: 1 LAMAR KIM M.D. Active Nebulizer Air Tube/Plugs NEBULIZER TUBING AND FACE MASK * Quantity: 1 Refills: 0 LAMAR KIM M.D. * Start : 28-May-2018 Active Ipratropium-Albuterol [...] Influenza on: 06-Jan-2012 Fluzone INJ Lot #: [id number] on: 04-Mar-2013 Influenza Lot #: [id number] on: 24-Mar-2014 Fluvirin INJ Lot #: [id number] on: 29-Dec-2014 Prevnar 13 Intramuscular Suspension Lot #: [id number] on: 26-Jan-2015 PPD on: 30-Apr-2015 Fluzone INJ Lot #: [id number] on: 18-Jan-2016 PPD, tuberculin skin test; purified protein derivative solution, intradermal on: 13-Jun-2016 Pneumovax 23 25 MCG/0.5ML Injection Injectable Lot #: [id number] on: 13-Nov-2016 Fluzone High-Dose 0.5 ML Intramuscular Suspension Prefilled Syringe Lot #: [id number] on: 12-Jan-2017 Fluzone High-Dose 0.5 ML Intramuscular Suspension Prefilled Syringe Lot #: [id number] on: 23-Dec-2017 PPD, tuberculin skin test; purified [...] range values reflect the clinical guidelinesof the [place] [employer]. Creatinine Lvl 1.00 mg/dl Range: [...] eGFR shouldbe multiplied by the estimated BMI. 39-Hhw-[id number]:24 [QL] LIPID PANEL Chol 129 mg/dl Range: <=199 Trig 139 mg/dl Range: <=149 HDL Cholesterol 42 mg/dl (Below low threshold) Range: >=61 CHD Risk 3.07 (Below low threshold) Range: 3.90-5.80 LDL 59 mg/dl Range: <=99 VLDL 28 02-Hix-029689:24 [QL] CBC (INCLUDES DIFF/PLT) WBC 7.1 {K/CMM} Range: 3.7-10.4 RBC 4.09 {M/CMM} (Below low threshold) Range: 4.20-5.40 Hgb 12.4 g/dl Range: 12.0-16.0 Hct 38.7 % Range: 36.0-48.0 MCV 94.7 fL Range: 80.0-98.0 MCH 30.4 pg Range: 27.0-31.0 MCHC 32.2 g/dl Range: 32.0-36.0 RDW 13.9 % Range: 11.5-14.5 Platelet 281 {K/CMM} Range: 133-450 Mean Platelet Volume 10.0 fL Range: 7.4-10.4 :24 [[facility]] Differential Segmented Neutrophils 43.4 % (Below low [...] Basophils # 0.1 {K/CMM} Range: 0.0-0.2 :24 [[facility]] C-REACTIVE PROTEIN CRP 22.1 mg/L (Above high threshold) Range: <=2.9 :24 [[facility]] SED RATE BY MODIFIED WESTERGREN Sedimentation Rate 60 {mm/hr} (Above high threshold) Range: 0-20 41-Exl-381145:36 [[facility]] BASIC METABOLIC PANEL W/EGFR Comments: REPORT COMMENT:FASTING:NOAN UPDATE OR CORRECTION HAS BEEN MADE TO NAME GLUCOSE 98 mg/dl (Normal) Range: 65-139 Comments: Non-fasting reference interval UREA NITROGEN (BUN) 34 mg/dl (Above high threshold) Range: 7-25 CREATININE 1.25 mg/dl (Above high threshold) Range: 0.60-0.88 Comments: For patients >49 years of age, the reference limitfor Creatinine is approximately 13% higher for peopleidentified as -Moroccan. eGFR NON- 39 {ML/MIN/1.7} (Below low threshold) [...] Goals not documented Planned Encounters Appointment; LAMAR KIM M.D. On: 12-Oct-2018 11:30 Appointment; JAQUELIN HERNANDEZ M.D. On: 16-Dec-2018 11:30 Interventions Provided Discussion/Summary* Guideline Used: * Other: speak w/ Dr Kim * Recommended Disposition: Connect w/ physician * Intended Caller Action: * Other: speak w/ Dr Kim * Additional Information: * [place] text sent to Dr Kim of the info, instructe caller to call back if no response within 30 mins. Caller verblized understanding of the call. Instructions Name Dates Details Instructions not documented Encounters Appointment; KENZIE ORNELAS P.A. Encounter Diagnosis: Problem not documented On: 14-Oct-2016 9:00 Appointment; LAMAR KIM M.D. Encounter Diagnosis: Problem not documented On: 28-Oct-2016 14:15 Appointment; LAMAR KIM M.D. Encounter Diagnosis: Problem not documented On: 11-Nov-2016 14:15 Appointment; JENA VALENCIA NP Encounter Diagnosis: Problem not documented On: 13-Nov-2016 9:30 Appointment; JAQUELIN HERNANDEZ M.D. Encounter Diagnosis: Problem not documented On: 25-Nov-2016 10:30 Appointment; JAQUELIN HERNANDEZ M.D. Encounter Diagnosis: Problem not documented On: 04-Dec-2016 11:00 Appointment; LAMAR KIM M.D. Encounter Diagnosis: Problem not documented On: 30-Dec-2016 15:15 Appointment; LAMAR KIM M.D. Encounter Diagnosis: Problem not documented On: 12-Jan-2017 13:15 Appointment; [place] Encounter Diagnosis: Problem not documented On: 05-Feb-2017 14:00 Appointment; RIC BAEZ M.D. Encounter Diagnosis: Problem not documented On: 10-Feb-2017 14:00 Appointment; JAQUELIN HERNANDEZ M.D. Encounter Diagnosis: Problem not documented On: 10-Mar-2017 14:00 Appointment; LAMAR KIM M.D. Encounter Diagnosis: Problem not documented On: 17-Mar-2017 13:15 Appointment; LAMAR KIM M.D. Encounter Diagnosis: Problem not documented On: 14-Apr-2017 11:15 Appointment; LAMAR KIM M.D. Encounter Diagnosis: Problem not documented On: 19-May-2017 14:15 Appointment; LAMAR KIM M.D. Encounter Diagnosis: Problem not documented On: 26-May-2017 15:15 Appointment; LAMAR KIM M.D. Encounter Diagnosis: Problem not documented On: 05-Jun-2017 13:30 Appointment; JAQUELIN HERNANDEZ M.D. Encounter Diagnosis: Problem not documented On: 11-Jun-2017 10:30 Appointment; JAQUELIN HERNANDEZ M.D. Encounter Diagnosis: Problem not documented On: 15-Jun-2017 10:30 Appointment; LAMAR KIM M.D. Encounter Diagnosis: Problem not documented On: 19-Jun-2017 13:30 Appointment; JAQUELIN HERNANDEZ M.D. Encounter Diagnosis: Problem not documented On: 29-Jun-2017 15:00 Appointment; LAMAR KIM M.D. Encounter Diagnosis: Problem not documented On: 20-Jul-2017 14:15 Appointment; JAQUELIN HERNANDEZ M.D. Encounter Diagnosis: Problem not documented On: 10-Aug-2017 14:30 Appointment; LAMAR KIM M.D. Encounter Diagnosis: Problem not documented On: 24-Aug-2017 14:15 Appointment; JAQUELIN HERNANDEZ M.D. Encounter Diagnosis: Problem not documented On: 08-Sep-2017 11:00 Appointment; JAQUELIN HERNANDEZ M.D. Encounter Diagnosis: Problem not documented On: 15-Sep-2017 9:30 Appointment; CAM LLANOS M.D. Encounter Diagnosis: Problem not documented On: 18-Sep-2017 8:30 Appointment; LAMAR KIM M.D. Encounter Diagnosis: Problem not documented On: 07-Oct-2017 13:30 Appointment; LAMAR KIM M.D. Encounter Diagnosis: Problem not documented On: 19-Oct-2017 13:45 Appointment; LAMAR KIM M.D. Encounter Diagnosis: Problem not documented On: 10-Nov-2017 11:00 Appointment; RIC BAEZ M.D. Encounter Diagnosis: Problem not documented On: 15-Dec-2017 14:00 Appointment; JAQUELIN HERNANDEZ M.D. Encounter Diagnosis: Problem not documented On: 17-Dec-2017 10:00 Appointment; LAMAR KIM M.D. Encounter Diagnosis: Problem not documented On: 23-Dec-2017 13:15 Appointment; JENA VALENCIA NP Encounter Diagnosis: Problem not documented On: 31-Dec-2017 13:00 Appointment; KOLE BARRETO M.D. Encounter Diagnosis: Problem not documented On: 08-Jan-2018 9:15 Appointment; LAMAR KIM M.D. Encounter Diagnosis: Problem not documented On: 02-Feb-2018 13:45 Appointment; LAMAR KIM M.D. Encounter Diagnosis: Problem not documented On: 23-Feb-2018 13:15 Appointment; JAQUELIN HERNANDEZ M.D. Encounter Diagnosis: Problem not documented On: 18-Mar-2018 10:30 Appointment; LAMAR KIM M.D. Encounter Diagnosis: Problem not documented On: 06-Apr-2018 14:00 Appointment; RIC BAEZ M.D. Encounter Diagnosis: Problem not documented On: 09-Apr-2018 14:00 Appointment; LAMAR KIM M.D. Encounter Diagnosis: Problem not documented On: 17-May-2018 13:30 Appointment; LAMAR KIM M.D. Encounter Diagnosis: Problem not documented On: 28-May-2018 13:15 Appointment; JAQUELIN HERNANDEZ M.D. Encounter Diagnosis: Problem not documented On: 17-Jun-2018 10:30 Appointment; LAMAR KIM M.D. Encounter Diagnosis: Problem not documented On: 23-Jun-2018 14:45 Appointment; LAMAR KIM M.D. Encounter Diagnosis: Problem not documented On: 22-Jul-2018 14:15 Appointment; LAMAR KIM M.D. Encounter Diagnosis: Problem not documented On: 03-Aug-2018 14:00 Appointment; LAMAR KIM M.D. Encounter Diagnosis: Problem not documented On: 12-Aug-2018 13:15 Appointment; LAMAR KIM M.D. Encounter Diagnosis: Problem not documented On: 25-Aug-2018 14:30 Appointment; LAMAR KIM M.D. Encounter Diagnosis: Problem not documented On: 08-Sep-2018 14:30 Appointment; JAQUELIN HERNANDEZ M.D. Encounter Diagnosis: Problem not documented On: 14-Sep-2018 14:30 Appointment; LAMAR KIM M.D. Encounter Diagnosis: Problem not documented On: 27-Sep-2018 15:30
--- NOTE | 2018-10-02 16:26 | NUR ---
lactic acid 26.9--dr. lin/rianna purcell,cassidy informed
--- NOTE | 2018-10-02 16:32 | NUR ---
pt/family informed of admit to 290
[2018-10-02] MEDS ORDERED: BUMETANIDE1 MG PO (17:35)
--- NOTE | 2018-10-02 17:54 | NUR ---
PATIENT ARRIVED ON THE UNIT AT 1714 PER STRETCHER FROM THE ER. PATIENT IS AWAKE, ALERT, AND REMAINS IN STABLE CONDITION WITH NO S/S OF RESPIRATORY DISTRESS. PUREWICK APPLIED. PATIENT DENIES PAIN. RIGHT LOWER LEG (ANTERIOR AND POSTERIOR) IS RED, SWOLLEN AND WARM TO TOUCH. DRESSING OF COBAN APPLIED TO LEFT LOWER EXTREMITY. DAUGHTER PRESENT IN ROOM. BED ALARM ON. CALL LIGHT IS WITHIN REACH, PATIENT INSTRUCTED TO CALL FOR ASSISTANCE NEEDED.
[2018-10-02 18:01] VITALS: BP 144/85
[2018-10-02 18:04] VITALS: BP 144/85
[2018-10-02 18:30] VITALS: BP 144/85
--- NOTE | 2018-10-02 19:18 | NUR ---
PATIENT IS RESTING IN BED- IN STABLE CONDITION WITH NO S/S OF RESPIRATORY DISTRESS. NO PAIN VOICED. PUREWICK AND DIAPER APPLIED. BED ALARM ON. CALL LIGHT IS WITHIN REACH, PATIENT INSTRUCTED TO CALL FOR ASSISTANCE NEEDED. BEDSIDE SHIFT REPORT GIVEN TO ONCOMING NURSE.
[2018-10-02] MEDS ORDERED: SODIUM CHLORIDE 0.9% 250ML 250 ML ONE (19:59)
[2018-10-02] MEDS: ACETAMINOPHEN 325 MG TAB PO PRN (20:23)
[2018-10-02 20:24] VITALS: BP 144/65
--- NOTE | 2018-10-02 20:26 | NUR ---
PT RESTING COMFORTABLY IN BED, PT PROVIDED WATER AND REPOSITIONED IN BED AT THIS TIME. PT C/O OF PAIN 6/10 IN R LOWER LEG WITH FEVER PRESENT, TYLENOL GIVEN ORDERED. WILL CONTINUE TO MONITOR PT CLOSELY. BED IS IN LOCKED, LOW POSITION WITH CALL LIGHT IN REACH. PT RE EDUCATED ON THE USE OF THE CALL LIGHT AT THIS TIME.
[2018-10-03] VITALS (8 sets, daily range): BP systolic 120–151; BP diastolic 57–72
[2018-10-03] MEDS: ACETAMINOPHEN 325 MG TAB PO PRN ×3 (04:39→22:38)
--- NOTE | 2018-10-03 05:50 | NUR ---
PT STATES SHE "FEELS BETTER" AND THAT THE TYLENOL HELPED DECREASE HER PAIN TO AN 8/10. PT IN BED, BED IS IN LOW, LOCKED POSITION WITH CALL LIGHT IN REACH. BED ALARM IS ON.
[2018-10-03] MEDS: PIPER-TAZ 3.375 GM 50 ML IV SCH ×3 (05:51→18:10)
[2018-10-03 07:12] LABS: BASOPHILS % 0.2 % (0.0-1.0); EOSINOPHILS # (AUTO) 0.6 (0.0-0.4); EOSINOPHILS % 3.2 % (0.0-6.0); HEMOGLOBIN 11.9 g/dL (12.0-16.0); LYMPHOCYTES # (AUTO) 0.7 (1.0-3.2); MEAN CORPUSCULAR HEMOGLOBIN 46.3 pg (28-32); MEAN CORPUSCULAR HGB CONC 45.8 g/dL (31-35); MEAN CORPUSCULAR VOLUME 101.2 fL (81-99); MONOCYTES # (AUTO) 0.6 (0.2-0.8); MONOCYTES % 3.5 % (4.4-11.3); NEUTROPHILS # (AUTO) 15.6 (2.1-6.9); NEUTROPHILS % 88.5 % (38.7-80.0); PLATELET COUNT 150 x10e3/uL (140-360); RED BLOOD COUNT 2.57 x10e6/uL (3.6-5.1); RED CELL DISTRIBUTION WIDTH 13.3 % (11.7-14.4)
--- NOTE | 2018-10-03 07:22 | NUR ---
PATIENT IN BED RESTING WITH EYES CLOSED, NO RESPIRATORY DISTRESS OBSERVED. REDNESS AND SWELLING TO RIGHT LEG. BED IN LOWER POSITION, CALL LIGHT AT REACH.
[2018-10-03 07:33] LABS: ALBUMIN 2.8 g/dL (3.5-5.0); ALBUMIN/GLOBULIN RATIO 0.8 (0.8-2.0); ANION GAP 14.7 mmol/L (8-16); CALCIUM 8.8 mg/dL (8.4-10.2); CREATININE, SERUM 1.03 mg/dL (0.57-1.11); POTASSIUM 3.7 mmol/L (3.5-5.1)
--- NOTE | 2018-10-03 11:24 | NUR ---
PATIENT ASSISTED WITH ADLS, REPOSITIONED IN BED. CALL LIGHT AT REACH.
[2018-10-03] MEDS: VANCOMYCIN 1GM/NS 250 ML 250 ML IV SCH (13:07)
[2018-10-03] MEDS ORDERED: IPRATROPIUM BROMIDE 0.02% 2.5 ML NEB NEB PRN (13:15)
[2018-10-03] MEDS: HYDRALAZINE HCL 25 MG TAB PO SCH ×2 (15:25→20:12)
--- NOTE | 2018-10-03 15:32 | Consultation ---
DATE OF CONSULTATION: 10/03/2018 Ms. Dwayne De Guzman is [id number] Latin-Gibraltarian lady, patient of Dr. Kim, currently at [facility] in [place], [place]. HISTORY OF PRESENT ILLNESS: Ms. Rice is a pleasant 83-year-old lady, patient of Dr. Kim, multiple admissions this year to [facility]. She was admitted originally back in April with abdominal pain which was resolved and gone and then she had two more admissions secondary to cellulitis of her lower extremities. At this time, she is back again with redness, swelling, and pain of bilateral lower extremities, right seems to be worse than the left. The patient is a hard hearing and is a poor historian. Most of the notes and information is obtained from the medical records. Overall, the patient is very pleasant, alert and oriented. This cellulitis of the leg is going on for few days. However, she has been able to ambulate and put weight on it. Pain is kind of a dull and no other complaints. Overall, she states that she is doing better. PAST MEDICAL HISTORY: Hypertension, morbidly obese, debilitated, and arthritic changes of the extremities and digits. ALLERGIES: ALLERGY TO CODEINE, CORTISONE, GABAPENTIN, HYDROCODONE, MORPHINE, AND TRAMADOL. LABORATORY STUDIES: Sodium 138, potassium 4.2, and creatinine 1.18. White blood cells 20.98, platelets 227, and hemoglobin 12.6. Lactic acid 11.7 and then 26.9 same day, which has improved from 26.9 to 11.7. Albumin is 3.7, AST 34, and ALT 26. Blood culture and urine culture are pending. No radiology studies available.. MEDICATIONS: Medication list has been reviewed. As far as Infectious Disease point of view, the patient is on vancomycin IV and Zosyn. REVIEW OF SYSTEMS: No nausea, vomiting, fever, chills, chest pain, shortness of breath, headaches, sweats, or heat or cold intolerance. PHYSICAL EXAMINATION: GENERAL: Alert and oriented, pleasant, hard in hearing. VITAL SIGNS: Maximal temperature during this admission was 101.3, which today, this morning was 99.8, pulse of 98, respirations 18, and blood pressure 132/60. CV: S1-S2. CHEST: Equal expansion. Clear to auscultation. No acute distress. Decreased breath sounds. ABDOMEN: Soft, obese, nontender. Bowel sounds positive in four quadrants. HEENT: Moist. No pallor. No JVD. EXTREMITIES: Bilateral lower extremity edema with erythema, right worse than left. She has Bakari wraps on. There is some area of a dry skin on the right medial ankle. No active drainage or open wound noted. Right lower extremity cellulitis runs up to the thigh on the medial side other parts of the leg. No significant tenderness. Arthritic changes of the toes and edema. ASSESSMENT AND PLAN: This 83-year-old pleasant Latin-[place]ralt[place] lady admitted multiple times this year for cellulitis of her lower extremities, was treated with vancomycin IV and Zosyn in the past. We will continue with those antibiotics. Monitor patient clinically. Lactic acid has improved. We will follow up with the cultures that includes the blood in the urine. Follow up with vancomycin level. Follow the patient clinically. Please refer to chart for additional orders on the note from today, which is 10/03/2018. This case was discussed with Dr. Mathis in detail. Thank you for this consult. Dictated by Shravan Cartagena PA-C (Al) patient is seen and examined by me agree with luis felipe ross with medical team Jersey Mathis MD /KRISHL /[id number]
--- NOTE | 2018-10-03 15:50 | NUR ---
PATIENT REPOSITIONED IN BED, PUREWICK WORKING PROPERLY. CALL LIGHT AT REACH.
[2018-10-03] MEDS ORDERED: METOPROLOL TARTRATE 50 MG TAB PO SCH (17:00)
[2018-10-03] MEDS: CLONIDINE HCL 0.1 MG TAB PO SCH (17:31)
[2018-10-03] MEDS: METOPROLOL TARTRATE 25 MG TAB PO SCH (17:32)
[2018-10-03] MEDS: MELATONIN 3 MG TAB PO SCH (20:12)
--- NOTE | 2018-10-03 20:16 | NUR ---
PT RESTING COMFORTABLY IN BED AT THIS TIME. PT DENIES PAIN AND APPEARS IN NO DISTRESS. BED IS IN LOW LOCKED POSITION WITH CALL LIGHT IN REACH. PT EDUCATED TO USE THE CALL LIGHT FOR ASSISTANCE. BED ALARM IS ON.
--- NOTE | 2018-10-03 20:44 | History and Physical ---
CHIEF COMPLAINT: Ms. Rice is a very elderly and pleasant 83-year-old woman, who presented to the emergency room again with a complaint of both legs swollen, painful and red. HISTORY OF PRESENT ILLNESS: She is a poor historian, but reports her left leg was hurting more than her right leg. She has had repeated problems with cellulitis in the legs. PAST MEDICAL HISTORY: Significant especially for orthopedic problems. 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 Also had an arm fracture in August of 2013. She has longstanding hypertension. CURRENT MEDICATIONS: Please see the chart. SOCIAL HISTORY: She does not smoke or drink and lives with family. REVIEW OF SYSTEMS: Reviewing the hospital computer show repeated hospitalizations for cellulitis in July and August of this year, abdominal pain and diverticulitis in April of this year, multiple other problems and hospitalizations throughout recent years. PHYSICAL EXAMINATION: GENERAL: At this time shows a pleasant obese woman about 4 feet 10 inches tall, weighing about 185 pounds. VITAL SIGNS: Blood pressure is 124/65. HEENT: Examination of head, eyes, ears, nose, and throat is unremarkable. THORAX: Heart sounds S1, S2 are equal. No significant murmurs. LUNGS: Relatively clear. ABDOMEN: Protuberant. Normal bowel sounds. EXTREMITIES: Show both knees with healed incisions. Both legs are edematous and erythematous. PERTINENT LABORATORY STUDIES: Show white count 17.5 thousand, lactic acid is elevated 26.9 with the upper limit of normal being 19.8, BUN 20, creatinine 1.0 and glucose 96. ASSESSMENT: 1. Cellulitis. 2. Possible sepsis. 3. Hypertension. 4. Multiple orthopedic problems. PLAN: She is on broad-spectrum antibiotics. We will renew her home medications and Dr. Kim will resume her care tomorrow. MD MANA Shah/KD /[id number]
[2018-10-03] MEDS ORDERED: SIMVASTATIN 20 MG TAB PO SCH (21:00)
[2018-10-04] VITALS (7 sets, daily range): BP systolic 124–150; BP diastolic 58–76
[2018-10-04] MEDS ORDERED: SODIUM CHLORIDE 0.9% 250ML 250 ML ONE (00:36)
[2018-10-04] MEDS: PIPER-TAZ 3.375 GM 50 ML IV SCH ×4 (00:41→18:00)
[2018-10-04] MEDS: LEVALBUTEROL HCL SOLN NEBU 0.63 MG/3 ML NEB INH SCH ×4 (04:20→20:02)
--- NOTE | 2018-10-04 05:40 | NUR ---
PT RESTING COMFORTABLY IN BED. PT APPEARS IN NO DISTRESS AT THIS TIME, PT HAS NO C/O PAIN. BED IS LOCKED AND IN LOW POSITION WITH CALL LIGHT IN REACH AND BED ALARM ON.
[2018-10-04 06:21] LABS: BASOPHILS % 0.1 % (0.0-1.0); EOSINOPHILS # (AUTO) 0.7 (0.0-0.4); EOSINOPHILS % 5.1 % (0.0-6.0); HEMATOCRIT 27.8 % (34.2-44.1); HEMOGLOBIN 11.3 g/dL (12.0-16.0); LYMPHOCYTES # (AUTO) 1.7 (1.0-3.2); LYMPHOCYTES % 12.3 % (18.0-39.1); MEAN CORPUSCULAR HEMOGLOBIN 41.1 pg (28-32); MEAN CORPUSCULAR HGB CONC 40.6 g/dL (31-35); MEAN CORPUSCULAR VOLUME 101.1 fL (81-99); MONOCYTES # (AUTO) 0.7 (0.2-0.8); MONOCYTES % 5.3 % (4.4-11.3); NEUTROPHILS # (AUTO) 10.5 (2.1-6.9); NEUTROPHILS % 76.7 % (38.7-80.0); PLATELET COUNT 162 x10e3/uL (140-360); RED BLOOD COUNT 2.75 x10e6/uL (3.6-5.1); RED CELL DISTRIBUTION WIDTH 13.9 % (11.7-14.4)
[2018-10-04 06:47] LABS: ANION GAP 13.6 mmol/L (8-16); CREATININE, SERUM 0.99 mg/dL (0.57-1.11); POTASSIUM 3.6 mmol/L (3.5-5.1)
--- NOTE | 2018-10-04 07:30 | NUR ---
PT UP IN BED NO DISTRESS NOTED ,C/O PAIN TO RT LEG
[2018-10-04] MEDS: HYDRALAZINE HCL 25 MG TAB PO SCH ×3 (07:48→20:43)
[2018-10-04] MEDS: BUMETANIDE 1 MG TAB PO SCH (07:49)
[2018-10-04] MEDS: CLONIDINE HCL 0.1 MG TAB PO SCH ×2 (07:49→17:00)
[2018-10-04] MEDS: LOSARTAN POTASSIUM 100 MG TAB PO SCH (07:50)
[2018-10-04] MEDS: FERROUS SULFATE 325 MG TAB PO SCH (07:51)
[2018-10-04] MEDS: METOPROLOL TARTRATE 25 MG TAB PO SCH ×2 (07:52→17:00)
[2018-10-04] MEDS: MULTIVITAMINS/MINERALS TAB PO SCH (07:52)
[2018-10-04] MEDS: FAMOTIDINE 20 MG TAB PO SCH (07:52)
[2018-10-04] MEDS: PANTOPRAZOLE SOD 40 MG TABEC PO SCH (07:52)
[2018-10-04] MEDS: ACETAMINOPHEN 325 MG TAB PO PRN ×4 (08:44→22:48)
[2018-10-04] MEDS: VANCOMYCIN 1GM/NS 250 ML 250 ML IV SCH (12:30)
--- NOTE | 2018-10-04 14:30 | NUR ---
PT C/O RT LEG PAIN MEDICATED.PHYSICAL THERAPY HERE AMBULATED PT IN ROOM
--- NOTE | 2018-10-04 19:00 | NUR ---
Report and walking rounds completed. Patient in bed with call light within reach. No issues or concerns. Will continue to monitor.
[2018-10-04] MEDS: MELATONIN 3 MG TAB PO SCH (20:42)
[2018-10-05] VITALS (8 sets, daily range): BP systolic 131–168; BP diastolic 65–96
[2018-10-05] MEDS: PIPER-TAZ 3.375 GM 50 ML IV SCH ×4 (00:21→18:00)
[2018-10-05] MEDS: LEVALBUTEROL HCL SOLN NEBU 0.63 MG/3 ML NEB INH SCH ×4 (01:15→19:10)
[2018-10-05] MEDS: ACETAMINOPHEN 325 MG TAB PO PRN (05:21)
[2018-10-05 05:54] LABS: BASOPHILS % 0.6 % (0.0-1.0); EOSINOPHILS # (AUTO) 0.5 (0.0-0.4); EOSINOPHILS % 6.8 % (0.0-6.0); HEMATOCRIT 32.4 % (34.2-44.1); HEMOGLOBIN 10.6 g/dL (12.0-16.0); LYMPHOCYTES # (AUTO) 1.4 (1.0-3.2); LYMPHOCYTES % 18.9 % (18.0-39.1); MEAN CORPUSCULAR HEMOGLOBIN 30.4 pg (28-32); MEAN CORPUSCULAR HGB CONC 32.7 g/dL (31-35); MEAN CORPUSCULAR VOLUME 92.8 fL (81-99); MONOCYTES # (AUTO) 0.6 (0.2-0.8); MONOCYTES % 7.7 % (4.4-11.3); NEUTROPHILS # (AUTO) 4.7 (2.1-6.9); NEUTROPHILS % 65.4 % (38.7-80.0); PLATELET COUNT 159 x10e3/uL (140-360); RED BLOOD COUNT 3.49 x10e6/uL (3.6-5.1); RED CELL DISTRIBUTION WIDTH 13.4 % (11.7-14.4)
--- NOTE | 2018-10-05 06:00 | NUR ---
Resting in bed, call light within reach, no issues or concerns. Will continue to monitor.
[2018-10-05 06:19] LABS: ANION GAP 14.4 mmol/L (8-16); CALCIUM 8.6 mg/dL (8.4-10.2); CREATININE, SERUM 1.01 mg/dL (0.57-1.11); POTASSIUM 3.4 mmol/L (3.5-5.1)
[2018-10-05] MEDS: BUMETANIDE 1 MG TAB PO SCH (08:36)
[2018-10-05] MEDS: HYDRALAZINE HCL 25 MG TAB PO SCH ×3 (08:36→21:31)
[2018-10-05] MEDS: METOPROLOL TARTRATE 25 MG TAB PO SCH ×2 (08:38→17:00)
[2018-10-05] MEDS: FAMOTIDINE 20 MG TAB PO SCH (08:38)
[2018-10-05] MEDS: MULTIVITAMINS/MINERALS TAB PO SCH (08:38)
[2018-10-05] MEDS: FERROUS SULFATE 325 MG TAB PO SCH (08:38)
[2018-10-05] MEDS: PANTOPRAZOLE SOD 40 MG TABEC PO SCH (08:38)
[2018-10-05] MEDS: LOSARTAN POTASSIUM 100 MG TAB PO SCH (08:38)
[2018-10-05] MEDS: CLONIDINE HCL 0.1 MG TAB PO SCH ×2 (08:38→17:00)
[2018-10-05] MEDS ORDERED: POTASSIUM CHLORIDE 20 MEQ TAB CR PO STA (09:43)
--- NOTE | 2018-10-05 11:45 | NUR ---
CALL RECEIVED FROM [facility] / [facility]. SPOKE W ASHLEY COX, REINALDO @ [phone] EXT [phone]. LIST OF SNF GIVEN. LIST GIVEN TO [facility]. ASHLEY STATES PT ALSO HAS [facility] A 3RD POLICY
--- NOTE | 2018-10-05 11:48 | NUR ---
DISCHARGE CM FOR [facility]: ASHLEY COX: [phone] EXT. [phone] PLEASE CALL WITH ANY DISCHARGE PLANS FOR PATIENT
--- NOTE | 2018-10-05 12:01 | NUR ---
PT HAS SNF BENEFITS CM IS ASHLEY GENAO [phone] EXT [phone], [facility] ARE [facility] OF [facility], [facility], [facility]. WILL GTE CHOICE AND FAX CLINICALS AND CM INFORMATION.
[2018-10-05] MEDS: VANCOMYCIN 1GM/NS 250 ML 250 ML IV SCH (13:24)
--- NOTE | 2018-10-05 15:29 | NUR ---
PT WILL HAVE TO PAY A 30% COPAY AFTER DEDUCTIBLE HAS BEEN MET AT THE [facility] WHICH WILL BE APPROXIMATELY $200 A DAY, CALLED DAUGHTER MARCIAL [phone] LET HER KNOW AND SHE STATES SHE CANNOT AFFORD THAT, THE PT WILL HAVE TO RETURN HOME. Addendum: 10/05/18 at 1734 by Celia Moya CM IF PT DC'S HOME W IV ABX USE [facility] @ [phone].
--- NOTE | 2018-10-05 17:32 | NUR ---
PT IN BED RESTING NO DISTRESS NTOED.DENIES PAIN
--- NOTE | 2018-10-05 19:00 | NUR ---
RECEIVED PATIENT IN BEDSIDE REPORT. PATIENT RESTING IN BED AT THIS TIME, ALTERNATING PRESSURE PUMP ACTIVE. NO PAIN REPORTED. NO S&S OF DISTRESS NOTED. BED LOCKED IN LOWEST POSITION, SIDE RAILS UPX2, CALL LIGHT IN REACH.
[2018-10-05] MEDS: MELATONIN 3 MG TAB PO SCH (21:31)
[2018-10-06] VITALS: BP 144/69
[2018-10-06] MEDS: PIPER-TAZ 3.375 GM 50 ML IV SCH ×3 (00:19→11:47)
[2018-10-06] MEDS: LEVALBUTEROL HCL SOLN NEBU 0.63 MG/3 ML NEB INH SCH ×3 (01:15→12:55)
[2018-10-06 04:00] VITALS: BP 185/77
[2018-10-06 07:07] LABS: ANION GAP 16.5 mmol/L (8-16); CALCIUM 9.3 mg/dL (8.4-10.2); POTASSIUM 3.5 mmol/L (3.5-5.1)
[2018-10-06 07:30] VITALS: BP 161/68
--- NOTE | 2018-10-06 07:40 | NUR ---
PATIENT IS AWAKE AND IN STABLE CONDITION WITH NO S/S OF RESPIRATORY DISTRESS. NO PAIN VOICED. BED ALARM ON. CALL LIGHT IS WITHIN REACH, PATIENT INSTRUCTED TO CALL FOR ASSISTANCE NEEDED.
[2018-10-06] MEDS: HYDRALAZINE HCL 25 MG TAB PO SCH (08:47)
[2018-10-06] MEDS: CLONIDINE HCL 0.1 MG TAB PO SCH (08:47)
[2018-10-06] MEDS: LOSARTAN POTASSIUM 100 MG TAB PO SCH (08:47)
[2018-10-06] MEDS: BUMETANIDE 1 MG TAB PO SCH (08:47)
[2018-10-06] MEDS: FERROUS SULFATE 325 MG TAB PO SCH (08:47)
[2018-10-06] MEDS: METOPROLOL TARTRATE 25 MG TAB PO SCH (08:48)
[2018-10-06] MEDS: MULTIVITAMINS/MINERALS TAB PO SCH (08:48)
[2018-10-06] MEDS: PANTOPRAZOLE SOD 40 MG TABEC PO SCH (08:48)
[2018-10-06] MEDS: FAMOTIDINE 20 MG TAB PO SCH (08:48)
[2018-10-06] MEDS ORDERED: POTASSIUM CHLORIDE 10MEQ EA PO SCH (09:00)
[2018-10-06] MEDS ORDERED: DOXYCYCLINE HY100 MG PO (09:47)
[2018-10-06] MEDS ORDERED: CIPRO500 MG PO (09:47)
[2018-10-06 09:59] VITALS: BP 161/68
[2018-10-06 11:15] VITALS: BP 134/60
--- NOTE | 2018-10-06 11:22 | NUR ---
CALL PLACED OUT TO DR. ROLLINS REGARDING CASE MANAGEMENT ORDER- AWAITING CALLBACK.
--- NOTE | 2018-10-06 12:12 | Discharge Summary ---
DISCHARGE DIAGNOSES: 1. Bilateral leg cellulitis, improving. 2. Urinary tract infection, now resolved. 3. Hypertension, controlled. 4. Rheumatoid arthritis. HOSPITAL COURSE: Ms. Rice is a pleasant 83-year-old lady, well known to me from the office and prior hospital admissions. She has extensive medical history and she has had at least three or four admissions in the last few months to this hospital because of leg cellulitis. She is returning with increasing edema, erythema, and low-grade temperature for evaluation to the emergency room. She was found to have a high WBC count of 21,000, and she was then admitted to the hospital for medical therapy. She was started on a combination of Zosyn and vancomycin. A consultation was requested with Infectious Disease. They agree with the antibiotic choice and this was continued for the next few days until the patient's white cell count returned to normal. She has been afebrile, the lower extremity edema quickly resolved with bed rest and erythema has nearly gone away. She is being discharged home in stable condition. She is given prescriptions for a combination of oral doxycycline and ciprofloxacin to take for the next three weeks. She is to follow up in my office in two weeks' time. MD CATHY Shine/KD /[id number]
[2018-10-06] MEDS: VANCOMYCIN 1GM/NS 250 ML 250 ML IV SCH (13:00)
--- NOTE | 2018-10-06 13:57 | NUR ---
DISCUSSED IN BARRIER ROUNDS PT TO GO HOME TODAY, THERAPY STATES PT NEEDS A BEDSIDE COMMODE, PT STATES ALREADY HAVE ONE. FAMILY TO ENVIRONMENTAL [employer] AFTER GET OFF WORK TODAY AT 1PM.
--- NOTE | 2018-10-06 14:56 | NUR ---
PATIENT DISCHARGE HOME- PATIENT OFF THE UNIT AT 1450 PER WHEELCHAIR ACCOMPANIED BY RN TO THE FRONT LOBBY. PATIENT IS IN STABLE CONDITION WITH NO S/S OF RESPIRATORY DISTRESS. NO PAIN VOICED. IV REMOVED WITH TIP INTACT. DISCHARGE TEACHING, INSTRUCTIONS, AND MEDICATIONS GIVEN TO THE PATIENT. ALL PERSONAL ITEMS TAKEN WITH THE PATIENT AND HER DAUGHTER.
== END 2018-10-06 14:58 | disposition home or self-care (01) | DRG 872 ==
LOC: ER 12:35 → ERHOLD 16:15 → MED/SURG3 17:01
PROVIDERS: ADMIT Internal Medicine; ATTEND Internal Medicine
DX: A41.9 Sepsis, unspecified organism (principal); L03.116 Cellulitis of left lower limb; N39.0 Urinary tract infection, site not specified; L03.115 Cellulitis of right lower limb; M06.9 Rheumatoid arthritis, unspecified; E66.9 Obesity, unspecified; Z68.37 Body mass index [BMI] 37.0-37.9, adult; I10 Essential (primary) hypertension; D64.9 Anemia, unspecified; I89.0 Lymphedema, not elsewhere classified; J84.10 Pulmonary fibrosis, unspecified; Z86.73 Personal history of transient ischemic attack (TIA), and cerebral infarction without residual deficits; I25.10 Atherosclerotic heart disease of native coronary artery without angina pectoris; I48.91 Unspecified atrial fibrillation; E78.5 Hyperlipidemia, unspecified
CPT/HCPCS: 36415; 80048; 80053; 80202; 81001; 82550; 82553; 83605; 83880; 84484; 85025; 85610; 85730; 87040; 87086; 87186; 93005; 94640; 97139; 99284; J2543; J3370; J7030; J7050